=== PATIENT | female | born 1965 | race Two or more races ===

== ENCOUNTER 2020-09-06 09:55 | Outpatient (REF) | payer OTHER, SELFPAY ==
--- NOTE | ~2020-09-06 | MM_ITS ---
EXAMINATION: MM SCREENING DIGITAL BREAST TOMOSYNTHESIS, BILATERAL CLINICAL INFORMATION: Screening. Asymptomatic. The lifetime risk of breast cancer based on the Tyrer-Cuzick Model is 12%. COMPARISON: Mammography: 03/25/2019, 03/13/2018, 10/12/2016, 07/21/2015 TECHNIQUE: Digital breast tomosynthesis is performed in both the craniocaudal and mediolateral oblique views along with computer-aided detection (CAD). Synthesized 2D images are generated from the tomosynthesis. FINDINGS: There are scattered areas of fibroglandular density (ACR BI-RADS breast composition Category b). There are no significant masses, abnormal calcifications, or other abnormalities. Parenchymal pattern is similar to prior exams. No developing density. No significant changes. MM/MM tomosynthesis screening BI IMPRESSION: No mammographic evidence of malignancy. ASSESSMENT: BI-RADS 1: Negative RECOMMENDATION: Routine annual mammography screening. This patient's information was entered into a reminder system with a target due date for their next mammogram.
== END 2020-09-06 09:56 | disposition home or self-care (01) ==
LOC: HO.MAMMO 09:55
PROVIDERS: Visit Provider Internal Medicine
DX: Z12.31 Encounter for screening mammogram for malignant neoplasm of breast (principal)
CPT/HCPCS: 77063; 77067

== ENCOUNTER 2021-01-01 07:59 | Outpatient (REF) | payer OTHER, SELFPAY ==
[2021-01-01 08:49] LABS: Basophils Percent Auto 0.2 % (0-2); Eosinophils Absolute Auto 0.1 X10*3/uL (0.0-0.4); Eosinophils Percent Auto 1.5 % (0-4); Hematocrit 45.7 % (37-47); Hemoglobin 14.5 g/dl (12.0-16.0); Imm Gran Abs Auto 0.03 X10*3/uL (0.00-0.03); Imm Gran Pct Auto 0.4 % (0.0-0.4); Lymphocytes Absolute Auto 2.3 X10*3/uL (1.2-4.9); Lymphocytes Percent Auto 27.4 % (20-40); MANUAL DIFF FLAG SCAN; Mean Corpuscular HGB Conc 31.7 g/dl (31.0-35.0); Mean Corpuscular Hemoglobin 29.1 pg (27.0-33.0); Mean Corpuscular Volume 91.6 fL (80-98); Mean Platelet Volume 11.9 fL (9.4-12.3); Monocytes Absolute Auto 0.8 X10*3/uL (0.1-1.2); Monocytes Percent Auto 8.8 % (2-11); Neutrophils Absolute Auto 5.2 X10*3/uL (2.0-8.3); Neutrophils Percent Auto 61.7 % (45-73); Platelet Count 212 X10*3/uL (160-400); Red Blood Count 4.99 X10*6/uL (4.20-5.50); Red Cell Distribution Width 14.6 % (11.0-16.0); SCAN SMEAR FLAG 1; White Blood Count 8.5 X10*3/uL (4.8-10.8)
[2021-01-01 09:14] LABS: Alanine Aminotransferase 14 U/L (0-31); Albumin Level 4.1 g/dL (3.5-5.0); Alkaline Phosphatase 86 U/L (39-117); Anion Gap 13 (12-20); Aspartate Amino Transferase 19 U/L (5-31); Bilirubin Total 0.4 mg/dL (0.0-1.0); Blood Urea Nitrogen 7 mg/dL (9-16); Calcium 10.1 mg/dL (8.4-10.2); Carbon Dioxide 30 mmol/L (22-29); Chloride 106 mmol/L (96-108); Cholesterol 164 mg/dL; Estimated Glomerular Filt Rate > 60; Glucose Random 93 mg/dL (60-115); HDL Cholesterol 32 mg/dL; LDL Cholesterol Calculated 111 mg/dl; Potassium 5.6 mmol/L (3.3-5.1); Sodium 143 mmol/L (135-145); Total Protein 6.7 g/dL (6.5-8.0); Triglycerides 105 mg/dL
[2021-01-01 09:19] LABS: SLIDE REVIEW VERIFIED
[2021-01-01 09:35] LABS: Free T4 (Free Thyroxine) 0.82 ng/dL (0.71-1.85); Thyroid Stimulating Hormone 1.29 uIU/mL (0.32-4.0)
[2021-01-03 04:22] LABS: Folate 10.6 ng/mL (> or = 4.0); Vitamin B12 239 pg/mL (200-900)
== END 2021-01-01 08:00 | disposition home or self-care (01) ==
LOC: HO.LAB 07:59
PROVIDERS: Visit Provider Internal Medicine
DX: K21.9 Gastro-esophageal reflux disease without esophagitis (principal); E78.00 Pure hypercholesterolemia, unspecified
CPT/HCPCS: 36415; 80053; 80061; 82607; 82746; 84439; 84443; 85025

== ENCOUNTER 2021-01-26 07:34 | Outpatient (REF) | payer OTHER, SELFPAY ==
[2021-01-26 09:41] LABS: Anion Gap 12 (12-20); Blood Urea Nitrogen 6 mg/dL (9-16); Calcium 9.5 mg/dL (8.4-10.2); Carbon Dioxide 29 mmol/L (22-29); Chloride 106 mmol/L (96-108); Estimated Glomerular Filt Rate > 60; Glucose Random 89 mg/dL (60-115); Potassium 4.5 mmol/L (3.3-5.1); Sodium 142 mmol/L (135-145)
== END 2021-01-26 07:35 | disposition home or self-care (01) ==
LOC: HO.LAB 07:34
PROVIDERS: PCP Internal Medicine; Visit Provider Internal Medicine
DX: E87.5 Hyperkalemia (principal)
CPT/HCPCS: 36415; 80048

== ENCOUNTER 2021-07-12 11:23 | Outpatient (REF) | payer OTHER, SELFPAY ==
[2021-07-12 12:08] LABS: COVID-19 Test Positive (Negative)
== END 2021-07-12 11:24 | disposition home or self-care (01) ==
LOC: HO.LAB 11:23
PROVIDERS: Visit Provider Internal Medicine
DX: Z20.822 Contact with and (suspected) exposure to COVID-19 (principal)
CPT/HCPCS: 87635; C9803

== ENCOUNTER 2021-07-18 08:28 | Outpatient (REF) | payer OTHER, SELFPAY ==
[2021-07-18 09:46] LABS: Binax Internal Control QC Valid; Binax Now Covid-19 Ag Negative (Negative)
== END 2021-07-18 08:29 | disposition home or self-care (01) ==
LOC: HO.LAB 08:28
PROVIDERS: Visit Provider Internal Medicine
DX: Z20.822 Contact with and (suspected) exposure to COVID-19 (principal)
CPT/HCPCS: C9803

== ENCOUNTER 2021-07-28 13:08 | Outpatient (REF) | payer OTHER, SELFPAY ==
[2021-07-28 18:28] LABS: CT PCR NOT DETECTED (Not Detect.); NG PCR NOT DETECTED (Not Detect.)
[2021-08-02 23:27] LABS: HPV mRNA E6/E7 rflx Not Detected (Not Detected)
== END 2021-07-28 13:09 | disposition home or self-care (01) ==
LOC: HO.LAB 13:08
PROVIDERS: PCP Internal Medicine; Visit Provider Advanced Practice Midwife
DX: Z01.419 Encounter for gynecological examination (general) (routine) without abnormal findings (principal); Z11.3 Encounter for screening for infections with a predominantly sexual mode of transmission; Z11.8 Encounter for screening for other infectious and parasitic diseases; Z11.51 Encounter for screening for human papillomavirus (HPV); E78.00 Pure hypercholesterolemia, unspecified; E55.9 Vitamin D deficiency, unspecified; F17.210 Nicotine dependence, cigarettes, uncomplicated; Z88.6 Allergy status to analgesic agent; Z88.0 Allergy status to penicillin; Z78.0 Asymptomatic menopausal state
CPT/HCPCS: 87491; 87591; 87624; 88142

== ENCOUNTER 2021-08-05 10:10 | Outpatient (REF) | payer OTHER, SELFPAY ==
[2021-08-05 10:28] LABS: COVID-19 Test Negative (Negative)
== END 2021-08-05 10:11 | disposition home or self-care (01) ==
LOC: HO.LAB 10:10
PROVIDERS: Visit Provider Internal Medicine
DX: Z20.822 Contact with and (suspected) exposure to COVID-19 (principal)
CPT/HCPCS: 87635; C9803

== ENCOUNTER → 2021-08-25 15:11 | Outpatient (REF) | payer OTHER, SELFPAY ==
--- NOTE | 2021-08-25 15:16 | ECG_ITS ---
Test Reason : M54.9 Blood Pressure : / mmHG Vent. Rate : 072 BPM Atrial Rate : 072 BPM P-R Int : 130 ms QRS Dur : 078 ms QT Int : 394 ms P-R-T Axes : 075 065 065 degrees QTc Int : 431 ms Normal sinus rhythm Normal ECG When compared to the previous EKG of No significant changes seen Referred By: Jaymie Kaufman Electronically Signed By:Jose Burgos
== END ==
LOC: HO.CARD 15:11
PROVIDERS: PCP Internal Medicine; Visit Provider Nurse Practitioner Family
DX: M54.9 Dorsalgia, unspecified (principal)
CPT/HCPCS: 93005

== ENCOUNTER 2021-09-08 10:35 | Outpatient (REF) | payer OTHER, SELFPAY ==
--- NOTE | ~2021-09-08 | MM_ITS ---
EXAMINATION: MM SCREENING DIGITAL BREAST TOMOSYNTHESIS, BILATERAL CLINICAL INFORMATION: Screening. Asymptomatic. The lifetime risk of breast cancer based on the Tyrer-Cuzick Model is 7%. COMPARISON: Mammography: 09/06/2020, 03/25/2019, 03/13/2018 TECHNIQUE: Digital breast tomosynthesis is performed in both the craniocaudal and mediolateral oblique views along with computer-aided detection (CAD). Synthesized 2D images are generated from the tomosynthesis. FINDINGS: There are scattered areas of fibroglandular density (ACR BI-RADS breast composition Category b). There are no significant masses, abnormal calcifications, or other abnormalities. Parenchymal pattern is similar to prior studies. The axilla and skin contours are unremarkable. No significant changes. MM/MM tomosynthesis screening BI IMPRESSION: No mammographic evidence of malignancy. ASSESSMENT: BI-RADS 1: Negative RECOMMENDATION: Routine annual mammography screening. This patient's information was entered into a reminder system with a target due date for their next mammogram.
== END 2021-09-08 10:36 | disposition home or self-care (01) ==
LOC: HO.MAMMO 10:35
PROVIDERS: PCP Internal Medicine; Visit Provider Internal Medicine
DX: Z12.31 Encounter for screening mammogram for malignant neoplasm of breast (principal)
CPT/HCPCS: 77063; 77067

== ENCOUNTER 2021-11-04 09:03 | Emergency (ER) | payer OTHER, SELFPAY ==
--- NOTE | ~2021-11-04 | CT_ITS ---
EXAMINATION: CT HEAD WITHOUT CONTRAST CLINICAL INFORMATION: New dizziness. COMPARISON: Head CT scan dated 02/14/2007. TECHNIQUE: Contiguous axial imaging was performed from the skull base to vertex without intravenous administration of contrast. Coronal and sagittal reformatted images were obtained. This CT examination was performed using dose optimization techniques as appropriate, variously including the following: *Automated exposure control *Adjustment of mA and/or kV according to patient size (this includes techniques or standardized protocols for targeted exams where dose is matched to indication/reason for exam; i.e. extremities or head) *Use of iterative reconstruction technique DLP: 604 mGy-cm FINDINGS: There is no evidence of acute intracranial hemorrhage or territorial infarction. No abnormal mass effect or midline shift is seen. Douglas to white matter differentiation is well preserved. No extra-axial fluid collections are identified. The ventricles are normal in size. There is no abnormal attenuation within the brain parenchyma. The osseous structures and soft tissues are normal. The mastoid air cells and visualized portions of the paranasal sinuses are well aerated. CT/CT head/brain wo con IMPRESSION: No acute intracranial pathology.
[2021-11-04 09:07] VITALS: BP 152/63; PULSE 72; RESP 19; TEMP 36.6; O2SAT 100; BMI 20.1
[2021-11-04 10:34] VITALS: PULSE 59; RESP 16; O2SAT 100
[2021-11-04] MEDS: Ondansetron ODT 4 MG TAB.RAPDIS TRANSLINGU (10:41)
[2021-11-04] MEDS: Acetaminophen 325 MG TABLET 650 MG PO (10:41)
[2021-11-04] MEDS: Meclizine HCl 25 MG TABLET 50 MG PO (10:42)
--- NOTE | 2021-11-04 10:43 | PC.NURSE ---
Neuros are intact. Per Lindsey, small effusion noted in left ear. Speech clear. Denies cp or SOB. Sinus ozzy on tele
--- NOTE | 2021-11-04 11:18 | ED.DIZZY ---
HPI - Dizziness General Chief Complaint: Dizziness Stated Complaint: dizziness Time Seen by Provider: 11/04/21 10:04 Related Data Home Medications Medication Instructions Recorded Confirmed docusate sodium 100 mg capsule 100 mg PO DAILY 05/06/20 08/25/21 (Colace) eletriptan 20 mg tablet (Relpax) 20 mg PO Q2-4H PRN 05/06/20 08/25/21 Previous Rx's Medication Instructions Recorded omeprazole 20 mg capsule,delayed 20 mg PO DAILY #30 cap 05/06/20 release bupropion HCl 100 mg tablet,12 hr 100 mg PO TID #60 cap 06/15/20 sustained-release propranolol 10 mg tablet 10 mg PO BID #60 tab 09/20/20 amitriptyline 10 mg tablet 10 mg PO DAILY #90 tab 02/22/21 lidocaine 4 % topical patch 1 patch TOPICAL DAILY PRN #15 ea 08/25/21 (Aspercreme (lidocaine)) naproxen 500 mg tablet (Naprosyn) 500 mg PO BID PRN #20 tab 08/25/21 polyethylene glycol 3350 17 17 g PO DAILY #850 g 08/25/21 gram/dose oral powder (Miralax) tizanidine 2 mg tablet 2 mg PO BEDTIME PRN #7 tab 08/25/21 Allergies Allergy/AdvReac Type Severity Reaction Status Date / Time morphine [MORPHINE] Allergy Intermediate VOMITING Verified 08/25/21 14:50 Penicillins [PENICILLINS] Allergy Intermediate RASH Verified 08/25/21 14:50 PMFSH Past Medical History Medical History GERD (gastroesophageal reflux disease) Hypercholesterolemia Migraine Smoking Tobacco abuse Vitamin D deficiency Surgical History History of removal of ovarian cyst Family History Family History Father CVD (cardiovascular disease) Stroke FH: prostate cancer Mother Diabetes CVD (cardiovascular disease) Hypertension Sister Cancer Breast carcinoma Maternal Aunt Cancer Maternal Grandmother CVD (cardiovascular disease) Brother Substance abuse Social History Social History Housing: Apartment Alcohol intake: current Alcohol intake frequency: does not drink Patient Tobacco Use Status: Never used Tobacco Cigarette Packs Per Day: 0.25 Cigarettes Per Day: 5 e-Cigarette/Vaping Use: Never Used Second Hand Smoke Exposure: Yes Use of substances other than those prescribed or required for medical reasons: No Advance Directives: No Advance Directives Information Provided: Yes service: No Current occupational status: employed Physical Exam Vital Signs: Vital Signs: Last Vital Signs Temp 98 F 11/04/21 09:07 Pulse 59 11/04/21 10:34 Resp 16 11/04/21 10:34 BP 152/63 H 11/04/21 09:07 Pulse Ox 100 11/04/21 10:34 BMI result Body Mass Index 20.1 Discharge Plan Discharge Prescriptions: No Action bupropion HCl 100 mg tablet sustained-release 12 hr 100 mg PO TID Qty: 60 2RF propranolol 10 mg tablet 10 mg PO BID Qty: 60 11RF amitriptyline 10 mg tablet 10 mg PO DAILY Qty: 90 2RF docusate sodium [Colace] 100 mg capsule 100 mg PO DAILY 0RF eletriptan [Relpax] 20 mg tablet 20 mg PO Q2-4H PRN0RF Rx Instructions: do not exceed 4 doses per 24 hrs omeprazole 20 mg capsule,delayed release(DR/EC) 20 mg PO DAILY Qty: 30 5RF polyethylene glycol 3350 [Miralax] 17 gram/dose powder 17 g PO DAILY Qty: 850 0RF lidocaine [Aspercreme (lidocaine HCl)] 4 % adhesive patch,medicated 1 patch topical DAILY PRN (Reason: pain) Qty: 15 0RF naproxen [Naprosyn] 500 mg tablet 500 mg PO BID PRN (Reason: pain) Qty: 20 0RF tizanidine 2 mg tablet 2 mg PO BEDTIME PRN (Reason: muscle spasticity) Qty: 7 0RF
--- NOTE | 2021-11-04 11:21 | ED_ITS ---
HPI - Dizziness General Chief Complaint: Dizziness Stated Complaint: dizziness Time Seen by Provider: 11/04/21 10:04 Source: patient Mode of arrival: ambulatory Limitations: no limitations History of Present Illness HPI Narrative: 56-year-old female presents with sudden onset of vertigo that started yesterday morning at 07:00. Patient woke up, and when she sat up in bed, the room was spinning. The sensation of spinning is worse with movement, worse when she turns her head. She feels nauseous. It is hard to walk because of the spinning. No vomiting, no fevers, no recent upper respiratory infection, no his tory of seasonal allergies, no chest pain, no shortness of breath. Patient describes vertigo, as if getting off a boat and the ground is uneven, or what happens when you drink too much alcohol. She is not endorsing lightheadedness or presyncope. Patient has never had this before this is a new symptom. Related Data Home Medications Medication Instructions Recorded Confirmed docusate sodium 100 mg capsule 100 mg PO DAILY 05/06/20 08/25/21 (Colace) eletriptan 20 mg tablet (Relpax) 20 mg PO Q2-4H PRN 05/06/20 08/25/21 Previous Rx's Medication Instructions Recorded omeprazole 20 mg capsule,delayed 20 mg PO DAILY #30 cap 05/06/20 release bupropion HCl 100 mg tablet,12 hr 100 mg PO TID #60 cap 06/15/20 sustained-release propranolol 10 mg tablet 10 mg PO BID #60 tab 09/20/20 amitriptyline 10 mg tablet 10 mg PO DAILY #90 tab 02/22/21 lidocaine 4 % topical patch 1 patch TOPICAL DAILY PRN #15 ea 08/25/21 (Aspercreme (lidocaine)) naproxen 500 mg tablet (Naprosyn) 500 mg PO BID PRN #20 tab 08/25/21 polyethylene glycol 3350 17 17 g PO DAILY #850 g 08/25/21 gram/dose oral powder (Miralax) tizanidine 2 mg tablet 2 mg PO BEDTIME PRN #7 tab 08/25/21 meclizine 25 mg tablet 25 mg PO BID PRN #14 tab 11/04/21 ondansetron 4 mg disintegrating 4 mg PO Q8H PRN #9 tab 11/04/21 tablet Allergies Allergy/AdvReac Type Severity Reaction Status Date / Time morphine [MORPHINE] Allergy Intermediate VOMITING Verified 08/25/21 14:50 Penicillins [PENICILLINS] Allergy Intermediate RASH Verified 08/25/21 14:50 Review of Systems Constitutional: Constitutional: Denies body ache(s), Denies chills, Denies fatigue, Denies fever(s), Denies headache(s), Denies malaise and Denies weakness Eyes: Eyes: Denies diplopia and Denies loss of vision ENT: Reports Normal hearing present, Reports vertigo, Reports dizziness, Denies otalgia, Denies headache(s), Denies mouth pain, Denies neck pain, Denies post nasal drip, Denies sinus pain, Denies sinus pressure, Denies sore throat and Denies throat swelling Cardiovascular: Cardiovascular: Denies chest pain, Denies syncope, Denies leg edema, Denies lightheadedness, Denies Loss of Consciousness, Denies palpitations and Denies dyspnea Respiratory: Respiratory: Denies chest congestion, Denies cough and Denies dyspnea Gastrointestinal: Gastrointestinal: Denies abdominal pain, Denies hematochezia, Denies constipation, Denies diarrhea, Reports nausea and Denies vomiting Musculoskeletal: Musculoskeletal: Reports no additional musculoskeletal complaints, Denies muscle weakness, Denies neck pain and Denies tingling Neurologic: Reports Normal hearing present, Denies Neuro-related abnormal movements, Denies Abnormal speech present, Denies burning sensations, Denies confusion, Reports vertigo, Reports dizziness, Denies syncope, Denies headache(s), Denies focal weakness, Denies loss of vision, Denies Other visual disturbances, Denies seizure-like activity, Denies Sensory deficit (Neuro), Denies tingling, Denies paresthesias and Denies weakness Psychiatric: Psychiatric: Denies anxiety, Denies confusion and Denies depression Endocrine: Endocrine: Denies fatigue and Denies palpitations Allergic/Immunologic: Allergic/Immunologic: Denies throat swelling PMFSH Past Medical History Medical History GERD (gastroesophageal reflux disease) Hypercholesterolemia Migraine Smoking Tobacco abuse Vitamin D deficiency Surgical History History of removal of ovarian cyst Family History Family History Father CVD (cardiovascular disease) Stroke FH: prostate cancer Mother Diabetes CVD (cardiovascular disease) Hypertension Sister Cancer Breast carcinoma Maternal Aunt Cancer Maternal Grandmother CVD (cardiovascular disease) Brother Substance abuse Social History Social History Housing: Apartment Alcohol intake: current Alcohol intake frequency: does not drink Patient Tobacco Use Status: Never used Tobacco Cigarette Packs Per Day: 0.25 Cigarettes Per Day: 5 e-Cigarette/Vaping Use: Never Used Second Hand Smoke Exposure: Yes Use of substances other than those prescribed or required for medical reasons: No Advance Directives: No Advance Directives Information Provided: Yes service: No Current occupational status: employed Physical Exam Vital Signs: Vital Signs: Last Vital Signs Temp 98 F 11/04/21 09:07 Pulse 59 11/04/21 10:34 Resp 16 11/04/21 10:34 BP 152/63 H 11/04/21 09:07 Pulse Ox 100 11/04/21 10:34 BMI result Body Mass Index 20.1 Const: General: No confusion Nutritional Appearance: well nourished Orientation/consciousness: patient oriented x3 and No confusion Limitations: no limitations HEENT: Head: Yes normal to inspection, Yes normocephalic and Yes atraumatic Ears: hearing grossly normal bilaterally, external ears normal, TM normal on the right, EAC's normal and TM abnormal wth effusion serosanguinous on the left General nose exam: Normal external nose present Face and sinus: Yes normal facial exam and Yes sinuses nontender Mouth: Normal oral and palatal mucosa present Throat: Yes posterior oropharynx normal Eyes: Conjunctivae: conjunctivae normal Pupils: Equal, round and reactive pupils present EOM: EOMs intact bilaterally and No Nystagmus present Neck: Neck: Yes full ROM, Yes no lymphadenopathy and Yes supple Resp: Effort & Inspection: normal respiratory effort and able to speak in complete sentences Auscultation: clear to auscultation bilaterally, no crackles, no rales, no rhonchi and no wheezes Cardio: Rate: regular rate Rhythm: regular rhythm Heart sounds: S1 normal heart sound present and S2 normal heart sound present GI: Inspection: Yes normal to inspection Palpation (GI): Soft to palpation, nontender, no guarding and not rigid Percussion: Yes normal to percussion Auscultation: normal bowel sounds Skin: General skin exam: no rashes or lesions noted Neuro: General: patient oriented x3, No confusion and Unable to assess gait (due to dizziness) Cranial nerves: Yes CN's II-XII intact bilaterally, Yes Facial sensation intact/muscles of mastication intact, Yes Equal, round and reactive pupils present, Yes Normal accommodation reflex present, Yes Bilaterally intact EOM present, Yes Nystagmus not present, Yes Normal facial strength present, Yes Midline tongue present, Yes Normal hearing present, Yes Ability to bilaterally rotate head present, Yes Ability to bilaterally elevate shoulders present and No Nystagmus present Cognition (Neuro): normal cognition Speech: No Abnormal speech present Gait exam (Neuro): Unable to assess gait (due to dizziness) Motor exam (neuro): 5/5 motor strength present throughout and Pronator motor function not present Sensory Exam: No Sensory deficit (Neuro) Deep tendon reflexes (DTR's): Right brachioradialis reflex intensity grade: 1+, Left brachioradialis reflex intensity grade: 1+, Right patellar reflex intensity grade: 1+ and Left patellar reflex intensity grade: 1+ Coordination: [id number] test normal and [id number] test normal Romberg Test: Negative Pupils: Normal pupillary reactivity/response: bilateral Extrem: General: Yes normal to inspection and Yes full ROM Psych: Appearance: grossly normal Affect: normal affect Attitude: cooperative Thought process: Normal thought process present Course Course Course Narrative: 56-year-old female with a past medical history of generalized anxiety disorder, GERD, hyperlipidemia, and migraine, presents with sudden onset of vertigo that started yesterday morning at 07:00. Patient woke up, and when she sat up in bed, the room was spinning. The sensation of spinning is worse with movement, worse when she turns her head. She feels nauseous. It is hard to walk because of the spinning. No vomiting, no fevers, no recent upper respiratory infection, no history of seasonal allergies, no chest pain, no shortness of breath. Patient describes vertigo, as if getting off a boat and the ground is uneven, or what happens when you drink too much alcohol. She is not endorsing lightheadedness or presyncope. Patient has never had this before this is a new symptom. On exam, patient has stable vitals, is alert and oriented x4, GCS 15, completely neurologically intact. Did not walk patient because her vertigo worsens with movement and with sitting up There is a left TM opaque effusion, ENT exam otherwise normal Will get head CT as this is the 1st episode of vertigo, will try meclizine, Tylenol, Zofran Reevaluation(s) Reevaluation #1: On re-exam, patient's dizziness has almost entirely resolved Head CT is normal Patient walked twice with the nurse, no vertigo she was able to ambulate without assistance and without problem Most likely benign paroxysmal positional vertigo. Will have patient follow-up with primary care provider Will order meclizine and Zofran Gave return precautions. Patient verbalized agreement and understanding Discharge Plan Discharge Clinical Impression: Benign paroxysmal positional vertigo of left ear Patient Disposition: Home, Self-Care Instructions: Benign Paroxysmal Positional Vertigo (ED) Additional Instructions: Please call your primary care provider for follow-up appointment from today's emergency room visit. Please fill your prescriptions and take them as needed. Do not take more than 2 tablets of meclizine at once. Do not take more than 2 tablets of meclizine every 8 hours. If you have sudden severe headache, vomiting, fevers, chest pain, shortness of breath, or any other new or concerning symptoms, please return to emergency room Prescriptions: New meclizine 25 mg tablet 25 mg PO BID PRN (Reason: dizziness) Qty: 14 0RF ondansetron 4 mg tablet,disintegrating 4 mg PO Q8H PRN (Reason: nausea and vomiting) Qty: 9 0RF No Action bupropion HCl 100 mg tablet sustained-release 12 hr 100 mg PO TID Qty: 60 2RF propranolol 10 mg tablet 10 mg PO BID Qty: 60 11RF amitriptyline 10 mg tablet 10 mg PO DAILY Qty: 90 2RF docusate sodium [Colace] 100 mg capsule 100 mg PO DAILY 0RF eletriptan [Relpax] 20 mg tablet 20 mg PO Q2-4H PRN0RF Rx Instructions: do not exceed 4 doses per 24 hrs omeprazole 20 mg capsule,delayed release(DR/EC) 20 mg PO DAILY Qty: 30 5RF polyethylene glycol 3350 [Miralax] 17 gram/dose powder 17 g PO DAILY Qty: 850 0RF lidocaine [Aspercreme (lidocaine HCl)] 4 % adhesive patch,medicated 1 patch topical DAILY PRN (Reason: pain) Qty: 15 0RF naproxen [Naprosyn] 500 mg tablet 500 mg PO BID PRN (Reason: pain) Qty: 20 0RF tizanidine 2 mg tablet 2 mg PO BEDTIME PRN (Reason: muscle spasticity) Qty: 7 0RF
--- NOTE | 2021-11-04 11:58 | MHC.CM.ED ---
Received notification from Diana in registration that patient would like to complete a HCP. Met with patient. HCP completed, signed and witnessed. Original given to patient. Copy placed in chart.
== END 2021-11-04 13:16 | disposition home or self-care (01) ==
PROVIDERS: Emergency Provider Emergency Medicine; PCP Internal Medicine
DX: H81.12 Benign paroxysmal vertigo, left ear (principal); F17.210 Nicotine dependence, cigarettes, uncomplicated
CPT/HCPCS: 70450; 99284

== ENCOUNTER 2021-11-12 08:55 | Outpatient (REF) | payer OTHER, SELFPAY ==
[2021-11-12 09:12] LABS: MANUAL DIFF FLAG NO
[2021-11-12 09:22] LABS: Basophils Absolute Auto 0.1 X10*3/uL (0.0-0.2); Basophils Percent Auto 0.6 % (0-2); Eosinophils Absolute Auto 0.1 X10*3/uL (0.0-0.4); Eosinophils Percent Auto 1.4 % (0-4); Hematocrit 44.4 % (37.0-47.0); Hemoglobin 14.2 g/dl (12.0-16.0); Imm Gran Abs Auto 0.02 X10*3/uL (0.00-0.03); Imm Gran Pct Auto 0.2 % (0.0-0.4); Lymphocytes Absolute Auto 2.3 X10*3/uL (1.2-4.9); Lymphocytes Percent Auto 27.3 % (20-40); Mean Corpuscular Hemoglobin 29.2 pg (27.0-33.0); Mean Corpuscular Volume 91.2 fL (80.0-98.0); Mean Platelet Volume 10.9 fL (9.4-12.3); Monocytes Absolute Auto 0.7 X10*3/uL (0.1-1.2); Monocytes Percent Auto 7.8 % (2-11); Neutrophils Absolute Auto 5.2 x10*3/uL (2.0-8.3); Neutrophils Percent Auto 62.7 % (45-73); Platelet Count 200 X10*3/uL (160-400); Red Blood Count 4.87 X10*6/uL (4.20-5.50); Red Cell Distribution Width 14.4 % (11.0-16.0); White Blood Count 8.3 X10*3/uL (4.8-10.8)
[2021-11-12 09:39] LABS: Alanine Aminotransferase 16 U/L (0-31); Alkaline Phosphatase 102 U/L (39-117); Anion Gap 11 (12-20); Aspartate Amino Transferase 19 U/L (5-31); Bilirubin Total 0.4 mg/dL (0.0-1.0); Blood Urea Nitrogen 5 mg/dL (9-16); Calcium 9.6 mg/dL (8.4-10.2); Carbon Dioxide 30 mmol/L (22-29); Chloride 106 mmol/L (96-108); Cholesterol 208 mg/dL; Estimated Glomerular Filt Rate > 60; Glucose Random 113 mg/dL (60-115); HDL Cholesterol 31 mg/dL; LDL Cholesterol Calculated 139 mg/dl; Potassium 4.7 mmol/L (3.3-5.1); Sodium 142 mmol/L (135-145); Total Protein 6.6 g/dL (6.5-8.0); Triglycerides 192 mg/dL
[2021-11-12 10:00] LABS: Thyroid Stimulating Hormone 1.26 uIU/mL (0.32-4.0); Vitamin D 25-OH Total 11.4 ng/mL (>30)
[2021-11-14 06:54] LABS: Folate 14.3 ng/mL (> or = 4.0); Vitamin B12 266 pg/mL (200-900)
== END 2021-11-12 08:56 | disposition home or self-care (01) ==
LOC: HO.LAB 08:55
PROVIDERS: PCP Internal Medicine; Visit Provider Internal Medicine
DX: E78.00 Pure hypercholesterolemia, unspecified (principal)
CPT/HCPCS: 36415; 80053; 80061; 82306; 82607; 82746; 84439; 84443; 85025

== ENCOUNTER 2021-12-20 09:40 | Outpatient (REF) | payer OTHER, SELFPAY ==
[2021-12-23 04:32] LABS: HPV mRNA E6/E7 rflx Not Detected (Not Detected)
== END 2021-12-20 09:41 | disposition home or self-care (01) ==
LOC: HO.LAB 09:40
PROVIDERS: Visit Provider Advanced Practice Midwife
DX: Z12.4 Encounter for screening for malignant neoplasm of cervix (principal); Z11.51 Encounter for screening for human papillomavirus (HPV); R87.615 Unsatisfactory cytologic smear of cervix
CPT/HCPCS: 87624; 88142; 99212

== ENCOUNTER 2022-02-28 15:58 | Outpatient (REF) | payer OTHER, SELFPAY | END 2022-02-28 15:59 | disposition home or self-care (01) | LOC: HO.LNP 15:58 | PROVIDERS: PCP Internal Medicine; Visit Provider Obstetrics & Gynecology | DX: R87.615 Unsatisfactory cytologic smear of cervix (principal) | CPT/HCPCS: 57454; 57455; 88305 ==

== ENCOUNTER 2022-03-03 12:25 | Outpatient (REF) | payer OTHER, SELFPAY ==
[2022-03-03 13:43] LABS: COVID-19 Test Negative (Negative)
== END 2022-03-03 12:26 | disposition home or self-care (01) ==
LOC: HO.LAB 12:25
PROVIDERS: Visit Provider Internal Medicine
DX: Z20.822 Contact with and (suspected) exposure to COVID-19 (principal)
CPT/HCPCS: 87635; C9803

== ENCOUNTER → 2022-03-14 11:17 | Outpatient (BNVA) | payer OTHER, SELFPAY | PROVIDERS: PCP Internal Medicine; Visit Provider Obstetrics & Gynecology | DX: N87.0 Mild cervical dysplasia (principal) | CPT/HCPCS: 99212 ==

== ENCOUNTER 2022-04-05 10:01 | Outpatient (REF) | payer OTHER, SELFPAY ==
[2022-04-05 10:47] LABS: COVID-19 Test Negative (Negative)
== END 2022-04-05 10:02 | disposition home or self-care (01) ==
LOC: HO.LAB 10:01
PROVIDERS: Visit Provider Internal Medicine
DX: Z20.822 Contact with and (suspected) exposure to COVID-19 (principal)
CPT/HCPCS: 87635; C9803

== ENCOUNTER 2022-07-22 08:43 | Outpatient (REF) | payer OTHER, SELFPAY ==
[2022-07-22 08:53] LABS: MANUAL DIFF FLAG NO
[2022-07-22 09:23] LABS: Basophils Absolute Auto 0.1 X10*3/uL (0.0-0.2); Basophils Percent Auto 0.5 % (0-2); Eosinophils Absolute Auto 0.2 X10*3/uL (0.0-0.4); Eosinophils Percent Auto 1.8 % (0-4); Hematocrit 43.9 % (37.0-47.0); Hemoglobin 14.2 g/dl (12.0-16.0); Imm Gran Abs Auto 0.05 X10*3/uL (0.00-0.03); Imm Gran Pct Auto 0.5 % (0.0-0.4); Lymphocytes Absolute Auto 2.4 X10*3/uL (1.2-4.9); Lymphocytes Percent Auto 23.6 % (20-40); Mean Corpuscular HGB Conc 32.3 g/dl (31.0-35.0); Mean Corpuscular Hemoglobin 29.3 pg (27.0-33.0); Mean Corpuscular Volume 90.5 fL (80.0-98.0); Mean Platelet Volume 11.9 fL (9.4-12.3); Monocytes Absolute Auto 0.9 X10*3/uL (0.1-1.2); Monocytes Percent Auto 8.7 % (2-11); Neutrophils Absolute Auto 6.7 x10*3/uL (2.0-8.3); Neutrophils Percent Auto 64.9 % (45-73); Platelet Count 240 X10*3/uL (160-400); Red Blood Count 4.85 X10*6/uL (4.20-5.50); White Blood Count 10.3 X10*3/uL (4.8-10.8)
[2022-07-22 09:31] LABS: Estimated Average Glucose 108 mg/dL; Hemoglobin A1c % 5.4 %
[2022-07-22 09:53] LABS: Alanine Aminotransferase 17 U/L (0-31); Albumin Level 4.1 g/dL (3.5-5.0); Alkaline Phosphatase 109 U/L (39-117); Anion Gap 10 (12-20); Aspartate Amino Transferase 18 U/L (5-31); Bilirubin Total 0.5 mg/dL (0.0-1.0); Blood Urea Nitrogen 11 mg/dL (9-16); Calcium 9.6 mg/dL (8.4-10.2); Carbon Dioxide 31 mmol/L (22-29); Chloride 105 mmol/L (96-108); Cholesterol 185 mg/dL; Estimated Glomerular Filt Rate > 60; Glucose Random 90 mg/dL (60-115); HDL Cholesterol 29 mg/dL; LDL Cholesterol Calculated 110 mg/dl; Potassium 4.3 mmol/L (3.3-5.1); Sodium 142 mmol/L (135-145); Total Protein 6.6 g/dL (6.5-8.0); Triglycerides 231 mg/dL
[2022-07-22 10:09] LABS: Thyroid Stimulating Hormone 2.13 uIU/mL (0.32-4.0); Vitamin D 25-OH Total 28.6 ng/mL (>30)
[2022-07-22 10:23] LABS: Folate 14.3 ng/mL (> or = 4.0); Vitamin B12 1091 pg/mL (200-900)
== END 2022-07-22 08:44 | disposition home or self-care (01) ==
LOC: HO.LAB 08:43
PROVIDERS: PCP Internal Medicine; Visit Provider Internal Medicine
DX: E78.00 Pure hypercholesterolemia, unspecified (principal)
CPT/HCPCS: 36415; 80053; 80061; 82306; 82607; 82746; 83036; 84443; 85025

== ENCOUNTER 2022-08-16 11:02 | Outpatient (REF) | payer OTHER, SELFPAY ==
[2022-08-17 10:02] LABS: CT PCR NOT DETECTED (Not Detect.); NG PCR NOT DETECTED (Not Detect.)
== END 2022-08-16 11:03 | disposition home or self-care (01) ==
LOC: HO.LNP 11:02
PROVIDERS: PCP Internal Medicine; Visit Provider Advanced Practice Midwife
DX: Z11.3 Encounter for screening for infections with a predominantly sexual mode of transmission (principal)
CPT/HCPCS: 0353U

== ENCOUNTER 2022-09-14 10:47 | Outpatient (REF) | payer OTHER, SELFPAY ==
--- NOTE | ~2022-09-14 | MM_ITS ---
EXAMINATION: MM SCREENING DIGITAL BREAST TOMOSYNTHESIS, BILATERAL CLINICAL INFORMATION: Screening. Asymptomatic. The lifetime risk of breast cancer based on the Tyrer-Cuzick Model is 6.7%. COMPARISON: Mammography: September 08, 2021 and studies dating back to July 21, 2015 TECHNIQUE: Digital breast tomosynthesis is performed in both the craniocaudal and mediolateral oblique views along with computer-aided detection (CAD). Synthesized 2D images are generated from the tomosynthesis. FINDINGS: There are scattered areas of fibroglandular density (ACR BI-RADS breast composition Category b). There are no significant masses, abnormal calcifications, or other abnormalities. MM/MM tomosynthesis screening BI IMPRESSION: No significant changes ASSESSMENT: BI-RADS 1: Negative RECOMMENDATION: Routine annual mammography screening. This patient's information was entered into a reminder system with a target due date for their next mammogram.
== END 2022-09-14 10:48 | disposition home or self-care (01) ==
LOC: HO.MAMMO 10:47
PROVIDERS: Visit Provider Internal Medicine
DX: Z12.31 Encounter for screening mammogram for malignant neoplasm of breast (principal)
CPT/HCPCS: 77063; 77067

== ENCOUNTER 2023-03-11 16:04 | Inpatient (IN) | payer OTHER, SELFPAY ==
--- NOTE | ~2023-03-11 | US_ITS ---
EXAMINATION: US ABDOMEN LIMITED CLINICAL INFORMATION: Right-sided abdominal pain. Suspected cholecystitis.. COMPARISON: None available. TECHNIQUE: Real-time imaging of the right upper quadrant abdominal viscera. FINDINGS: PANCREAS: Normal. LIVER: Normal. The liver is normal in size. The liver contour is normal. Parenchymal echogenicity is normal. No focal hepatic lesion. There is no intrahepatic biliary duct dilatation seen. GALLBLADDER: Mildly distended, shows mild gallbladder wall thickening and multiple gallbladder calculi. Sonographic Nation's sign apparently was present as was elicited by the technologist at the time of the examination. COMMON BILE DUCT: Mildly dilated measuring 0.8 cm. RIGHT KIDNEY: Normal. No hydronephrosis. No renal calculi or focal parenchymal lesions. The kidney measures 8.4 cm in maximum dimension. FREE FLUID: None. US/US abdomen limited IMPRESSION: 1. Cholelithiasis with mild gallbladder wall thickening and apparent positive sonographic Nation's sign, suspicious for acute cholecystitis in the appropriate clinical setting. 2. Mildly dilated common bile duct. 3. Morphologically unremarkable pancreas and liver and grossly unremarkable right kidney.
[2023-03-11 16:24] VITALS: BP 152/62; PULSE 80; RESP 18; TEMP 36.6; O2SAT 98; BMI 21.9
--- NOTE | 2023-03-11 16:29 | ED_ITS ---
HPI - General Adult General Chief complaint: Back Pain/Injury Stated complaint: R side pain / feels heavy Time Seen by Provider: 03/11/23 19:04 Source: patient Mode of arrival: ambulatory Limitations: no limitations History of Present Illness HPI narrative: Patient with significant past medical history notice pain right upper abdomen since 03:00. Patient was sleeping woke up to go to bathroom and noticed slight pain on the right upper abdomen took some Tylenol went to sleep woke up again at 08:00 with more pain which the day got worse associated with nausea no vomiting no history of any urinary complaints no kidney stone patient never had similar pain in the past patient had early dinner yesterday and had just Soup no fever no chills Related Data Home Medications Medication Instructions Recorded Confirmed docusate sodium 100 mg capsule 100 mg PO DAILY 05/06/20 03/12/23 (Colace) Previous Rx's Medication Instructions Recorded naproxen 500 mg tablet (Naprosyn) 500 mg PO BID PRN pain #20 tabs 08/25/21 cholecalciferol (vitamin D3) 50 50 mcg PO DAILY 90 days #90 caps 01/27/22 mcg (2,000 unit) capsule cyanocobalamin (vitamin B-12) 1,000 mcg PO DAILY #30 caps 01/27/22 1,000 mcg capsule duloxetine 20 mg capsule,delayed 20 mg PO BEDTIME 90 days #90 caps 09/12/22 release omeprazole 20 mg capsule,delayed 20 mg PO DAILY 90 days #90 caps 09/12/22 release propranolol 10 mg tablet 10 mg PO BID #60 tabs 09/12/22 cyproheptadine 4 mg tablet 4 mg PO .qd 30 days #30 tabs 11/08/22 rizatriptan 10 mg tablet 10 mg PO .QD PRN migraine headache 11/22/22 30 days #14 tabs Allergies Allergy/AdvReac Type Severity Reaction Status Date / Time morphine [MORPHINE] Allergy Intermediate VOMITING Verified 12/19/22 10:50 Penicillins [PENICILLINS] Allergy Intermediate RASH Verified 12/19/22 10:50 Review of Systems 2 Review of Systems: Yes all other systems are reviewed and are negative PMFSH Past Medical History Medical History Annual physical exam Constipation Dyspareunia Dysplasia of cervix, low grade (MAGALY 1) Dysuria GERD (gastroesophageal reflux disease) Hypercholesterolemia Hyperkalemia Migraine Tobacco abuse Upper back pain UTI (urinary tract infection) Vitamin D deficiency Surgical History History of removal of ovarian cyst Family History Family History (Updated 12/19/22 @ 10:51 by Renetta Monroe [facility]) Father CVD (cardiovascular disease) Stroke FH: prostate cancer Mother Diabetes CVD (cardiovascular disease) Hypertension Sister Cancer Breast carcinoma Maternal Aunt Cancer Maternal Grandmother CVD (cardiovascular disease) Brother Substance abuse CVD (cardiovascular disease) Brother Colon cancer Social History Social History Housing: Apartment Alcohol intake: current Alcohol intake frequency: holidays/special occasions only Patient Tobacco Use Status: Current everyday Tobacco user Tobacco use type: Cigarette Cigarette Packs Per Day: 0.25 Cigarettes Per Day: 8 Smoked in Last 30 Days: Yes e-Cigarette/Vaping Use: Never Used Second Hand Smoke Exposure: Yes Use of substances other than those prescribed or required for medical reasons: Yes Substance Use Type: Crack/Cocaine Advance Directives: No Advance Directives Information Provided: No Nutrition Risks: No Nutritional Risk service: No Current occupational status: employed Sexual orientation: Straight/Heterosexual Gender identity: Female Cognitive needs: No Hearing needs: No Vision needs: Yes Physical Exam ED Vital Signs: Vital Signs - 24 hr 03/11/23 16:24 03/11/23 19:17 Temperature 98 F Pulse Rate 80 62 Respiratory Rate 18 16 Blood Pressure 152/62 H 151/65 H Pulse Oximetry 98 99 Oxygen Delivery Method Room Air Room Air BMI result Body Mass Index 21.9 Appearance: Alert. Oriented X3. in Mild distress Eyes: No pallor no icterus ENT: Pharynx normal. Oral Mucosa moist Neck: Normal inspection. Neck supple. CVS: Normal heart rate and rhythm. Pulses normal. Respiratory: No respiratory distress. Equal air entry bilateral, no wheezing/rales/rhonchi Abdomen: Soft, tenderness right upper quadrant with guarding no rebound tenderness. Bowel sounds are present, no mass palpable, no CVA tenderness Skin: Skin warm and dry. Normal skin color. Normal skin turgor. Extremities: No lower extremity edema. No calf tenderness Neuro: Oriented X 3. Course Course Course Narrative: RME: 57 yold female presents to the ED For RIght upper quadrant pain radiating to back and RLQ pain. Labs ordered and US ordered. Fmaily hisotry of cholecystemoty Medications Administered Generic Name Dose Route Start Last Admin Trade Name Freq PRN Reason Stop Dose Admin Hydromorphone HCl 0.5 mg 03/11/23 20:09 03/11/23 22:23 Hydromorphone Hcl 1 Mg/Ml Syringe IVPUSH 0.5 mg Q4H PRN Administration Pain, Severe (Pain Scale 7-10) Protocol Dextrose/Sodium Chloride 1,000 mls @ 100 mls/hr 03/11/23 20:15 03/11/23 21:59 D5ns IVCONT 100 mls/hr .Q10H PHILIPP Administration Piperacillin Sod/Tazobactam 50 mls @ 100 mls/hr 03/12/23 02:00 03/12/23 06:46 Sod 3.375 gm/ Sodium Chloride IV Infused Q6H PHILIPP Infusion Sodium Chloride 3 ml 03/12/23 00:00 03/12/23 00:34 0.9 % Sodium Chloride Flush 3 Ml Syringe IVFLUSH Not Given QSHIFT PHILIPP Discontinued Medications Generic Name Dose Route Start Last Admin Trade Name Freq PRN Reason Stop Dose Admin Sodium Chloride 1,000 mls @ 999 mls/hr 03/11/23 19:24 03/12/23 01:26 Ns IV 03/11/23 20:24 Infused .Q1H1M ONE Infusion Piperacillin Sod/Tazobactam 50 mls @ 100 mls/hr 03/11/23 19:44 03/11/23 21:15 Sod 3.375 gm/ Sodium Chloride IV 03/11/23 20:13 Infused ONCE ONE Infusion Piperacillin Sod/Tazobactam 50 mls @ 100 mls/hr 03/11/23 02:00 03/12/23 03:27 Sod 3.375 gm/ Sodium Chloride IV Not Given Q6H PHILIPP Morphine Sulfate 4 mg 03/11/23 19:24 03/11/23 20:26 Morphine Sulfate 4 Mg/Ml Cartridge IVPUSH 03/11/23 19:25 4 mg ONCE ONE Administration Protocol Ondansetron HCl 4 mg 03/11/23 19:24 03/11/23 20:26 Ondansetron Hcl 4 Mg/2 Ml Vial IVPUSH 03/11/23 19:25 4 mg ONCE ONE Administration Medical Decision Making Medical Decision Making [facility] Narrative: Patient with acute cholecystitis with gallstones case discussed with surgeon will admit patient for lap cholecystectomy in a.m. Differential Diagnosis Differential Diagnoses: The differential diagnosis associated with the presentation includes Acute cholecystitis/pancreatitis/gastritis Admission/Observation Consideration of admission/observation: Escalation of care including admission/observation considered Consult Healthcare Provider Management of the patient was discussed with: [employer] Solution Architect Lab Data [facility] Lab Attestation statement: I reviewed the patient's lab results. 03/11/23 17:07 03/11/23 17:07 Labs: Lab Results 03/11/23 03/11/23 03/11/23 Range/Units 17:07 19:23 19:54 WBC 16.4 H (4.8-10.8) X10*3/uL RBC 4.85 (4.20-5.50) X10*6/uL Hgb 14.3 (12.0-16.0) g/dl Hct 43.2 (37.0-47.0) % MCV 89.1 (80.0-98.0) fL MCH 29.5 (27.0-33.0) pg MCHC 33.1 (31.0-35.0) g/dl RDW 14.1 (11.0-16.0) % Plt Count 194 (160-400) X10*3/uL MPV 11.2 (9.4-12.3) fL Immature Gran % (Auto) 0.5 H (0.0-0.4) % Neut % (Auto) 82.6 H (45-73) % Lymph % (Auto) 9.0 L (20-40) % Cameron % (Auto) 7.3 (2-11) % Eos % (Auto) 0.2 (0-4) % Baso % (Auto) 0.4 (0-2) % Lymph # (Auto) 1.5 (1.2-4.9) X10*3/uL Cameron # (Auto) 1.2 (0.1-1.2) X10*3/uL Eos # (Auto) 0.0 (0.0-0.4) X10*3/uL Baso # (Auto) 0.1 (0.0-0.2) X10*3/uL Abs Immat Gran (auto) 0.08 H (0.00-0.03) X10*3/uL Absolute Neuts (auto) 13.5 H (2.0-8.3) x10*3/uL Absolute Nucleated RBC 0.000 (0.0-0.012) X10*3/uL Nucleated RBC % (auto) 0.0 (0.0-0.2) /100WBC PT 13.2 (11.1-13.3) SEC INR 1.1 (0.9-1.1) Sodium 140 (135-145) mmol/L Potassium 3.9 (3.3-5.1) mmol/L Chloride 104 (96-108) mmol/L Carbon Dioxide 29 (22-29) mmol/L Anion Gap 11 L (12-20) BUN 7 L (9-16) mg/dL Creatinine 0.67 (0.5-1.4) mg/dL Estim Creat Clear Calc 71.5 Estimated GFR > 60 Random Glucose 109 (60-115) mg/dL Lactic Acid 1.7 (0.5-2.0) mmol/L Calcium 10.0 (8.4-10.2) mg/dL Total Bilirubin 0.3 (0.0-1.0) mg/dL AST 21 (5-31) U/L ALT 11 (0-31) U/L Alkaline Phosphatase 96 (39-117) U/L Total Protein 7.3 (6.5-8.0) g/dL Albumin 4.3 (3.5-5.0) g/dL Lipase 16 (8-78) U/L Urine Color Yellow Urine Appearance Clear Urine pH 7.0 (5.0-9.0) Ur Specific [place] 1.015 (1.005-1.025) Urine Protein Negative (Neg-Trace) mg/dL Urine Glucose (UA) Negative (Negative) mg/dL Urine Ketones Negative (Negative) mg/dL Urine Blood Moderate (2+) H (Negative) Urine Nitrite Negative (Negative) Ur Leukocyte Esterase Negative (Negative) Urine RBC 11-20 H (0-2) /HPF Urine WBC 0-5 (0-5) /HPF Ur Squamous Epith Cells 0-2 (0-2) /HPF Urine Bacteria None Seen (None Seen) Hyaline Casts 0-2 (0-2) /LPF COVID-19 ([place]IEGO) Negative (Negative) COVID-19 Clin Com See Note Discharge Plan Discharge Clinical Impression: Acute calculous cholecystitis Patient Disposition: Admitted As Inpatient Interventions: Admission Worksheet (ED) Last Done: 03/12/23 07:59 Discharge Date/Time: 03/12/23 08:00
[2023-03-11 17:13] LABS: MANUAL DIFF FLAG NO
[2023-03-11 17:14] LABS: Basophils Absolute Auto 0.1 X10*3/uL (0.0-0.2); Basophils Percent Auto 0.4 % (0-2); Eosinophils Percent Auto 0.2 % (0-4); Hematocrit 43.2 % (37.0-47.0); Hemoglobin 14.3 g/dl (12.0-16.0); Imm Gran Abs Auto 0.08 X10*3/uL (0.00-0.03); Imm Gran Pct Auto 0.5 % (0.0-0.4); Lymphocytes Absolute Auto 1.5 X10*3/uL (1.2-4.9); Mean Corpuscular HGB Conc 33.1 g/dl (31.0-35.0); Mean Corpuscular Hemoglobin 29.5 pg (27.0-33.0); Mean Corpuscular Volume 89.1 fL (80.0-98.0); Mean Platelet Volume 11.2 fL (9.4-12.3); Monocytes Absolute Auto 1.2 X10*3/uL (0.1-1.2); Monocytes Percent Auto 7.3 % (2-11); Neutrophils Absolute Auto 13.5 x10*3/uL (2.0-8.3); Neutrophils Percent Auto 82.6 % (45-73); Platelet Count 194 X10*3/uL (160-400); Red Blood Count 4.85 X10*6/uL (4.20-5.50); Red Cell Distribution Width 14.1 % (11.0-16.0); White Blood Count 16.4 X10*3/uL (4.8-10.8)
[2023-03-11 17:29] LABS: Alanine Aminotransferase 11 U/L (0-31); Albumin Level 4.3 g/dL (3.5-5.0); Alkaline Phosphatase 96 U/L (39-117); Anion Gap 11 (12-20); Aspartate Amino Transferase 21 U/L (5-31); Bilirubin Total 0.3 mg/dL (0.0-1.0); Blood Urea Nitrogen 7 mg/dL (9-16); Carbon Dioxide 29 mmol/L (22-29); Chloride 104 mmol/L (96-108); Creatinine Clr Calc Pharmacy 71.5; Estimated Glomerular Filt Rate > 60; Glucose Random 109 mg/dL (60-115); Lipase 16 U/L (8-78); Potassium 3.9 mmol/L (3.3-5.1); Sodium 140 mmol/L (135-145); Total Protein 7.3 g/dL (6.5-8.0)
[2023-03-11 17:47] LABS: COVID-19 Test Negative (Negative); IDNOW Serial# 6674DD1D
--- NOTE | 2023-03-11 18:58 | PC.NURSE ---
This RN took over this assignment @ 3006
[2023-03-11 19:17] VITALS: BP 151/65; PULSE 62; RESP 16; O2SAT 99
--- NOTE | 2023-03-11 19:18 | PC.NURSE ---
Pt ca&ox4, no signs of distress. Pts daughter at bedside. UA requested. Pt reports 10/10 abdm pain that radiates to right side of back. Pt denies n/v at this time. Pt reports allergy to penicillin and a reaction to morphine. plan of care ongoing.
[2023-03-11 19:31] LABS: Appearance Urine Clear; Color Urine Yellow; Glucose Urine UA Negative (Negative); Leukocyte Esterase Urine Negative (Negative); Nitrite Urine Negative (Negative); Specific Gravity - Urine 1.015 (1.005-1.025); UMIC TRIGGER UACC YES; Urine Blood Moderate (2+) (Negative); Urine Ketones Negative (Negative); Urine Protein Negative (Neg-Trace)
--- NOTE | 2023-03-11 19:32 | PC.NURSE ---
Provider made aware of pts med allergy. Plan of care ongoing.
[2023-03-11 19:33] LABS: Bacteria Urine None Seen (None Seen); Hyaline Casts Urine 0-2 /LPF (0-2); Squamous Epithelial Cell Urine 0-2 /HPF (0-2); WBC Urine 0-5 /HPF (0-5)
[2023-03-11 20:26] VITALS: RESP 16
[2023-03-11] MEDS: Morphine Sulfate 4 MG/ML CARTRIDGE IVPUSH (20:26)
[2023-03-11] MEDS: ondansetron HCL 4 MG/2 ML VIAL IVPUSH (20:26)
[2023-03-11] MEDS: 0.9 % Sodium Chloride 1,000 ML 999 ML IV (20:27)
--- NOTE | 2023-03-11 20:40 | PC.NURSE ---
Provider Talat made aware of pts penicillin allergy. Pt reports hives to penicillin. Pt placed on monitor. Plan of care ongoing.
[2023-03-11] MEDS: Piperacillin Sodium/Tazobactam 3.375 GM in 0.9 % Sodium Chloride 50 ML IV (20:41)
[2023-03-11 21:11] LABS: Lactic Acid 1.7 mmol/L (0.5-2.0)
--- NOTE | 2023-03-11 21:24 | PC.NURSE ---
Pt ca&ox4, no signs of acute distress. Pt requesting to use the bathroom. Vitals stable. Plan of care ongoing.
[2023-03-11 21:26] VITALS: PULSE 69; RESP 15; O2SAT 99
--- NOTE | 2023-03-11 21:28 | PC.NURSE ---
This RN confirmed with provider Talat and dry house wheeler regarding lap leonard for tomorrow. Pt being placed on the list.
[2023-03-11 21:31] VITALS: BP 150/63; PULSE 61; RESP 19; TEMP 36.5; O2SAT 99
[2023-03-11] MEDS: Dextrose 5 % and 0.9 % NaCl 1,000 ML 100 ML IVCONT (21:59)
[2023-03-11 22:16] LABS: INTERNATIONAL NORM RATIO 1.1 (0.9-1.1); Prothrombin Time 13.2 SEC (11.1-13.3)
[2023-03-11 22:23] VITALS: RESP 22
[2023-03-11] MEDS: HYDROmorphone HCl 1 MG/ML SYRINGE 0.5 MG IVPUSH (22:23)
--- NOTE | 2023-03-11 22:37 | PC.NURSE ---
Pt reporting 10/10 abdm pain again. Pt medicated per aug. Plan of care ongoing.
[2023-03-12] VITALS (12 sets, daily range): BP systolic 99–158; BP diastolic 53–76; PULSE 60–76; RESP 16–26; TEMP 35.9–37.2; O2SAT 88–97
[2023-03-12] MEDS: Piperacillin Sodium/Tazobactam 3.375 GM in 0.9 % Sodium Chloride 50 ML IV ×3 (02:09→14:48)
--- NOTE | 2023-03-12 02:15 | PC.NURSE ---
Pt medicated per aug. Plan of care ongoing.
--- NOTE | 2023-03-12 03:42 | MHC.EDTECH ---
This tech assumed care of patient at 0300AM,Hourly rounds and vitals completed. call millan within reach
--- NOTE | 2023-03-12 06:26 | PC.NURSE ---
This RN attepted to give report. RN unavailable, said they would call back.
--- NOTE | 2023-03-12 07:46 | PC.NURSE ---
REPORT TO CHINA KOHLI
--- NOTE | 2023-03-12 08:10 | PM.HPGS ---
History of Present Illness History of Present Illness Date of Service: 03/12/23 Chief complaint: Acute GB Narrative: Ivana Guidry is a 57 year old female with PMH of hypercholesterolemia, GERD, migraines and generous anxiety disorder who presented with RUQ abd pain since yesterday morning. When she woke up, it was first mild. It has progressively worsened throughout the day. It is now sharp, stabbing and severe. The pain has been constant. It is associated with nausea without vomiting. She denies fever, chills, diarrhea, similar episodes of pain. Due to the severity of the pain, she came to the ED for evaluation. Work up included CBC, BMP, LFTs which was significant for a WBC count of 16.4. ABD US was performed which showed gallstones, mildly distended gallbladder with wall thickening and sonographic Nation's sign. CBD was mildly dilated measuring 0.8 cm. This morning, she reports continued pain. It has not improved at all. Review of Systems Constitutional: Constitutional: Denies chills and Denies fever(s) ENT: Denies dizziness Cardiovascular: Cardiovascular: Denies chest pain, Denies palpitations and Denies dyspnea Respiratory: Respiratory: Denies dyspnea Gastrointestinal: Gastrointestinal: Reports as per HPI and Denies change in bowel habits Genitourinary: Genitourinary: Denies hematuria and Denies dysuria Integumentary/Breasts: Skin/Breast: Denies rash and Denies jaundice Neurologic: Denies dizziness Endocrine: Endocrine: Denies palpitations PMFSH Past Medical History Medical History Annual physical exam Constipation Dyspareunia Dysplasia of cervix, low grade (MAGALY 1) Dysuria GERD (gastroesophageal reflux disease) Hypercholesterolemia Hyperkalemia Migraine Tobacco abuse Upper back pain UTI (urinary tract infection) Vitamin D deficiency Family History Family History (Updated 12/19/22 @ 10:51 by Renetta Monroe CMA) Father CVD (cardiovascular disease) Stroke FH: prostate cancer Mother Diabetes CVD (cardiovascular disease) Hypertension Sister Cancer Breast carcinoma Maternal Aunt Cancer Maternal Grandmother CVD (cardiovascular disease) Brother Substance abuse CVD (cardiovascular disease) Brother Colon cancer Surgical History Surgical History History of removal of ovarian cyst Social History Social History Housing: Apartment Alcohol intake: current Alcohol intake frequency: holidays/special occasions only Patient Tobacco Use Status: Current everyday Tobacco user Tobacco use type: Cigarette Cigarette Packs Per Day: 0.25 Cigarettes Per Day: 8 Smoked in Last 30 Days: Yes e-Cigarette/Vaping Use: Never Used Second Hand Smoke Exposure: Yes Use of substances other than those prescribed or required for medical reasons: Yes Substance Use Type: Crack/Cocaine Advance Directives: No Advance Directives Information Provided: No Nutrition Risks: No Nutritional Risk service: No Current occupational status: employed Sexual orientation: Straight/Heterosexual Gender identity: Female Cognitive needs: No Hearing needs: No Vision needs: Yes Meds Allergies Allergy/AdvReac Type Severity Reaction Status Date / Time morphine [MORPHINE] Allergy Intermediate VOMITING Verified 12/19/22 10:50 Penicillins [PENICILLINS] Allergy Intermediate RASH Verified 12/19/22 10:50 Active Medications: Current Medications Acetaminophen (Acetaminophen 325 Mg Tablet) 650 mg PO Q6H PRN PRN Reason: Pain, Mild (Pain Scale 1-3) Al Hydroxide/Mg Hydroxide (Magnesium Hydrox/Alum Hydrox 30 Ml Oral.Susp) 30 ml PO Q4H PRN PRN Reason: Heartburn/Nausea Hydromorphone HCl (Hydromorphone Hcl 1 Mg/Ml Syringe) 0.5 mg IVPUSH Q4H PRN; Protocol PRN Reason: Pain, Severe (Pain Scale 7-10) Last Admin: 03/11/23 22:23 Dose: 0.5 mg Dextrose/Sodium Chloride (D5ns) 1,000 mls @ 100 mls/hr IVCONT .Q10H [facility] Last Admin: 03/11/23 21:59 Dose: 100 mls/hr Piperacillin Sod/Tazobactam (Sod 3.375 gm/ Sodium Chloride) 50 mls @ 100 mls/hr IV Q6H [facility] Last Infusion: 03/12/23 06:46 Dose: Infused Magnesium Hydroxide (Milk Of Magnesia 30 Ml Oral.Susp) 30 ml PO DAILY PRN PRN Reason: Constipation Ondansetron HCl (Ondansetron Hcl 4 Mg/2 Ml Vial) 4 mg IVPUSH Q8H PRN PRN Reason: Nausea and Vomiting Sodium Chloride (0.9 % Sodium Chloride Flush 3 Ml Syringe) 3 ml IVFLUSH QSHIFT PHILIPP Last Admin: 03/12/23 00:34 Dose: Not Given Zolpidem Tartrate (Zolpidem Tartrate 5 Mg Tablet) 5 mg PO BEDTIME PRN PRN Reason: Insomnia Home Medications Medication Instructions Recorded Confirmed Last Taken Type docusate sodium 100 mg capsule 100 mg PO DAILY 05/06/20 12/19/22 Unknown History (Colace) Physical Exam Vital Signs: Vital Signs: Last Vital Signs Temp 98 F 03/12/23 08:00 Pulse 72 03/12/23 08:00 Resp 16 03/12/23 08:00 BP 153/62 H 03/12/23 08:00 Pulse Ox 93 03/12/23 08:00 O2 Del Method Room Air 03/12/23 08:00 BMI result Body Mass Index 21.9 Const: General: no acute distress, well developed, alert and other (uncomfortable appearing) Orientation/consciousness: patient oriented x3 Resp: Effort & Inspection: normal respiratory effort Cardio: Rate: regular rate GI: Inspection: Yes normal to inspection and No distended Palpation (GI): Soft to palpation, Tenderness to palpation present (GI) in the RUQ (marked ) and Nation's sign positive, no guarding and not rigid Percussion: Yes normal to percussion Skin: General skin exam: no rashes or lesions noted and no jaundice Neuro: General: patient oriented x3 and moves all extremities Extrem: General: Yes no clubbing, cyanosis or edema Results Results Labs: Short CBC 03/11/23 Range/Units 17:07 WBC 16.4 H (4.8-10.8) X10*3/uL Hgb 14.3 (12.0-16.0) g/dl Hct 43.2 (37.0-47.0) % Plt Count 194 (160-400) X10*3/uL BMP 03/11/23 17:07 Sodium 140 Potassium 3.9 Chloride 104 Carbon Dioxide 29 BUN 7 L Creatinine 0.67 Calcium 10.0 Liver Function 03/11/23 Range/Units 17:07 Total Bilirubin 0.3 (0.0-1.0) mg/dL AST 21 (5-31) U/L ALT 11 (0-31) U/L Alkaline Phosphatase 96 (39-117) U/L Albumin 4.3 (3.5-5.0) g/dL Urine 03/11/23 Range/Units 19:23 Urine Color Yellow Urine Appearance Clear Urine pH 7.0 (5.0-9.0) Ur Specific [place] 1.015 (1.005-1.025) Urine Protein Negative (Neg-Trace) mg/dL Urine Glucose (UA) Negative (Negative) mg/dL Abdominal ultrasound report/results: report reviewed and image reviewed Assessment and Plan (1) Acute calculous cholecystitis: Status: Acute Plan 57 year old female who presented with acute onset of RUQ abd pain with RUQ tenderness, positive nation sign and leukocytosis and gallstones, gallbladder wall thickening on ABD US. Clinical picture consistent with acute calculous cholecystitis. Patient was admitted to the surgical service for further treatment. It was recommended to proceed with laparoscopic cholecystectomy, possible open. Risks, benefits, alternatives of laparoscopic possible open cholecystectomy were reviewed with the patient including but not limited to bleeding, infection, numbness, pain, poor healing, injury to the liver, bowel or bile ducts, leak, retained stones and the patient wishes to proceed.? Arrangements will be made for this.?All questions were answered. She was made NPO, started on IVF, IV zosyn and PRN analgesics for pain control. Time Spent With Patient Time: Total time managing care of this patient today ____ minutes. Quality Stroke Does the patient have a stroke diagnosis?: No VTE Prior VTE?: No VTE Risk Level:: Surgical - low VTE Device Contraindication: Treatment Not Indicated VTE Drug Contraindication: Treatment Not Indicated Procedures Date of Service Date of Service: 03/12/23
--- NOTE | 2023-03-12 09:07 | MHC.CM.PN ---
PT REPORTS SHE LIVES ALONE AND IS INDEPENDENT WITH CARE SHE DENIES USE OF DME OR HOME SERVICES PT DOES EXPRESS CONCERN THAT SHE MAY LOSE HER HOME IN THE FUTURE BUT ENSURES IT IS SAFE FOR HER RETURN AT THIS TIME SHE WAS PROVIDED WITH [email or web address] [facility]/[address] [place] [address] RESOURCES SHE HAS A HCP ON FILE PCP: LILLIANA RAMÍREZ DCP: HOME NO SERVICES PT REPORTS SHE HAS A RIDE AT [place]
[2023-03-12] MEDS: HYDROmorphone HCl 1 MG/ML SYRINGE 0.5 MG IVPUSH (10:45)
--- NOTE | 2023-03-12 10:47 | PHA.MEDREC ---
Pharmacy Consult ? Medication Reconciliation Pharmacy has completed the medication reconciliation. Patient's family at bedside, helped with confirmation
--- NOTE | 2023-03-12 12:15 | P.CONAN_ITS ---
[facility] Active Problems Active Problems: All Active Problems (Updated 03/11/23 @ 20:02 by Joe Galloway MD) Acute calculous cholecystitis (Acute) Dysplasia of cervix, low grade (MAGALY 1) (Acute) Unsatisfactory cervical Papanicolaou smear (Acute) Encounter for repeat Pap smear due to previous insufficient cervical cells (Acute) Annual physical exam (Acute) Vitamin D deficiency (Acute) Vitamin B12 deficiency (Acute) Benign positional vertigo (Acute) Generalized anxiety disorder (Acute) Tobacco abuse (Acute) Hypercholesterolemia (Acute) GERD (gastroesophageal reflux disease) (Acute) Migraine (Acute) Past Medical History Medical History Annual physical exam Constipation Dyspareunia Dysplasia of cervix, low grade (MAGALY 1) Dysuria GERD (gastroesophageal reflux disease) Hypercholesterolemia Hyperkalemia Migraine Tobacco abuse Upper back pain UTI (urinary tract infection) Vitamin D deficiency Family History Family History (Updated 12/19/22 @ 10:51 by Renetta Monroe [facility]) Father CVD (cardiovascular disease) Stroke FH: prostate cancer Mother Diabetes CVD (cardiovascular disease) Hypertension Sister Cancer Breast carcinoma Maternal Aunt Cancer Maternal Grandmother CVD (cardiovascular disease) Brother Substance abuse CVD (cardiovascular disease) Brother Colon cancer Family history of problems with anesthesia: No Surgical History Surgical History History of removal of ovarian cyst History of Problems with Anesthesia: No Social History Social History Housing: Apartment Alcohol intake: current Alcohol intake frequency: holidays/special occasions only Patient Tobacco Use Status: Current everyday Tobacco user Tobacco use type: Cigarette Cigarette Packs Per Day: 0.25 Cigarettes Per Day: 8 Smoked in Last 30 Days: Yes e-Cigarette/Vaping Use: Never Used Second Hand Smoke Exposure: Yes Use of substances other than those prescribed or required for medical reasons: Yes Substance Use Type: Crack/Cocaine Advance Directives: No Advance Directives Information Provided: No Nutrition Risks: No Nutritional Risk service: No Current occupational status: employed Sexual orientation: Straight/Heterosexual Gender identity: Female Cognitive needs: No Hearing needs: No Vision needs: Yes Meds Allergies Allergy/AdvReac Type Severity Reaction Status Date / Time morphine [MORPHINE] Allergy Intermediate VOMITING Verified 12/19/22 10:50 Penicillins [PENICILLINS] Allergy Intermediate RASH Verified 12/19/22 10:50 Active Medications: Current Medications Acetaminophen (Acetaminophen 325 Mg Tablet) 650 mg PO Q6H PRN PRN Reason: Pain, Mild (Pain Scale 1-3) Al Hydroxide/Mg Hydroxide (Magnesium Hydrox/Alum Hydrox 30 Ml Oral.Susp) 30 ml PO Q4H PRN PRN Reason: Heartburn/Nausea Hydromorphone HCl (Hydromorphone Hcl 1 Mg/Ml Syringe) 0.5 mg IVPUSH Q4H PRN; Protocol PRN Reason: Pain, Severe (Pain Scale 7-10) Last Admin: 03/11/23 22:23 Dose: 0.5 mg Dextrose/Sodium Chloride (D5ns) 1,000 mls @ 100 mls/hr IVCONT .Q10H [facility] Last Infusion: 03/12/23 12:12 Dose: Infused Piperacillin Sod/Tazobactam (Sod 3.375 gm/ Sodium Chloride) 50 mls @ 100 mls/hr IV Q6H [facility] Last Infusion: 03/12/23 11:24 Dose: Infused Magnesium Hydroxide (Milk Of Magnesia 30 Ml Oral.Susp) 30 ml PO DAILY PRN PRN Reason: Constipation Ondansetron HCl (Ondansetron Hcl 4 Mg/2 Ml Vial) 4 mg IVPUSH Q8H PRN PRN Reason: Nausea and Vomiting Sodium Chloride (0.9 % Sodium Chloride Flush 3 Ml Syringe) 3 ml IVFLUSH QSHIFT [facility] Last Admin: 03/12/23 12:12 Dose: Not Given Zolpidem Tartrate (Zolpidem Tartrate 5 Mg Tablet) 5 mg PO BEDTIME PRN PRN Reason: Insomnia Home Medications Medication Instructions Recorded Confirmed Last Taken Type docusate sodium 100 mg capsule 100 mg PO DAILY 05/06/20 03/12/23 03/11/23 History (Colace) Exam Exam Date and Time: March 12, 2023 121 Height,Weight and Vital Signs: Height 5 ft 2 in Weight 54.431 kg Last Vital Signs Temp 98 F 03/12/23 08:00 Pulse 72 03/12/23 08:00 Resp 16 03/12/23 08:00 BP 153/62 H 03/12/23 08:00 Pulse Ox 93 03/12/23 08:00 O2 Del Method Room Air 03/12/23 08:00 Pertinent Lab Results Pertinent Lab Results: Laboratory Tests 03/11/23 03/11/23 03/11/23 17:07 19:23 19:54 WBC 16.4 H RBC 4.85 Hgb 14.3 Hct 43.2 MCV 89.1 MCH 29.5 MCHC 33.1 RDW 14.1 Plt Count 194 MPV 11.2 Immature Gran % (Auto) 0.5 H Neut % (Auto) 82.6 H Lymph % (Auto) 9.0 L Glenn % (Auto) 7.3 Eos % (Auto) 0.2 Baso % (Auto) 0.4 Lymph # (Auto) 1.5 Glenn # (Auto) 1.2 Eos # (Auto) 0.0 Baso # (Auto) 0.1 Abs Immat Gran (auto) 0.08 H Absolute Neuts (auto) 13.5 H Absolute Nucleated RBC 0.000 Nucleated RBC % (auto) 0.0 PT 13.2 INR 1.1 Sodium 140 Potassium 3.9 Chloride 104 Carbon Dioxide 29 Anion Gap 11 L BUN 7 L Creatinine 0.67 Estim Creat Clear Calc 71.5 Estimated GFR > 60 Random Glucose 109 Lactic Acid 1.7 Calcium 10.0 Total Bilirubin 0.3 AST 21 ALT 11 Alkaline Phosphatase 96 Total Protein 7.3 Albumin 4.3 Lipase 16 Urine Color Yellow Urine Appearance Clear Urine pH 7.0 Ur Specific Austin 1.015 Urine Protein Negative Urine Glucose (UA) Negative Urine Ketones Negative Urine Blood Moderate (2+) H Urine Nitrite Negative Ur Leukocyte Esterase Negative Urine RBC 11-20 H Urine WBC 0-5 Ur Squamous Epith Cells 0-2 Urine Bacteria None Seen Hyaline Casts 0-2 COVID-19 (DIEGO) Negative COVID-19 Clin Com See Note Airway Mallampati Class: II TM Dist: >3cm Neck ROM: Full Denture: Upper and Lower Heart: rrr Lungs: cta Assessment and Plan Assessment Anesthesia Assessment: Anesthesia Plan Discussed and Chart Reviewed Final Anesthetic Review Family History of Problems with Anesthesia: No History of Problems with Anesthesia: No NPO: Yes ASA Class: II Final Preanesthetic Review: No Changes in Pt Med Stat, Meds/Allgs Chart Reviewed and Consent Obtained/Reviewed Patient Risk: Intermediate Procedure Risk: Intermediate Anesthetic Plan Anesthetic Plan: GA Disposition: Standard PACU
--- NOTE | 2023-03-12 14:07 | P.OP_ITS ---
Operative Note Operative Note Date of Service: 03/12/23 Narrative: Preoperative diagnosis: [] Acute cholecystitis Postop diagnosis: [] Acute phlegmonous cholecystitis Procedure [] laparoscopic cholecystectomy Surgeon: [] Driss [employer] Accountant: [] Walter Type of Anesthesia: [] General Indication for surgery: [] Markedly edematous inflamed phlegmonous gallbladder. Significantly intrahepatic gallbladder. Dense omental adhesions to the gallbladder. Findings: [] Patient brought to the operating room, placed on operative table in supine position, after adequate level of general anesthesia was induced, the patient's abdomen was prepped and draped in usual sterile fashion. Using a supraumbilical curvilinear incision, Beatty technique was used to insufflate the abdominal cavity to 15 mm of CO2. Upper midline and right subcostal ports were placed under direct laparoscopic view, and the patient was placed in reverse Trendelenburg position, tilted to the left. Omental adhesions were swept off the gallbladder. The markedly turgid, phlegmonous gallbladder was decompressed with an aspirating device and then grasped with laparoscopic graspers, and retracted superiorly and laterally. Hilum was approached where the cystic artery cystic duct and common bile duct were all identified. Cystic artery and cystic duct were circumferentially dissected out, traced directly into the gallbladder, and critical view obtained. Each was clipped proximally x2, distally x1, and transected. Gallbladder which was very intrahepatic was then cauterized from the gallbladder fossa using Bovie. Specimen was placed in Endo-Catch bag, a retrieved through the umbilical port. Abdominal cavity was copiously irrigated, and secured hemostasis. All ports were removed under direct laparoscopic view. Wounds were closed in the following manner; umbilical wound has fascia reapproximated using interrupted 0 Vicryl sutures. Skin wounds were closed using subcuticular 4-0 Vicryl sutures followed by Steri-Strips and sterile dressings. Wounds were infiltrated 0.5% Marcaine at completion. Sponge, needle, and instrument counts reported correct. Patient tolerated procedure well and emerged anesthesia stable condition. EBL minimal
[2023-03-12] MEDS: Dextrose 5 % and 0.9 % NaCl 1,000 ML 100 ML IVCONT ×2 (14:48→17:46)
[2023-03-12] MEDS: Ketorolac Tromethamine 15 MG/ML VIAL IVPUSH (19:58)
[2023-03-12] MEDS: Propranolol HCL 10 MG TABLET PO (19:59)
[2023-03-12] MEDS: oxyCODONE HCl Immed Release 5 MG TABLET 10 MG PO (19:59)
[2023-03-12] MEDS: Zolpidem Tartrate 5 MG TABLET PO (19:59)
[2023-03-12] MEDS: DULoxetine HCl 20 MG CAPSULE.DR PO (19:59)
[2023-03-12] MEDS: 0.9 % Sodium Chloride Flush 3 ML SYRINGE IVFLUSH (20:00)
[2023-03-13 04:00] VITALS: BP 106/50; PULSE 60; RESP 16; TEMP 36.4; O2SAT 95
[2023-03-13] MEDS: Dextrose 5 % and 0.9 % NaCl 1,000 ML 100 ML IVCONT (04:09)
[2023-03-13] MEDS: Ketorolac Tromethamine 15 MG/ML VIAL IVPUSH (04:13)
[2023-03-13] MEDS: Omeprazole 20 MG CAPSULE.DR PO (05:17)
[2023-03-13 06:55] VITALS: BP 112/54; PULSE 64; RESP 16; TEMP 36.1; O2SAT 97
[2023-03-13] MEDS: Propranolol HCL 10 MG TABLET PO (08:43)
[2023-03-13] MEDS: Cyanocobalamin (Vitamin B-12) 1,000 MCG TABLET 1000 MCG PO (08:43)
[2023-03-13] MEDS: Cholecalciferol (Vitamin D3) 25 MCG TABLET 50 MCG PO (08:43)
[2023-03-13] MEDS: 0.9 % Sodium Chloride Flush 3 ML SYRINGE IVFLUSH (08:43)
[2023-03-13] MEDS: Cyproheptadine HCl 4 MG TABLET PO (08:43)
[2023-03-13] MEDS: Docusate Sodium 100 MG CAPSULE PO (08:43)
[2023-03-13] MEDS: oxyCODONE HCl Immed Release 5 MG TABLET 10 MG PO (08:46)
--- NOTE | 2023-03-13 08:46 | P.PNGS_ITS ---
Subjective Subjective Date of Service: 03/13/23 Interval history: Feels better, mild incisional pain. Tolerating solid diet. Has been OOB to bathroom. Wants to go home. Physical Exam 2 Vital Signs: Vital Signs: Last Vital Signs Temp 97 F 03/13/23 06:55 Pulse 64 03/13/23 06:55 Resp 16 03/13/23 06:55 BP 112/54 L 03/13/23 06:55 Pulse Ox 97 03/13/23 06:55 O2 Del Method Nasal Cannula 03/13/23 06:55 O2 Flow Rate 2 03/13/23 06:55 BMI result Body Mass Index 21.9 Const: General: comfortable, no acute distress and alert O rientation/consciousness: patient oriented x3 Resp: Effort & Inspection: normal respiratory effort GI: Inspection: No distended and Yes incision (dressings c/d/i) Palpation (GI): Soft to palpation, Tenderness to palpation present (GI) (mild incisional), no guarding and not rigid Skin: General skin exam: no rashes or lesions noted Neuro: General: patient oriented x3 and moves all extremities Objective Data Active Medications Acetaminophen (Acetaminophen 325 Mg Tablet) 650 mg PO Q6H PRN PRN Reason: Pain, Mild (Pain Scale 1-3) Al Hydroxide/Mg Hydroxide (Magnesium Hydrox/Alum Hydrox 30 Ml Oral.Susp) 30 ml PO Q4H PRN PRN Reason: Heartburn/Nausea Cyanocobalamin (Cyanocobalamin (Vitamin B-12) 1,000 Mcg Tablet) 1,000 mcg PO DAILY [facility] Cyproheptadine HCl (Cyproheptadine Hcl 4 Mg Tablet) 4 mg PO DAILY [facility] Docusate Sodium (Docusate Sodium 100 Mg Capsule) 100 mg PO DAILY [facility] Duloxetine HCl (Duloxetine Hcl 20 Mg Capsule.Dr) 20 mg PO BEDTIME PHILIPP Last Admin: 03/12/23 19:59 Dose: 20 mg Documented By: TIFFANIE Hydromorphone HCl (Hydromorphone Hcl 1 Mg/Ml Syringe) 0.5 mg IVPUSH Q4H PRN; Protocol PRN Reason: Pain, Severe (Pain Scale 7-10) Last Admin: 03/12/23 10:45 Dose: 0.5 mg Documented By: WANG Dextrose/Sodium Chloride (D5ns) 1,000 mls @ 100 mls/hr IVCONT .Q10H [facility] Last Admin: 03/13/23 04:09 Dose: 100 mls/hr Documented By: TIFFANIE Ketorolac Tromethamine (Ketorolac Tromethamine 15 Mg/Ml Vial) 15 mg IVPUSH Q6H PRN PRN Reason: Pain, Mild (Pain Scale 1-3) Last Admin: 03/13/23 04:13 Dose: 15 mg Documented By: TIFFANIE Magnesium Hydroxide (Milk Of Magnesia 30 Ml Oral.Susp) 30 ml PO DAILY PRN PRN Reason: Constipation Non-Formulary Medication (Rizatriptan) 10 mg PO .QD PRN PRN Reason: migraine headache Omeprazole (Omeprazole 20 Mg Capsule.Dr) 20 mg PO DAILY@0630 [facility] Last Admin: 03/13/23 05:17 Dose: 20 mg Documented By: TIFFANIE Ondansetron HCl (Ondansetron Hcl 4 Mg/2 Ml Vial) 4 mg IVPUSH Q8H PRN PRN Reason: Nausea and Vomiting Oxycodone HCl (Oxycodone Hcl Immed Release 5 Mg Tablet) 5 mg PO Q4H PRN PRN Reason: Pain, Moderate(Pain Scale 4-6) Oxycodone HCl (Oxycodone Hcl Immed Release 5 Mg Tablet) 10 mg PO Q4H PRN PRN Reason: Pain, Severe (Pain Scale 7-10) Last Admin: 03/12/23 19:59 Dose: 10 mg Documented By: TIFFANIE Propranolol HCl (Propranolol Hcl 10 Mg Tablet) 10 mg PO BID [facility]; Protocol Last Admin: 03/12/23 19:59 Dose: 10 mg Documented By: TIFFANIE Sodium Chloride (0.9 % Sodium Chloride Flush 3 Ml Syringe) [facility] Last Admin: 03/12/23 20:00 Dose: 3 ml Documented By: TIFFANIE Vitamin D (Cholecalciferol (Vitamin D3) 25 Mcg Tablet) 50 mcg PO DAILY [facility] Zolpidem Tartrate (Zolpidem Tartrate 5 Mg Tablet) 5 mg PO BEDTIME PRN PRN Reason: Insomnia Last Admin: 03/12/23 19:59 Dose: 5 mg Documented By: TIFFANIE Labs 03/11/23 17:07 03/11/23 17:07 Microbiology Microbiology Results: Microbiology 03/11/23 19:54 Blood Culture - Preliminary Blood - Venous No growth after 24 hours. 03/11/23 19:54 Blood Culture - Preliminary Blood - Venous No growth after 24 hours. Procedures Date of Service Date of Service: 03/13/23 Progress Note: A&P Assessment and plan (1) Acute calculous cholecystitis: Status: Acute (2) S/P laparoscopic cholecystectomy: Status: Acute Plan 57 year old female admitted with acute cholecystitis now POD #1 s/p lap CCY. Doing well post op, tolerating diet. VSS. Abd with appropriate post op tenderness. Feels ready for dc to home. Stable for dc to home today, f/u in 1 week in office. Time Spent With Patient Time: Total time managing care of this patient today ____ minutes. Quality Stroke Does the patient have a stroke diagnosis?: No VTE Prior VTE?: No VTE Risk Level:: Surgical - low VTE Device Contraindication: Treatment Not Indicated VTE Drug Contraindication: Treatment Not Indicated
--- NOTE | 2023-03-13 09:47 | MHC.CM.PN ---
Patient is discharged to home today. She has arranged for private transport home.
--- NOTE | 2023-03-13 11:06 | PM.DS ---
DS: Providers Provider Date of Service: 03/13/23 Date of admission: 03/11/23 20:10 Primary care physician: Barbara Bledsoe MD Attending physician on admission: Jeremy Naqvi Attending physician on discharge: Jeremy Naqvi DS: Diagnosis Discharge Diagnosis (1) Acute calculous cholecystitis: Status: Acute (2) S/P laparoscopic cholecystectomy: Status: Acute DS: Summary Hospital Course Hospital Course: HPI AT ADMISSION: Ivana Guidry is a 57 year old female with PMH of hypercholesterolemia, GERD, migraines and generous anxiety disorder who presented with RUQ abd pain since yesterday morning. When she woke up, it was first mild. It has progressively worsened throughout the day. It is now sharp, stabbing and severe. The pain has been constant. It is associated with nausea without vomiting. She denies fever, chills, diarrhea, similar episodes of pain. Due to the severity of the pain, she came to the ED for evaluation. Work up included CBC, BMP, LFTs which was significant for a WBC count of 16.4. ABD US was performed which showed gallstones, mildly distended gallbladder with wall thickening and sonographic Nation's sign. CBD was mildly dilated measuring 0.8 cm. This morning, she reports continued pain. It has not improved at all. HOSPITAL COURSE: She was admitted to the hospital for further treatment of the acute cholecystitis. On 03/12/23, a laparoscopic cholecystectomy was performed by Dr. Naqvi without complication. She had an uncomplicated recovery course. She felt well on POD #1 and was tolerating a solid diet without nausea or vomiting. Her pain was well controlled. She was ambulating without difficulty. Her abdomen was benign with appropriate post op tenderness and intact dressings. She felt ready for discharge. She was discharged to home on 03/13/23 in stable condition. She is to follow up in the office in 1 week. Status at Discharge Functional status at discharge: independent ambulation Overall status at discharge: patient is progressing back to baseline Time Spent with Patient Time attestation: Total time managing care of this patient today ____ minutes. Discharge coordination time: Less than 30 minutes Quality: Safe Use of Opioids Does Pt have an Active Cancer Diagnosis on the Problem List?: No Quality: Stroke Does the patient have a stroke diagnosis?: No Physical Exam Vital Signs: Vital Signs: Last Vital Signs Temp 97 F 03/13/23 06:55 Pulse 64 03/13/23 06:55 Resp 16 03/13/23 06:55 BP 112/54 L 03/13/23 06:55 Pulse Ox 97 03/13/23 06:55 O2 Del Method Nasal Cannula 03/13/23 06:55 O2 Flow Rate 2 03/13/23 06:55 BMI result Body Mass Index 21.9 Const: General: comfortable, no acute distress and alert Orientation/consciousness: patient oriented x3 Resp: Effort & Inspection: normal respiratory effort GI: Inspection: No distended and Yes incision (dressings intact) Palpation (GI): Soft to palpation, Tenderness to palpation present (GI) (mild incisional), no guarding and not rigid Skin: General skin exam: no rashes or lesions noted Neuro: General: patient oriented x3 and moves all extremities DS: Data Data Completed and Pending Pending studies at discharge: Pending at discharge 03/12/23 13:37 Surgical [PTH] Routine Labs on day of discharge: Preliminary micro results at discharge 03/11/23 19:54 Blood Culture - Preliminary Blood - Venous No growth after 24 hours. 03/11/23 19:54 Blood Culture - Preliminary Blood - Venous No growth after 24 hours. Discharge Plan Discharge Anticipated Discharge Date/Time: 03/13/23 14:00 Patient Disposition: Home, Self-Care Discharge Diagnosis: acute cholecystitis, s/p laparoscopic cholecystectomy Referrals: Rakan,Barbara Romeo MD [Primary Care Provider] - 1 Week Jeremy Naqvi MD [Physician] - 1 Week Discharge Medications: New oxycodone 5 mg tablet 5 mg PO Q4H PRN (Reason: pain (scale score 7-10)) Qty: 24 0RF Rx Instructions: Partial Fill upon patient request. Continued cyproheptadine 4 mg tablet 4 mg PO .qd 30 Days Qty: 30 2RF rizatriptan 10 mg tablet 10 mg PO .QD PRN (Reason: migraine headache) 30 Days Qty: 14 11RF Rx Instructions: do not exceed 3 doses per 24 hrs docusate sodium [Colace] 100 mg capsule 100 mg PO DAILY naproxen [Naprosyn] 500 mg tablet 500 mg PO BID PRN (Reason: pain) Qty: 20 0RF cyanocobalamin (vitamin B-12) 1,000 mcg capsule 1,000 mcg PO DAILY Qty: 30 3RF cholecalciferol (vitamin D3) 50 mcg (2,000 unit) capsule 50 mcg PO DAILY 90 Days Qty: 90 3RF duloxetine 20 mg capsule,delayed release(DR/EC) 20 mg PO BEDTIME 90 Days Qty: 90 2RF omeprazole 20 mg capsule,delayed release(DR/EC) 20 mg PO DAILY 90 Days Qty: 90 1RF propranolol 10 mg tablet 10 mg PO BID Qty: 60 11RF Discharge Orders: Discharge Order (Routine); Ordered 03/13/23 Ordered By: Vicky Watson Diet: Low fat, low cholesterol Activity on Discharge: No heavy lifting Stand Alone Forms: Patient Portal Discharge page, Work/School Release Activity Restrictions/Additional Instructions: Apply an ice pack for short intervals (20 minutes on, followed by at least 20 minutes off) for the first 2 days. Do not apply heat. Do not use creams, lotions, or topical antibiotics. These can cause infection or allergic reaction. Ok to shower 48 hours after your surgery. Remove dressings in 2 days and replace as needed. You have steri strips (small white cloth strips) covering your incision- these will fall off ~1 week. Follow up in office with Dr. Naqvi in 1 week. ([phone]) No heavy lifting (>10lbs) or strenuous activity! Call Your Doctor If: -Your temperature exceeds 101.5? F -You experience excessive pain or swelling -You have an unexpected reaction to medication -You have excessive bleeding -You experience continued vomiting/nausea -Your incision begins to separate -Your incision shows signs of infection such as increased redness, swelling, excessive pain, drainage (light blood or clear fluid is normal) or heat Care Plan Goals: Return to baseline health and resume normal activities following recovery period. Health Concerns: acute cholecystitis s/p laparoscopic cholecystectomy Plan of Treatment: F/u in office in 1 week Assessment: Doing well post op
--- NOTE | 2023-03-13 11:53 | HO.POSTANES ---
Post Anesthesia Evaluation Post Anesthesia Evaluation Date of Service: 03/13/23 Vital Signs: Vital Signs Temp Pulse Resp BP Pulse Ox O2 Del Method O2 Flow Rate 03/13/23 06:55 97 F 64 16 112/54 L 97 Nasal Cannula 2 03/13/23 04:00 97.5 F 60 16 106/50 L 95 Nasal Cannula 2.5 Anesthesia: General Endotracheal-GETA Mental Status: Awake Pain Control: Satisfactory Nausea/Vomiting: None Hydration: Adequate Anesthesia-Related Issues: No Anes. Related Issues
== END 2023-03-13 11:41 | disposition home or self-care (01) | DRG 263 ==
LOC: HO.ED 20:02 → HO.EDOVER 20:17 → HO.S3 03-12 05:34
PROVIDERS: Physician Assistant; Admitting Provider Surgery; Emergency Provider Internal Medicine; PCP Internal Medicine; Visit Provider Surgery
PROC: 0FT44ZZ Resection of Gallbladder, Percutaneous Endoscopic Approach (ICD-10-PCS; CPT 47562; principal; 2023-03-12 12:30)
DX: K80.00 Calculus of gallbladder with acute cholecystitis without obstruction (principal); E78.00 Pure hypercholesterolemia, unspecified; F17.210 Nicotine dependence, cigarettes, uncomplicated; K21.9 Gastro-esophageal reflux disease without esophagitis; K82.8 Other specified diseases of gallbladder; F41.1 Generalized anxiety disorder; Z71.6 Tobacco abuse counseling; Z20.822 Contact with and (suspected) exposure to COVID-19; Z79.899 Other long term (current) drug therapy
CPT/HCPCS: 47562; 36415; 76705; 80053; 81001; 83605; 83690; 85025; 85610; 87040; 87635; 88304; 99285; J1100; J1170; J1885; J2250; J2270; J2371; J2405; J2543; J2795; J3010

== ENCOUNTER → 2023-03-11 20:10 | Outpatient (BNV) | payer OTHER, SELFPAY | PROVIDERS: Admitting Provider Surgery; Emergency Provider Internal Medicine; PCP Internal Medicine; Visit Provider Physician Assistant Surgical | DX: K80.00 Calculus of gallbladder with acute cholecystitis without obstruction (principal) | CPT/HCPCS: 47562; 99024; 99222 ==

== ENCOUNTER 2023-03-20 09:35 | Outpatient (AMB) | payer OTHER, SELFPAY ==
[2023-03-20 09:52] VITALS: BP 125/61; PULSE 82
--- NOTE | 2023-03-20 09:52 | MHC.OFFVIS ---
Intake Vital Signs 03/20/23 09:52 Weight 110 lb BP 125/61 Blood Pressure Location Rt brachial Position Sitting Pulse 82 Intake Visit Reasons: s/p lap leonard Intake Note: Patient here s/p lap leonard. C/o pain. Unable to sleep due to pain and discomfort. At times feels nauseous. Reports incisions healing well. Denies bleeding or oozing. Concern rxn to adhesive bandage on abd. 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 Aside from incisional discomfort she is doing well. She has time diet. Having normal bowel habits. She has minimal incisional discomfort. She is increasing her activity [facility] Medical History Dysplasia of cervix, low grade (MAGALY 1) Upper back pain Annual physical exam Hyperkalemia Dyspareunia UTI (urinary tract infection) Dysuria Vitamin D deficiency Constipation Tobacco abuse Hypercholesterolemia GERD (gastroesophageal reflux disease) Migraine Surgical History History of removal of ovarian cyst Family History Father CVD (cardiovascular disease) Stroke FH: prostate cancer Mother Diabetes CVD (cardiovascular disease) Hypertension Sister Cancer Breast carcinoma Maternal Aunt Cancer Maternal Grandmother CVD (cardiovascular disease) Brother Substance abuse CVD (cardiovascular disease) Brother Colon cancer Social History Household Members: Family Housing: House Do you presently have visiting nurse or other home services: No Alcohol intake: current Alcohol intake frequency: a few times a week Patient Tobacco Use Status: Never used Tobacco Tobacco use type: Cigarette Cigarette Packs Per Day: 0.25 Cigarettes Per Day: 8 e-Cigarette/Vaping Use: Never Used Second Hand Smoke Exposure: No Substance Use Type: Crack/Cocaine service: No Current occupational status: employed Sexual orientation: Straight/Heterosexual Gender identity: Female Cognitive needs: No Hearing needs: No Vision needs: Yes Physical Exam Vital Signs: Last Vital Signs Pulse 82 03/20/23 09:52 BP 125/61 03/20/23 09:52 Eyes Other: Anicteric GI Other: Abdomen soft, benign. All wounds clean dry and intact. Assessment & Plan Assessment & Plan (1) S/P laparoscopic cholecystectomy: Code(s): Z90.49 - Acquired absence of other specified parts of digestive tract (2) Acute calculous cholecystitis: Code(s): K80.00 - Calculus of gallbladder with acute cholecystitis without obstruction Plan Patient has been given local instructions. She will be given 2 weeks off work and then will recommence with 2 weeks light duty. Renewal of pain meds also provided. All questions answered. Patient will follow-up p.r.n.. Medications: New hydrocodone-acetaminophen 5-325 mg Partial Fill upon patient request. 1 tab PO Q4-6H PRN 30 tabs 0RF pain Coding Level of Care Code Global (45864) Diagnoses S/P laparoscopic cholecystectomy Z90.49 Acute calculous cholecystitis K80.00
== END 2023-03-20 10:13 | disposition home or self-care (01) ==
PROVIDERS: PCP Internal Medicine; Visit Provider Surgery
DX: Z90.49 Acquired absence of other specified parts of digestive tract (principal); K80.00 Calculus of gallbladder with acute cholecystitis without obstruction
CPT/HCPCS: 99024

== ENCOUNTER → 2023-03-20 09:35 | Outpatient (BNVA) | payer OTHER, SELFPAY | PROVIDERS: PCP Internal Medicine; Visit Provider Surgery ==

== ENCOUNTER 2023-04-09 09:24 | Outpatient (AMB) | payer OTHER, SELFPAY ==
[2023-04-09 09:28] VITALS: BP 126/64; BMI 20.1
--- NOTE | 2023-04-09 09:28 | A.OFFPC_ITS ---
Vital Signs 04/09/23 09:28 Height 5 ft 2 in Weight 110 lb 0.2 oz BMI 20.1 BP 126/64 Blood Pressure Location Lt brachial Position Sitting Pulse Source Pulse Oximeter Temp Source Skin Oxygen Delivery Method Room Air Intake Visit Reasons: LAINA smoker Research/Program Director Required: No Allergies morphine [MORPHINE] Allergy (Intermediate, Verified 04/09/23 09:31) VOMITING Penicillins [PENICILLINS] Allergy (Intermediate, Verified 04/09/23 09:31) RASH Medication List - Last Reconciled 04/09/23 by Barbara Bledsoe MD cholecalciferol (vitamin D3) 50 mcg PO DAILY 90 days cholestyramine-aspartame 4 gram (Prevalite) 4 grams PO BID cyanocobalamin (vitamin B-12) 1,000 mcg PO DAILY cyproheptadine 4 mg PO .qd 30 days docusate sodium (Colace) 100 mg PO DAILY duloxetine 20 mg PO BEDTIME 90 days hydrocodone-acetaminophen 5-325 mg 1 tab PO Q4-6H PRN naproxen (Naprosyn) 500 mg PO BID PRN omeprazole 20 mg PO DAILY 90 days propranolol 10 mg PO BID rizatriptan 10 mg PO .QD PRN 30 days Tobacco use date assessed: 04/09/23 Dental Screening Dental Screen Date: 04/09/23 Did you have a dental visit in the last 12 months?: No Did you have a dental problem in the last 6 months where you did not have access to dental care?: No [facility] Medical History Dysplasia of cervix, low grade (MAGALY 1) Upper back pain Annual physical exam Hyperkalemia Dyspareunia UTI (urinary tract infection) Dysuria Vitamin D deficiency Constipation Tobacco abuse Hypercholesterolemia GERD (gastroesophageal reflux disease) Migraine Surgical History History of removal of ovarian cyst Family History Father CVD (cardiovascular disease) Stroke FH: prostate cancer Mother Diabetes CVD (cardiovascular disease) Hypertension Sister Cancer Breast carcinoma Maternal Aunt Cancer Maternal Grandmother CVD (cardiovascular disease) Brother Substance abuse CVD (cardiovascular disease) Brother Colon cancer Social History Household Members: Family Housing: House Do you presently have visiting nurse or other home services: No Alcohol intake: current Alcohol intake frequency: a few times a week Patient Tobacco Use Status: Never used Tobacco Tobacco use type: Cigarette Cigarette Packs Per Day: 0.25 Cigarettes Per Day: 8 e-Cigarette/Vaping Use: Never Used Second Hand Smoke Exposure: No Substance Use Type: Crack/Cocaine service: No Current occupational status: employed Sexual orientation: Straight/Heterosexual Gender identity: Female Cognitive needs: No Hearing needs: No Vision needs: Yes Questionnaire Thrive Questionnaire Date Thrive assessed: 03/12/23 AUDIT C Alcohol Use Questionnaire (AUDIT-C) 1. How often do you have a drink containing alcohol?: Never 3. How often do you have six or more drinks on one occasion?: Never Total Score: 0 Score Reviewed/Action Taken: No LAINA-7 AMB Questionnaire LAINA-7 Date LAINA - 7 assessed: 07/31/22 Source: Developed by Drs. Marv Cantrell, Divine Melgoza, Thai Moore and colleagues, with an educational mariann from [employer]. Physical exam (Primary Care) Vital Signs: Last Vital Signs BP 126/64 04/09/23 09:28 Oxygen Delivery Method Room Air 04/09/23 09:28 BMI result Body Mass Index 20.1 Tobacco/Smoking Status: Tobacco use Status Tobacco use date assessed 04/09/23 04/09/23 09:33 Patient Tobacco Use Status Never used Tobacco 04/09/23 09:33 Tobacco use type Cigarette 04/09/23 09:33 e-Cigarette/Vaping Use Never Used 04/09/23 09:33 Thrive Assessment: Date of Thrive Assessment Date Thrive assessed 03/12/23 04/09/23 09:33 Office Procedures Flu Questionnaire Does the patient have a severe egg allergy?: No Does the patient have severe life threatening allergies?: No Does the patient have a fever or illness today?: No Has the patient ever had Guillain-Kirby Syndrome?: No Has the patient ever had any past reaction to a flu shot?: No Immunizations flu vacc [id number] 6mos up(PF) 60 mcg(15 mcgx4)/0.5 mL IM syringe Performing Provider: Barbara Bledsoe MD Performing Location: [facility] Administered by: ANGELINA Barrera on 04/09/23 09:42 Dose Route Admin Location Dispensed Lot Number Expiration Date NDC Hot Plate Ply[employer] Press Offbearer 0.5 mL IM Left Deltoid 0.5 mL [id number] 12/23/23 [id number] [employer] VIS Given Date VIS Provided VIS Publication Date 04/09/23 Single Vaccine 21 Eligibility Eligibility Date Funding Source Not [facility] Eligible 04/09/23 Private Assessment and Plan Assessment & Plan (1) S/P laparoscopic cholecystectomy: Comment: 02/2023 Dr. Naqvi Code(s): Z90.49 - Acquired absence of other specified parts of digestive tract Plan: Patient follows up with the surgeon. Discussed about low-fat diet (2) Tobacco abuse: Code(s): Z72.0 - Tobacco use Plan: Strongly advised to stop smoking! (3) Hypercholesterolemia: Code(s): E78.00 - Pure hypercholesterolemia, unspecified Plan: Avoid fried foods, chicken skin, eggs, butter margarine, pastries and meat. Be it pork or beef they have a lot of cholesterol LDL goal of less than 130 and triglyceride of less than 150 (4) GERD (gastroesophageal reflux disease): Code(s): K21.9 - Gastro-esophageal reflux disease without esophagitis Qualifiers: Esophagitis presence: without esophagitis Qualified Code(s): K21.9 - Gastro-esophageal reflux disease without esophagitis Plan: Avoid the foods that causes that usually spicy foods, tomato products, juices, coffee, soda and foods that your sensitive to. After eating do not lie down, allow 3-4 hours before in lie down. And keep the head of bed above 30 degrees to avoid the acid from going up. Orders: Orders Influenza [id number] Immunization Today Z23 - Encounter for immunization Medications: New cholestyramine-aspartame 4 gram (Prevalite) administer w/meal; avoid other meds within 1hr before or 4-6hr after dose 4 grams PO BID 231 grams 3RF Z90.49 - Acquired absence of other specified parts of digestive tract Coding Level of Care Code Est Pt Level 4 (73076) Diagnoses S/P laparoscopic cholecystectomy Z90.49 Tobacco abuse Z72.0 Hypercholesterolemia E78.00 Gastroesophageal reflux disease without esophagitis K21.9 Esophagitis presence: without esophagitis
== END 2023-04-09 10:11 | disposition home or self-care (01) ==
PROVIDERS: PCP Internal Medicine; Visit Provider Internal Medicine
DX: K21.9 Gastro-esophageal reflux disease without esophagitis (principal); Z90.49 Acquired absence of other specified parts of digestive tract; Z72.0 Tobacco use; E78.00 Pure hypercholesterolemia, unspecified; Z23 Encounter for immunization; Z11.1 Encounter for screening for respiratory tuberculosis
CPT/HCPCS: 86580; 90471; 90686; 99214

== ENCOUNTER 2023-07-25 09:27 | Outpatient (AMB) | payer OTHER, SELFPAY ==
[2023-07-25 09:27] VITALS: BP 122/64; PULSE 78; O2SAT 98; BMI 20.5
--- NOTE | 2023-07-25 09:27 | MHC.PC.OV ---
Vital Signs 07/25/23 09:27 Height 5 ft 2 in Weight 112 lb BMI 20.5 BP 122/64 Blood Pressure Location Lt brachial Position Sitting Pulse 78 Pulse Source Pulse Oximeter Pulse Oximetry (%) 98 Oxygen Delivery Method Room Air Intake Visit Reasons: bile salt induced diarrhea Intake Note: Patient is here to follow up Data Steward Required: No Allergies morphine [MORPHINE] Allergy (Intermediate, Verified 07/25/23 09:28) VOMITING Penicillins [PENICILLINS] Allergy (Intermediate, Verified 07/25/23 09:28) RASH Tobacco use date assessed: 07/25/23 Dental Screening Dental Screen Date: 07/25/23 Did you have a dental visit in the last 12 months?: Yes Did you have a dental problem in the last 6 months where you did not have access to dental care?: No Was dental information given to patient?: Patient has dentist HPI bile salt induced diarrhea HPI Details 57-year-old female smoker with a history hypercholesterolemia and GERD last seen in March 2023 coming in for follow-up. Patient had recent laparoscopic cholecystectomy and because of diarrhea was placed on Prevalite patient's mammogram is up-to-date colonoscopy is up-to-date [facility] Medical History (Updated 07/25/23 @ 10:01 by Barbara Bledsoe MD) Encounter for repeat Pap smear due to previous insufficient cervical cells Dysplasia of cervix, low grade (MAGALY 1) Upper back pain Annual physical exam Hyperkalemia Dyspareunia UTI (urinary tract infection) Dysuria Vitamin D deficiency Constipation Tobacco abuse Hypercholesterolemia GERD (gastroesophageal reflux disease) Migraine Surgical History (Updated 04/09/23 @ 09:47 by Barbara Bledsoe MD) History of removal of ovarian cyst Family History Father CVD (cardiovascular disease) Stroke FH: prostate cancer Mother Diabetes CVD (cardiovascular disease) Hypertension Sister Cancer Breast carcinoma Maternal Aunt Cancer Maternal Grandmother CVD (cardiovascular disease) Brother Substance abuse CVD (cardiovascular disease) Brother Colon cancer Social History Household Members: Family Housing: House Do you presently have visiting nurse or other home services: No Alcohol intake: current Alcohol intake frequency: a few times a week Patient Tobacco Use Status: Current everyday Tobacco user Tobacco use type: Cigarette Cigarette Packs Per Day: 0.25 Cigarettes Per Day: 8 e-Cigarette/Vaping Use: Never Used Second Hand Smoke Exposure: No Substance Use Type: Crack/Cocaine service: No Current occupational status: employed Sexual orientation: Straight/Heterosexual Gender identity: Female Cognitive needs: No Hearing needs: No Vision needs: Yes Questionnaire PHQ-9 Over the last 2 weeks, how often have you been bothered by any of the following problems? 1. Little interest or pleasure in doing things: not at all 2. Feeling down, depressed, or hopeless: several days 3. Trouble falling or staying asleep, or sleeping too much: not at all 4. Feeling tired or having little energy: not at all 5. Poor appetite or overeating: not at all 6. Feeling bad about yourself - or that you are a failure or have let yourself or your family down: not at all 7. Trouble concentrating on things, such as reading the newspaper or watching television: not at all 8. Moving or speaking so slowly that other people could have noticed. Or the opposite - being so fidgety or restless that you have been moving around a lot more than usual: not at all 9. Thoughts that you would be better off or of hurting yourself in some way: not at all Total score: 1 Depression Screening Interpretation: Negative Depression Screening Done: Yes Source: Developed by Drs. Marv Cantrell, Divine Melgoza, Thai Moore and colleagues, with an educational mariann from [employer]. Thrive Questionnaire Date Thrive assessed: 07/25/23 I am a: Patient What is your living situation today?: I have a steady place to live Within the past 12 months, did the food you bought not last and you didn't have the money to get more?: Never true Within the past 12 months, did you worry whether your food would run out before you got money to buy more?: Never true Do you have trouble paying for medicines?: No Do you have trouble getting transportation to medical appointments?: No Do you have trouble paying your heating and electricity bill?: No Do you have trouble taking care of your child, family member or friend?: No Do you have trouble with day-to-day activities such as bathing, preparing meals, shopping, managing finances, etc.?: No Are you currently unemployed and looking for a job?: No Are you interested in more education?: No Please select the resources that you would like help with: None THRIVE Score: 0 AUDIT C Alcohol Use Questionnaire (AUDIT-C) 1. How often do you have a drink containing alcohol?: Never 3. How often do you have six or more drinks on one occasion?: Never Total Score: 0 Score Reviewed/Action Taken: No LAINA-7 AMB Questionnaire LAINA-7 Date LAINA - 7 assessed: 07/25/23 Feeling nervous, anxious, or on edge: 0 = Not at all Not being able to stop or control worryin = Several days Worrying too much about different things: 0 = Not at all Trouble relaxin = Not at all Being so restless that it is hard to sit still: 0 = Not at all Becoming easily annoyed or irritable: 0 = Not at all Feeling afraid as if something awful might happen: 0 = Not at all Total LAINA-7 score (0-4 normal; 5-9 mild; 10-14 moderate; 15-21 severe): 1 Source: Developed by Drs. Marv Cantrell, Divine Melgoza, Thai Moore and colleagues, with an educational mariann from [employer]. Physical exam (Primary Care) Vital Signs: Last Vital Signs Pulse 78 07/25/23 09:27 BP 122/64 07/25/23 09:27 Pulse Ox 98 07/25/23 09:27 Oxygen Delivery Method Room Air 07/25/23 09:27 BMI result Body Mass Index 20.5 Tobacco/Smoking Status: Tobacco use Status Tobacco use date assessed 07/25/23 07/25/23 09:29 Patient Tobacco Use Status Current everyday Tobacco 07/25/23 09:34 Tobacco use type Cigarette 07/25/23 09:29 e-Cigarette/Vaping Use Never Used 07/25/23 09:29 PHQ-9: PHQ-9 Score PHQ-9: Total score 1 07/25/23 09:58 Depression Screening Interpretation: Negative Thrive Assessment: Date of Thrive Assessment Date Thrive assessed 07/25/23 07/25/23 09:29 Const General: alert; No acute distress Eyes Conjunctivae: conjunctivae normal Resp Auscultation: clear to auscultation bilaterally Cardio Rate: regular rate Rhythm: regular rhythm GI Inspection: Yes normal to inspection Extrem General: Yes normal to inspection and No edema Assessment and Plan Assessment & Plan (1) S/P laparoscopic cholecystectomy: Comment: 02/2023 Dr. Naqvi Code(s): Z90.49 - Acquired absence of other specified parts of digestive tract Plan: Low-fat diet (2) Migraine: Code(s): G43.909 - Migraine, unspecified, not intractable, without status migrainosus Qualifiers: Intractability: not intractable Migraine type: without aura Status migrainosus presence: without status migrainosus Qualified Code(s): G43.009 - Migraine without aura, not intractable, without status migrainosus Plan: Make sure patient has an adequate sleep, eat healthy and keep well hydrated on rizatriptan and propranolol (3) GERD (gastroesophageal reflux disease): Code(s): K21.9 - Gastro-esophageal reflux disease without esophagitis Qualifiers: Esophagitis presence: without esophagitis Qualified Code(s): K21.9 - Gastro-esophageal reflux disease without esophagitis Plan: Avoid the foods that causes that usually spicy foods, tomato products, juices, coffee, soda and foods that your sensitive to. After eating do not lie down, allow 3-4 hours before in lie down. And keep the head of bed above 30 degrees to avoid the acid from going up. (4) Hypercholesterolemia: Code(s): E78.00 - Pure hypercholesterolemia, unspecified Plan: Avoid fried foods, chicken skin, eggs, butter margarine, pastries and meat. Be it pork or beef they have a lot of cholesterol LDL goal of less than 130 and triglyceride of less than 150 (5) Tobacco abuse: Code(s): Z72.0 - Tobacco use Plan: Patient is strongly advised to stop smoking! (6) Generalized anxiety disorder: Comment: [facility] counselling Q week Mireya Code(s): F41.1 - Generalized anxiety disorder Plan: Continue with counseling and therapy presently on duloxetine. awaiting due to insurance coverage (7) Lateral epicondylitis of right elbow: Code(s): M77.11 - Lateral epicondylitis, right elbow Plan: dicusssed about musculoskeletal and decline orthopedic (8) Neck pain: Code(s): M54.2 - Cervicalgia Plan: heat and exercises advised Coding Level of Care Code Est Pt Level 4 (69428) Diagnoses S/P laparoscopic cholecystectomy Z90.49 Migraine without aura and without status migrainosus, not intractable G43.009 Intractability: not intractable Migraine type: without aura Status migrainosus presence: without status migrainosus Gastroesophageal reflux disease without esophagitis K21.9 Esophagitis presence: without esophagitis Hypercholesterolemia E78.00 Tobacco abuse Z72.0 Generalized anxiety disorder F41.1 Lateral epicondylitis of right elbow M77.11 Neck pain M54.2
== END 2023-07-25 10:13 | disposition home or self-care (01) ==
PROVIDERS: PCP Internal Medicine; Visit Provider Internal Medicine
DX: Z90.49 Acquired absence of other specified parts of digestive tract (principal); G43.009 Migraine without aura, not intractable, without status migrainosus; K21.9 Gastro-esophageal reflux disease without esophagitis; E78.00 Pure hypercholesterolemia, unspecified; Z72.0 Tobacco use; F41.1 Generalized anxiety disorder; M77.11 Lateral epicondylitis, right elbow; M54.2 Cervicalgia
CPT/HCPCS: 99214

== ENCOUNTER 2023-08-21 10:38 | Outpatient (REF) | payer OTHER, SELFPAY ==
[2023-08-26 11:04] LABS: HPV mRNA E6/E7 rflx Not Detected (Not Detected)
== END 2023-08-21 10:39 | disposition home or self-care (01) ==
LOC: HO.LNP 10:38
PROVIDERS: Visit Provider Advanced Practice Midwife
DX: Z01.419 Encounter for gynecological examination (general) (routine) without abnormal findings (principal); Z11.51 Encounter for screening for human papillomavirus (HPV); Z20.2 Contact with and (suspected) exposure to infections with a predominantly sexual mode of transmission
CPT/HCPCS: 87624; 88142; 99396

== ENCOUNTER 2023-08-21 10:38 | Outpatient (AMB) | payer OTHER, SELFPAY ==
--- NOTE | 2023-08-21 11:00 | MHC.OFFVIS ---
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 She is doing well with no concerns. Attempting to eat a healthy diet with calcium and vitamin D and stays active with exercise. Currently occasionally sexually active w/same partner. Denies any vaginal dryness or irritation. STI testing offered; she accepts. Last pap smear; Colpo 2021-CINI after 2 unsatisfactory paps. Last mammogram; 2022. Colonoscopy is UTD. Denies any family history of breast and colon cancer. [facility] Medical History Encounter for repeat Pap smear due to previous insufficient cervical cells Dysplasia of cervix, low grade (MAGALY 1) Upper back pain Annual physical exam Hyperkalemia Dyspareunia UTI (urinary tract infection) Dysuria Vitamin D deficiency Constipation Tobacco abuse Hypercholesterolemia GERD (gastroesophageal reflux disease) Migraine Surgical History (Updated 08/21/23 @ 11:19 by ANGELINA Sanchez) Hx of cholecystectomy History of removal of ovarian cyst Family History Father CVD (cardiovascular disease) Stroke FH: prostate cancer Mother Diabetes CVD (cardiovascular disease) Hypertension Sister Cancer Breast carcinoma Maternal Aunt Cancer Maternal Grandmother CVD (cardiovascular disease) Brother Substance abuse CVD (cardiovascular disease) Brother Colon cancer Social History Household Members: Family Housing: House Do you presently have visiting nurse or other home services: No Alcohol intake: current Alcohol intake frequency: a few times a week Patient Tobacco Use Status: Current everyday Tobacco user Tobacco use type: Cigarette Cigarette Packs Per Day: 0.25 Cigarettes Per Day: 8 e-Cigarette/Vaping Use: Never Used Second Hand Smoke Exposure: No Substance Use Type: Crack/Cocaine service: No Current occupational status: employed Sexual orientation: Straight/Heterosexual Gender identity: Female Cognitive needs: No Hearing needs: No Vision needs: Yes Female Reproductive History Menstrual Age of Menarche: 12 Duration of menses: 6-7 days control method: none Menopause type: natural Age of menopause: 37 Total pregnancies: 2 Full term: 1 Number of Living Children: 1 Ab spontaneous: 1 Date of last pap smear: 12/20/21 History of abnormal pap smear: No Date of Mammogram: 09/14/22 History of abnormal mammogram: No Review of Systems Const All systems reviewed & are unremarkable except as noted in HPI and below Reports as per HPI Eyes Reports no additional complaints ENT Reports no additional complaints Card Reports no additional complaints Resp Reports no additional complaints GI Reports as per HPI and Reports no additional complaints Reports as per HPI Musc Reports no additional complaints Skin/Breast Reports as per HPI Neuro Reports no additional complaints Psych Reports no additional complaints Endo Reports no additional complaints Beny/Lymph Reports no additional complaints Aller/Immun Reports no additional complaints Physical Exam Vital Signs: Last Vital Signs BP 114/68 08/21/23 11:03 BMI result Body Mass Index 20.6 Const General: cooperative, healthy appearing, no acute distress, well developed and alert Orientation/consciousness: patient oriented x3 HEENT Head: Yes normal to inspection Eyes General: appearance normal, both eyes and all related structures Neck Neck: Yes normal visual inspection Thyroid: Thyroid normal Chest Chest palpation & inspection: normal inspection of the chest and other (no puckering, dimpling, peau de orange, retraction, discharge, masses) Breast/axilla inspection: normal inspection of the breasts Breast/axilla palpation: normal palpation of the breasts Resp Effort & Inspection: normal respiratory effort GI Inspection: Yes normal to inspection Palpation (GI): Soft to palpation Rectal Exam - Female: deferred General: Yes bladder normal to palpation External Female Exam: normal external appearance and normal appearance of the urethra Speculum Exam - Vagina: normal appearance of the vagina, normal palpation, normal vaginal discharge and vagina atrophic Speculum Exam - Cervix: normal appearance of the cervix, normal palpation and Other cervical findings present (Stenotic os) Bimanual exam- vagina & uterus: normal bimanual exam, normal palpation, uterine size normal, bladder normal to palpation, normal palpation and non-tender Bimanual Exam- Adnexa, other: no masses Skin General skin exam: no rashes or lesions noted Rashes: no rashes Neuro General: patient oriented x3 Cognition (Neuro): normal cognition Extrem General: Yes normal to inspection Psych Attitude: cooperative Thought process: Normal thought process present Assessment & Plan Assessment & Plan (1) Possible exposure to STD: Code(s): Z20.2 - Contact with and (suspected) exposure to infections with a predominantly sexual mode of transmission Plan Discussed: Current recommendations for pap smears per ASCCP guidelines. Breast awareness, periodic self breast exams and yearly mammogram. Maintain a healthy lifestyle, well balanced diet including Calcium 1,200 mg and Vitamin D 600 IU daily, and routine exercise. Contact the office with any postmenopausal bleeding. Patient verbalizes understanding and agrees to the plan of care. She was given opportunity to ask questions and all questions were answered to the best of my ability. 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 This note is constructed using voice recognition software. While every effort has been made to ensure accuracy, ceiling insulation blower errors may have been included. Orders: Orders Syphilis Screen Today Z20.2 - Contact with and (suspected) exposure to infections with a predominantly sexual mode of transmission HIV Ab/Ag Today Z20.2 - Contact with and (suspected) exposure to infections with a predominantly sexual mode of transmission Hepatitis C Antibody Reflex Today Z20.2 - Contact with and (suspected) exposure to infections with a predominantly sexual mode of transmission Hepatitis B Core Antibody Today Z20.2 - Contact with and (suspected) exposure to infections with a predominantly sexual mode of transmission CT NG by PCR Today Z20.2 - Contact with and (suspected) exposure to infections with a predominantly sexual mode of transmission Pap Smear Today Z01.419 - Encounter for gynecological examination (general) (routine) without abnormal findings Coding Level of Care Code Est Pt Prev Care 40-64y(28931) Diagnoses Possible exposure to STD Z20.2
[2023-08-21 11:03] VITALS: BP 114/68; BMI 20.6
== END 2023-08-21 11:40 | disposition home or self-care (01) ==
PROVIDERS: Visit Provider Advanced Practice Midwife
DX: Z01.419 Encounter for gynecological examination (general) (routine) without abnormal findings (principal); Z20.2 Contact with and (suspected) exposure to infections with a predominantly sexual mode of transmission
CPT/HCPCS: 99396

== ENCOUNTER 2023-08-21 11:51 | Outpatient (REF) | payer OTHER, SELFPAY ==
[2023-08-21 17:53] LABS: CT PCR NOT DETECTED (Not Detect.); NG PCR NOT DETECTED (Not Detect.)
[2023-08-22 08:39] LABS: HBc Num1 0.15 S/CO (0.00-0.79); HIV AB/AG Nonreactive (Nonreactive); HIV Num 1 0.05 S/CO (0.00-0.99); Hepatitis B Core Antibody Nonreactive (Nonreactive); ~HepC Num1 0.07 S/CO (0.00-0.79); ~Hepatitis C Antibody Nonreactive (Nonreactive)
[2023-08-22 08:45] LABS: Syphilis Screen Nonreactive (Nonreactive)
== END 2023-08-21 11:52 | disposition home or self-care (01) ==
LOC: HO.LAB 11:51
PROVIDERS: Advanced Practice Midwife; PCP Internal Medicine; Visit Provider Internal Medicine
DX: Z11.4 Encounter for screening for human immunodeficiency virus [HIV] (principal); Z20.2 Contact with and (suspected) exposure to infections with a predominantly sexual mode of transmission
CPT/HCPCS: 0353U; 86704; 86780; 86803; 87389

== ENCOUNTER 2023-09-27 10:43 | Outpatient (REF) | payer OTHER, SELFPAY | END 2023-09-27 10:44 | disposition home or self-care (01) | LOC: HO.MAMMO 10:43 | PROVIDERS: PCP Internal Medicine; Visit Provider Internal Medicine | DX: Z12.31 Encounter for screening mammogram for malignant neoplasm of breast (principal) | CPT/HCPCS: 77063; 77067 ==

== ENCOUNTER → 2023-09-27 11:00 | Outpatient (BNV) | payer OTHER, SELFPAY | PROVIDERS: PCP Internal Medicine; Visit Provider Radiology Diagnostic Radiology | DX: Z12.31 Encounter for screening mammogram for malignant neoplasm of breast (principal) | CPT/HCPCS: 77063; 77067 ==

== ENCOUNTER 2023-10-03 10:12 | Outpatient (AMB) | payer OTHER, SELFPAY ==
[2023-10-03 10:13] VITALS: BP 128/70; PULSE 82; O2SAT 94; BMI 20.3
--- NOTE | 2023-10-03 10:13 | MHC.PC.OV ---
Vital Signs 10/03/23 10:13 Height 5 ft 2 in Weight 111 lb BMI 20.3 BP 128/70 Blood Pressure Location Lt brachial Position Sitting Pulse 82 Pulse Source Pulse Oximeter Pulse Oximetry (%) 94 Oxygen Delivery Method Room Air Intake Visit Reasons: 3m f/ u Allergies morphine [MORPHINE] Allergy (Intermediate, Verified 10/03/23 10:13) VOMITING Penicillins [PENICILLINS] Allergy (Intermediate, Verified 10/03/23 10:13) RASH Tobacco use date assessed: 10/03/23 Dental Screening Dental Screen Date: 10/03/23 Did you have a dental visit in the last 12 months?: Yes Did you have a dental problem in the last 6 months where you did not have access to dental care?: No Was dental information given to patient?: Patient has dentist HPI 3m f/ u HPI Details 57-year-old female smoker with a history of hypercholesterolemia GERD generalized anxiety disorder and migraine last seen in June 2023 status post laparoscopic cholecystectomy coming in for follow-up. Patient's mammogram is due, colonoscopy up-to-date 2015. Patient just had a mammogram done 09/27/2023 . going on a flight and cruise for medication to/for anxiety [facility] Medical History (Updated 10/03/23 @ 10:27 by Barbara Bledsoe MD) Benign positional vertigo Neck pain Unsatisfactory cervical Papanicolaou smear Encounter for repeat Pap smear due to previous insufficient cervical cells Dysplasia of cervix, low grade (MAGALY 1) Upper back pain Annual physical exam Hyperkalemia Dyspareunia UTI (urinary tract infection) Dysuria Vitamin D deficiency Constipation Tobacco abuse Hypercholesterolemia GERD (gastroesophageal reflux disease) Migraine Surgical History (Updated 10/03/23 @ 10:19 by Barbara Bledsoe MD) S/P laparoscopic cholecystectomy Hx of cholecystectomy History of removal of ovarian cyst Family History Father CVD (cardiovascular disease) Stroke FH: prostate cancer Mother Diabetes CVD (cardiovascular disease) Hypertension Sister Cancer Breast carcinoma Maternal Aunt Cancer Maternal Grandmother CVD (cardiovascular disease) Brother Substance abuse CVD (cardiovascular disease) Brother Colon cancer Social History Household Members: Family Housing: House Do you presently have visiting nurse or other home services: No Alcohol intake: current Alcohol intake frequency: a few times a week Patient Tobacco Use Status: Current everyday Tobacco user Tobacco use type: Cigarette Cigarette Packs Per Day: 0.25 Cigarettes Per Day: 8 e-Cigarette/Vaping Use: Never Used Second Hand Smoke Exposure: No Substance Use Type: Crack/Cocaine service: No Current occupational status: employed Sexual orientation: Straight/Heterosexual Gender identity: Female Cognitive needs: No Hearing needs: No Vision needs: Yes Female Reproductive History Menstrual Age of Menarche: 12 Questionnaire PHQ-9 Over the last 2 weeks, how often have you been bothered by any of the following problems? 1. Little interest or pleasure in doing things: not at all 2. Feeling down, depressed, or hopeless: several days 3. Trouble falling or staying asleep, or sleeping too much: not at all 4. Feeling tired or having little energy: not at all 5. Poor appetite or overeating: not at all 6. Feeling bad about yourself - or that you are a failure or have let yourself or your family down: not at all 7. Trouble concentrating on things, such as reading the newspaper or watching television: not at all 8. Moving or speaking so slowly that other people could have noticed. Or the opposite - being so fidgety or restless that you have been moving around a lot more than usual: not at all 9. Thoughts that you would be better off or of hurting yourself in some way: not at all Total score: 1 Depression Screening Interpretation: Negative Depression Screening Done: Yes Source: Developed by Drs. Marv Cantrell, Divine Melgoza, Thai Moore and colleagues, with an educational mariann from [employer]. Thrive Questionnaire Date Thrive assessed: 10/03/23 I am a: Patient What is your living situation today?: I have a steady place to live Within the past 12 months, did the food you bought not last and you didn't have the money to get more?: Never true Within the past 12 months, did you worry whether your food would run out before you got money to buy more?: Never true Do you have trouble paying for medicines?: No Do you have trouble getting transportation to medical appointments?: No Do you have trouble paying your heating and electricity bill?: No Do you have trouble taking care of your child, family member or friend?: No Do you have trouble with day-to-day activities such as bathing, preparing meals, shopping, managing finances, etc.?: No Are you currently unemployed and looking for a job?: No Are you interested in more education?: No Please select the resources that you would like help with: None Currently or been in a relationship where the following occur: no concerns reported THRIVE Score: 0 AUDIT C Alcohol Use Questionnaire (AUDIT-C) 1. How often do you have a drink containing alcohol?: Never 3. How often do you have six or more drinks on one occasion?: Never Total Score: 0 Score Reviewed/Action Taken: No LAINA-7 AMB Questionnaire LAINA-7 Date LAINA - 7 assessed: 10/03/23 Feeling nervous, anxious, or on edge: 0 = Not at all Not being able to stop or control worryin = Several days Worrying too much about different things: 0 = Not at all Trouble relaxin = Not at all Being so restless that it is hard to sit still: 0 = Not at all Becoming easily annoyed or irritable: 0 = Not at all Feeling afraid as if something awful might happen: 0 = Not at all Total LAINA-7 score (0-4 normal; 5-9 mild; 10-14 moderate; 15-21 severe): 1 Source: Developed by Drs. Marv Cantrell, Divine Melgoza, Thai Moore and colleagues, with an educational mariann from [employer]. Physical exam (Primary Care) Vital Signs: Last Vital Signs Pulse 82 10/03/23 10:13 BP 128/70 10/03/23 10:13 Pulse Ox 94 10/03/23 10:13 Oxygen Delivery Method Room Air 10/03/23 10:13 BMI result Body Mass Index 20.3 Tobacco/Smoking Status: Tobacco use Status Tobacco use date assessed 10/03/23 10/03/23 10:18 Patient Tobacco Use Status Current everyday Tobacco 10/03/23 10:18 Tobacco use type Cigarette 10/03/23 10:18 e-Cigarette/Vaping Use Never Used 10/03/23 10:18 PHQ-9: PHQ-9 Score PHQ-9: Total score 1 10/03/23 10:20 Depression Screening Interpretation: Negative Thrive Assessment: Date of Thrive Assessment Date Thrive assessed 10/03/23 10/03/23 10:18 Currently or been in a relationship where the following occur: no concerns reported Const General: alert; No acute distress Eyes Conjunctivae: conjunctivae normal Resp Auscultation: clear to auscultation bilaterally Cardio Rate: regular rate Rhythm: regular rhythm GI Inspection: Yes normal to inspection Extrem General: Yes normal to inspection and No edema Assessment and Plan Assessment & Plan (1) Tobacco abuse: Code(s): Z72.0 - Tobacco use Plan: Patient is strongly advised to stop smoking! (2) GERD (gastroesophageal reflux disease): Code(s): K21.9 - Gastro-esophageal reflux disease without esophagitis Qualifiers: Esophagitis presence: without esophagitis Qualified Code(s): K21.9 - Gastro-esophageal reflux disease without esophagitis Plan: Avoid the foods that causes that usually spicy foods, tomato products, juices, coffee, soda and foods that your sensitive to. After eating do not lie down, allow 3-4 hours before in lie down. And keep the head of bed above 30 degrees to avoid the acid from going up. On omeprazole (3) Hypercholesterolemia: Code(s): E78.00 - Pure hypercholesterolemia, unspecified Plan: Avoid fried foods, chicken skin, eggs, butter margarine, pastries and meat. Be it pork or beef they have a lot of cholesterol LDL goal of less than 130 and triglyceride of less than 150. (4) Generalized anxiety disorder: Comment: [facility] counselling Q week Mireya(declined 09/2023 Code(s): F41.1 - Generalized anxiety disorder Plan: Continue with present medication (5) Migraine: Code(s): G43.909 - Migraine, unspecified, not intractable, without status migrainosus Qualifiers: Intractability: not intractable Migraine type: without aura Status migrainosus presence: without status migrainosus Qualified Code(s): G43.009 - Migraine without aura, not intractable, without status migrainosus Orders: Orders Comprehensive Met. Panel Today E78.00 - Pure hypercholesterolemia, unspecified Thyroid Stimulating Hormone Today E78.00 - Pure hypercholesterolemia, unspecified Lipid Panel Today E78.00 - Pure hypercholesterolemia, unspecified Vitamin B12 and Folate Today E78.00 - Pure hypercholesterolemia, unspecified Vitamin D 25-OH Total Today E78.00 - Pure hypercholesterolemia, unspecified Complete Blood Count Auto Diff Today E78.00 - Pure hypercholesterolemia, unspecified Free T4 (Free Thyroxine) Today E78.00 - Pure hypercholesterolemia, unspecified Medications: New alprazolam 0.25 mg PO DAILY 14 tabs 0RF F41.1 - Generalized anxiety disorder Refilled cholecalciferol (vitamin D3) 50 mcg PO DAILY 90 caps 3RF 90 days E53.8 - Deficiency of other specified B group vitamins, E55.9 - Vitamin D deficiency, unspecified cyanocobalamin (vitamin B-12) 1,000 mcg PO DAILY 30 caps 3RF E53.8 - Deficiency of other specified B group vitamins duloxetine 20 mg PO BEDTIME 90 caps 2RF 90 days E78.00 - Pure hypercholesterolemia, unspecified cyproheptadine 4 mg PO .qd 30 tabs 2RF 30 days E53.8 - Deficiency of other specified B group vitamins propranolol 10 mg PO BID 60 tabs 11RF G43.009 - Migraine without aura, not intractable, without status migrainosus rizatriptan do not exceed 3 doses per 24 hrs 10 mg PO .QD PRN 14 tabs 11RF migraine headache 30 days G43.009 - Migraine without aura, not intractable, without status migrainosus omeprazole 20 mg PO DAILY 90 caps 1RF 90 days K21.9 - Gastro-esophageal reflux disease without esophagitis Discontinued hydrocodone-acetaminophen 5-325 mg Partial Fill upon patient request. Discontinued Reason: Ancillary Entered New Order 1 tab PO Q4-6H PRN 30 tabs 0RF pain Coding Level of Care Code Est Pt Level 4 (13753) Diagnoses Tobacco abuse Z72.0 Gastroesophageal reflux disease without esophagitis K21.9 Esophagitis presence: without esophagitis Hypercholesterolemia E78.00 Generalized anxiety disorder F41.1 Migraine without aura and without status migrainosus, not intractable G43.009 Intractability: not intractable Migraine type: without aura Status migrainosus presence: without status migrainosus
== END 2023-10-03 10:34 | disposition home or self-care (01) ==
PROVIDERS: PCP Internal Medicine; Visit Provider Internal Medicine
DX: Z72.0 Tobacco use (principal); K21.9 Gastro-esophageal reflux disease without esophagitis; E78.00 Pure hypercholesterolemia, unspecified; F41.1 Generalized anxiety disorder; G43.009 Migraine without aura, not intractable, without status migrainosus
CPT/HCPCS: 99214

== ENCOUNTER 2023-11-02 10:39 | Outpatient (AMB) | payer OTHER, SELFPAY ==
[2023-11-02 10:45] VITALS: BP 152/86; PULSE 84; O2SAT 95; BMI 20.3
--- NOTE | 2023-11-02 10:45 | A.OFFPC_ITS ---
Vital Signs 11/02/23 10:45 11/02/23 11:21 Height 5 ft 2 in Weight 111 lb 2 oz BMI 20.3 BP 152/86 H 128/80 Blood Pressure Location Lt brachial Lt brachial Position Sitting Sitting Pulse 84 Pulse Source Pulse Oximeter Pulse Oximetry (%) 95 Oxygen Delivery Method Room Air Intake Visit Reasons: Physical exam Intake Note: Patient is here today for a physical. 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 Accompanied by: Self / Same As Patient Allergies morphine [MORPHINE] Allergy (Intermediate, Verified 11/02/23 10:50) VOMITING Penicillins [PENICILLINS] Allergy (Intermediate, Verified 11/02/23 10:50) RASH Medication List - Last Reconciled 11/02/23 by Barbara Bledsoe MD alprazolam 0.25 mg PO DAILY cholecalciferol (vitamin D3) 50 mcg PO DAILY 90 days cholestyramine-aspartame 4 gram (Prevalite) 4 grams PO BID cyanocobalamin (vitamin B-12) 1,000 mcg PO DAILY cyproheptadine 4 mg PO .qd 30 days docusate sodium (Colace) 100 mg PO DAILY duloxetine 20 mg PO BEDTIME 90 days naproxen (Naprosyn) 500 mg PO BID PRN omeprazole 20 mg PO DAILY 90 days propranolol 10 mg PO BID rizatriptan 10 mg PO .QD PRN 30 days Tobacco use date assessed: 10/03/23 Dental Screening Dental Screen Date: 10/03/23 HPI Physical exam HPI Details 58-year-old female smoker with GERD hype rcholesterolemia generalized anxiety disorder and migraines coming in for physical exam last seen in September 2023. Mammogram is up-to-date September 2023 colonoscopy last done in 2015. Pap smear is up-to-date. cough 10/15/2023 no fevers, occ sore throat, , congested, mild sob, productive PFSH Medical History (Updated 11/02/23 @ 11:31 by Barbara Bledsoe MD) Benign positional vertigo Neck pain Unsatisfactory cervical Papanicolaou smear Encounter for repeat Pap smear due to previous insufficient cervical cells Dysplasia of cervix, low grade (MAGALY 1) Upper back pain Annual physical exam Hyperkalemia Dyspareunia UTI (urinary tract infection) Dysuria Vitamin D deficiency Constipation Tobacco abuse Hypercholesterolemia GERD (gastroesophageal reflux disease) Migraine Surgical History S/P laparoscopic cholecystectomy Hx of cholecystectomy History of removal of ovarian cyst Family History Father CVD (cardiovascular disease) Stroke FH: prostate cancer Mother Diabetes CVD (cardiovascular disease) Hypertension Sister Cancer Breast carcinoma Maternal Aunt Cancer Maternal Grandmother CVD (cardiovascular disease) Brother Substance abuse CVD (cardiovascular disease) Brother Colon cancer Social History (Updated 11/02/23 @ 11:25 by Barbara Bledsoe MD) Household Members: Family Housing: House Do you presently have visiting nurse or other home services: No Alcohol intake: current Alcohol intake frequency: a few times a week Comment: 2 days a week 2-3 glasses Patient Tobacco Use Status: Current everyday Tobacco user Tobacco use type: Cigarette Cigarette Packs Per Day: 0.25 Cigarettes Per Day: 8 Years Smoked: started 13 years/old e-Cigarette/Vaping Use: Never Used Second Hand Smoke Exposure: No Substance Use Type: Crack/Cocaine service: No Current occupational status: employed Sexual orientation: Straight/Heterosexual Gender identity: Female Cognitive needs: No Hearing needs: No Vision needs: Yes Female Reproductive History Menstrual Age of Menarche: 12 Questionnaire Thrive Questionnaire Date Thrive assessed: 10/03/23 LAINA-7 AMB Questionnaire LAINA-7 Date LAINA - 7 assessed: 10/03/23 Source: Developed by Drs. Marv Cantrell, Divine Melgoza, Thai Moore and colleagues, with an educational mariann from [employer]. Review of Systems Const Denies poor appetite and Denies weakness Eyes Denies no additional complaints ENT Reports Normal hearing present, Denies dizziness, Denies nasal congestion, Denies tinnitus and Denies sore throat Card Denies chest pain, Denies syncope, Denies rapid heart rate and Denies dyspnea Resp Denies cough and Denies dyspnea GI Denies change in stool character, Reports constipation, Denies diarrhea, Denies nausea and Denies vomiting Denies urinary frequency, Denies difficulty voiding and Denies dysuria Neuro Reports Normal hearing present, Denies confusion, Denies dizziness, Denies syncope and Denies weakness Psych Denies confusion Physical exam (Primary Care) Vital Signs: Last Vital Signs Pulse 84 11/02/23 10:45 BP 152/86 H 11/02/23 10:45 Pulse Ox 95 11/02/23 10:45 Oxygen Delivery Method Room Air 11/02/23 10:45 BMI result Body Mass Index 20.3 Tobacco/Smoking Status: Tobacco use Status Tobacco use date assessed 10/03/23 11/02/23 10:45 Patient Tobacco Use Status Current everyday Tobacco 11/02/23 10:45 Tobacco use type Cigarette 11/02/23 10:45 e-Cigarette/Vaping Use Never Used 11/02/23 10:45 Thrive Assessment: Date of Thrive Assessment Date Thrive assessed 10/03/23 11/02/23 10:45 Const General: No confusion Orientation/consciousness: No confusion HENMT Head: Yes normocephalic Ears: external ears normal and TM's normal bilaterally Face and sinus: Yes normal facial exam Mouth: moist mucous membranes Throat: Yes tonsils normal Eyes Conjunctivae: conjunctivae normal Pupils: Equal, round and reactive pupils present and Pupil accommodation reflex normal Direct Ophthalmoscopy: normal light reflex Neck Neck: No lymphadenopathy Thyroid: Thyroid normal Chest Chest palpation & inspection: normal inspection of the chest Resp Effort & Inspection: normal respiratory effort and no audible wheezes Auscultation: clear to auscultation bilaterally, no crackles, no wheezes and lung sounds not diminished Cardio Rate: regular rate Rhythm: regular rhythm Peripheral pulses: radial pulses present and dorsalis pedis present GI Palpation (GI): no masses Auscultation: normal bowel sounds and normoactive bowel sounds Rectal Exam - Female: deferred Skin General skin exam: no rashes or lesions noted Rashes: no rashes Neuro General: No confusion Cranial nerves: Yes Equal, round and reactive pupils present and Yes Normal hearing present Cognition (Neuro): normal cognition Gait exam (Neuro): Normal gait present Motor exam (neuro): 5/5 motor strength present throughout Deep tendon reflexes (DTR's): Right brachioradialis reflex intensity grade: 2+, Left brachioradialis reflex intensity grade: 2+, Right patellar reflex intensity grade: 2+ and Left patellar reflex intensity grade: 2+ Extrem General: No edema Assessment and Plan Assessment & Plan (1) Annual physical exam: Code(s): Z00.00 - Encounter for general adult medical examination without abnormal findings (2) Tobacco abuse: Code(s): Z72.0 - Tobacco use Plan: Patient is strongly advised to stop smoking! (3) Hypercholesterolemia: Code(s): E78.00 - Pure hypercholesterolemia, unspecified Plan: Avoid fried foods, chicken skin, eggs, butter margarine, pastries and meat. Be it pork or beef they have a lot of cholesterol LDL goal of less than 130 and tr iglyceride of less than 150. (4) GERD (gastroesophageal reflux disease): Code(s): K21.9 - Gastro-esophageal reflux disease without esophagitis Qualifiers: Esophagitis presence: without esophagitis Qualified Code(s): K21.9 - Gastro-esophageal reflux disease without esophagitis Plan: Avoid the foods that causes that usually spicy foods, tomato products, juices, coffee, soda and foods that your sensitive to. After eating do not lie down, allow 3-4 hours before in lie down. And keep the head of bed above 30 degrees to avoid the acid from going up. On omeprazole 20 mg once a day patient is advised to stop smoking! (5) Migraine: Code(s): G43.909 - Migraine, unspecified, not intractable, without status migrainosus Qualifiers: Migraine type: without aura Status migrainosus presence: without status migrainosus Intractability: not intractable Qualified Code(s): G43.009 - Migraine without aura, not intractable, without status migrainosus Plan: Continue with present medication as needed (6) Generalized anxiety disorder: Comment: [facility] counselling Q week Mireya(declined 09/2023 Code(s): F41.1 - Generalized anxiety disorder Plan: Continue with counseling and therapy. (7) Family history of colon cancer: Code(s): Z80.0 - Family history of malignant neoplasm of digestive organs (8) Acute bronchitis: Code(s): J20.9 - Acute bronchitis, unspecified Plan: most viral increase poral fluids Orders: Referrals Gastroenterology Referral Z80.0 - Family history of malignant neoplasm of digestive organs Coding Level of Care Code Est Pt Prev Care 40-64y(19695) Diagnoses Annual physical exam Z00.00 Tobacco abuse Z72.0 Hypercholesterolemia E78.00 Gastroesophageal reflux disease without esophagitis K21.9 Esophagitis presence: without esophagitis Migraine without aura and without status migrainosus, not intractable G43.009 Migraine type: without aura Status migrainosus presence: without status migrainosus Intractability: not intractable Generalized anxiety disorder F41.1 Family history of colon cancer Z80.0 Acute bronchitis J20.9
[2023-11-02 11:21] VITALS: BP 128/80
== END 2023-11-02 11:34 | disposition home or self-care (01) ==
LOC: HO.HMGH 10:39
PROVIDERS: PCP Internal Medicine; Visit Provider Internal Medicine
DX: Z00.00 Encounter for general adult medical examination without abnormal findings (principal); Z72.0 Tobacco use; E78.00 Pure hypercholesterolemia, unspecified; K21.9 Gastro-esophageal reflux disease without esophagitis; G43.009 Migraine without aura, not intractable, without status migrainosus; F41.1 Generalized anxiety disorder; Z80.0 Family history of malignant neoplasm of digestive organs; J20.9 Acute bronchitis, unspecified
CPT/HCPCS: 99396

== ENCOUNTER 2024-02-09 22:21 | Emergency (ER) | payer OTHER, SELFPAY ==
--- NOTE | 2024-02-09 | ECG_ITS ---
Test Reason : chest pain Blood Pressure : / mmHG Vent. Rate : 074 BPM Atrial Rate : 074 BPM P-R Int : 114 ms QRS Dur : 072 ms QT Int : 382 ms P-R-T Axes : 059 067 076 degrees QTc Int : 424 ms Normal sinus rhythm Normal ECG When compared with ECG of 25-AUG-2021 15:18, No significant change was found Referred By: Generic ED Physician Electronically Signed By:DANIELLE REED
--- NOTE | ~2024-02-09 | XR_ITS ---
EXAMINATION: XR CHEST CLINICAL INFORMATION: Chest pain. COMPARISON: 05/28/2014. TECHNIQUE: 2 views of the chest were obtained. FINDINGS: No significant abnormality is noted involving the heart, lungs, mediastinum, bony thorax or soft tissues. XR/XR chest 2V IMPRESSION: Unremarkable examination.
--- NOTE | ~2024-02-09 | CT_ITS ---
EXAMINATION: CT ANGIOGRAM CHEST CLINICAL INFORMATION: Chest pain radiating to the back. COMPARISON: Chest radiograph from the same date. TECHNIQUE: Multiple axial images were obtained through the chest after the administration of 70 mL of Omnipaque 350 intravenous contrast. Extensive vascular post-processing including two-dimensional and three-dimensional reformatted images were created and reviewed on an independent workstation. This CT examination was performed using dose optimization techniques as appropriate, variously including the following: *Automated exposure control *Adjustment of mA and/or kV according to patient size (this includes techniques or standardized protocols for targeted exams where dose is matched to indication/reason for exam; i.e. extremities or head) *Use of iterative reconstruction technique DLP: 213 mGy-cm FINDINGS: VASCULATURE: There is a type III thoracic aorta dissection beginning just distal to the left subclavian artery origin. The connection between the false lumen and the true lumen occurs at the level of the left main pulmonary artery with perfusion of the false lumen proximally. The dissection flap does not extend distally within the thoracic aorta and is primarily situated above the level of the lawanda, measuring only 7 cm in length. The involved segment of the aortic arch and proximal descending thoracic aorta are nonaneurysmal, measuring up to 2.8 cm in diameter. No additional dissections are identified. Mild fibrofatty plaque is noted in the distal thoracic aorta. No appreciable pulmonary emboli are identified. Supraaortic vessels are patent without dissection. Normal three-vessel branching pattern. LUNG: Mild to moderate centrilobular pulmonary emphysema. No consolidation. Central airways are clear. MEDIASTINUM: Heart is normal in size. No pericardial effusion. No mediastinal fluid collections. No adenopathy. Thyroid gland is unremarkable. PLEURA: No effusion or. Mass. CHEST WALL/axilla: No adenopathy. UPPER ABDOMEN: No acute findings. Status post cholecystectomy. OSSEOUS STRUCTURES: No acute osseous findings. No fracture or malalignment. Minimal degenerative disc disease midthoracic spine. CT/CT angio chest aorta IMPRESSION: 1. 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 2. Mild to moderate centrilobular pulmonary emphysema. 3. No acute pulmonary findings. This critical result was discussed by telephone with Dr. Galloway on 02/10/2024 at 1:35 AM.
[2024-02-09 22:31] VITALS: BP 165/77; PULSE 77; RESP 20; TEMP 36.3; O2SAT 100; BMI 20.5
[2024-02-09 22:52] LABS: MANUAL DIFF FLAG NO
[2024-02-09 22:53] LABS: Basophils Absolute Auto 0.1 X10*3/uL (0.0-0.2); Basophils Percent Auto 0.3 % (0-2); Eosinophils Percent Auto 0.2 % (0-4); Hematocrit 42.3 % (37.0-47.0); Imm Gran Abs Auto 0.08 X10*3/uL (0.00-0.03); Imm Gran Pct Auto 0.5 % (0.0-0.4); Lymphocytes Absolute Auto 1.5 X10*3/uL (1.2-4.9); Lymphocytes Percent Auto 9.3 % (20-40); Mean Corpuscular HGB Conc 33.1 g/dl (31.0-35.0); Mean Corpuscular Volume 90.8 fL (80.0-98.0); Mean Platelet Volume 10.7 fL (9.4-12.3); Monocytes Absolute Auto 0.7 X10*3/uL (0.1-1.2); Monocytes Percent Auto 4.6 % (2-11); Neutrophils Absolute Auto 13.4 x10*3/uL (2.0-8.3); Neutrophils Percent Auto 85.1 % (45-73); Platelet Count 214 X10*3/uL (160-400); Red Blood Count 4.66 X10*6/uL (4.20-5.50); Red Cell Distribution Width 14.6 % (11.0-16.0); White Blood Count 15.7 X10*3/uL (4.8-10.8)
[2024-02-09 23:09] LABS: Alanine Aminotransferase 16 U/L (0-31); Albumin Level 4.3 g/dL (3.5-5.0); Alkaline Phosphatase 94 U/L (39-117); Anion Gap 12 (12-20); Aspartate Amino Transferase 19 U/L (5-31); Bilirubin Direct < 0.2 mg/dL (0.0-0.5); Bilirubin Total 0.2 mg/dL (0.0-1.0); Blood Urea Nitrogen 8 mg/dL (9-16); Calcium 10.7 mg/dL (8.4-10.2); Carbon Dioxide 30 mmol/L (22-29); Chloride 107 mmol/L (96-108); Creatinine Clr Calc Pharmacy 63.9; Estimated Glomerular Filt Rate > 60; Glucose Random 136 mg/dL (60-115); Lipase 32 U/L (8-78); Potassium 5.9 mmol/L (3.3-5.1); Sodium 143 mmol/L (135-145); Total Protein 7.3 g/dL (6.5-8.0)
[2024-02-09 23:15] VITALS: BP 130/51; PULSE 65; RESP 15; TEMP 37.1; O2SAT 97
[2024-02-09 23:15] LABS: Troponin-I High Sensitivity < 2.7 ng/L (<3.5-17.0)
[2024-02-10] VITALS (12 sets, daily range): BP systolic 103–155; BP diastolic 51–91; PULSE 62–77; RESP 15–26; TEMP 36.6; O2SAT 98
--- NOTE | 2024-02-10 00:24 | ED_ITS ---
HPI - Chest Pain General Chief Complaint: Chest Pain Stated Complaint: chest pain Time Seen by Provider: 02/10/24 00:15 Source: patient Mode of arrival: ambulatory Limitations: no limitations History of Present Illness ED Provider: amada BURDEN narrative: Patient is smoker with history of hypertension, hyperlipidemia, anxiety and depression noncompliant to her medications, no known coronary artery disease noticed sharp pain started around 1900 in mid chest radiating to the back patient is very uncomfortable constant increases on palpation and taking deep breaths no history of similar pain in the past blood pressure on arrival 165/77 patient has been very uncomfortable since arrival Related Data Home Medications ?Medication ?Instructions ?Recorded ?Confirmed docusate sodium 100 mg capsule 100 mg PO DAILY 05/06/20 11/02/23 (Colace) Previous Rx's ?Medication ?Instructions ?Recorded naproxen 500 mg tablet (Naprosyn) 500 mg PO BID PRN pain #20 tabs 08/25/21 cholestyramine-aspartame 4 gram 4 g PO BID #231 grams 04/09/23 oral powder (Prevalite) alprazolam 0.25 mg tablet 0.25 mg PO DAILY #14 tabs 10/03/23 cholecalciferol (vitamin D3) 50 50 mcg PO DAILY 90 days #90 caps 10/03/23 mcg (2,000 unit) capsule cyanocobalamin (vitamin B-12) 1,000 mcg PO DAILY #30 caps 10/03/23 1,000 mcg capsule cyproheptadine 4 mg tablet 4 mg PO .qd 30 days #30 tabs 10/03/23 duloxetine 20 mg capsule,delayed 20 mg PO BEDTIME 90 days #90 caps 10/03/23 release omeprazole 20 mg capsule,delayed 20 mg PO DAILY 90 days #90 caps 10/03/23 release propranolol 10 mg tablet 10 mg PO BID #60 tabs 10/03/23 rizatriptan 10 mg tablet 10 mg PO .QD PRN migraine headache 10/03/23 30 days #14 tabs Allergies Allergy/AdvReac Type Severity Reaction Status Date / Time morphine [MORPHINE] Allergy Intermediate VOMITING Verified 02/09/24 22:37 Penicillins [PENICILLINS] Allergy Intermediate RASH Verified 02/09/24 22:37 Review of Systems 2 Review of Systems: Yes all other systems are reviewed and are negative PMFSH Past Medical History Medical History (Updated 02/11/24 @ 00:00 by Background Dacandace) Hypertension Benign positional vertigo Neck pain Unsatisfactory cervical Papanicolaou smear Encounter for repeat Pap smear due to previous insufficient cervical cells Dysplasia of cervix, low grade (MAGALY 1) Upper back pain Annual physical exam Hyperkalemia Dyspareunia UTI (urinary tract infection) Dysuria Vitamin D deficiency Constipation Tobacco abuse Hypercholesterolemia GERD (gastroesophageal reflux disease) Migraine Surgical History S/P laparoscopic cholecystectomy Hx of cholecystectomy History of removal of ovarian cyst Family History Family History Father CVD (cardiovascular disease) Stroke FH: prostate cancer Mother Diabetes CVD (cardiovascular disease) Hypertension Sister Cancer Breast carcinoma Maternal Aunt Cancer Maternal Grandmother CVD (cardiovascular disease) Brother Substance abuse CVD (cardiovascular disease) Brother Colon cancer Social History Social History Household Members: Family Housing: House Do you presently have visiting nurse or other home services: No Alcohol intake: current Alcohol intake frequency: a few times a week Alcohol type: beer, wine and hard liquor Comment: 2 days a week 2-3 glasses Patient Tobacco Use Status: Current everyday Tobacco user Tobacco use type: Cigarette Cigarette Packs Per Day: 0.25 Cigarettes Per Day: 8 Years Smoked: started 13 years/old Smoked in Last 30 Days: Yes e-Cigarette/Vaping Use: Never Used Second Hand Smoke Exposure: No Use of substances other than those prescribed or required for medical reasons: Yes Substance Use Type: Crack/Cocaine Substance Use Frequency: Chronic Longstanding Last Used Substance: Days (ago) Advance Directives: Yes Advance Directives on File: Yes Advance Directives Date on File: 11/04/21 Do you have a plan to hurt others: No Plan Patient : No service: No Current occupational status: employed Sexual orientation: Straight/Heterosexual Gender identity: Female Cognitive needs: No Hearing needs: No Vision needs: Yes Physical Exam 2 Vital Signs: Vital Signs: Last Vital Signs Temp 97.9 F 02/10/24 03:29 Pulse 70 02/10/24 03:29 Resp 15 02/10/24 03:29 BP 133/66 02/10/24 03:29 Pulse Ox 98 02/10/24 03:29 O2 Del Method Room Air 02/10/24 03:29 BMI result Body Mass Index 20.5 Appearance: Alert. Oriented X3. In moderate distress Eyes: No pallor or icterus ENT: Pharynx normal. Oral Mucosa moist Neck: Normal inspection. Neck supple. CVS: Normal heart rate and rhythm. Pulses normal. No murmur rub or gallop Respiratory: No respiratory distress. Equal air entry bilateral, no wheezing/rales/rhonchi tender to palpation anterior chest wall no bruits Abdomen: Soft and nontender. Bowel sounds are present, no mass palpable, no CVA tenderness Skin: Skin warm and dry. Normal skin color. Normal skin turgor. Extremities: No lower extremity edema. No calf tenderness equal pulses bilaterally Neuro: Oriented X 3. No motor deficit. No sensory deficit.No cerebellar signs , cranial nerves II-XII intact Medications Administered Discontinued Medications Generic Name Dose Route Start Last Admin Trade Name Freq PRN Reason Stop Dose Admin Hydromorphone HCl 1 mg 02/10/24 01:50 02/10/24 02:12 Hydromorphone Hcl 1 Mg/Ml Syringe IVPUSH 02/10/24 01:51 1 mg ONCE ONE Administration Protocol Sodium Chloride 1,000 mls @ 999 mls/hr 02/10/24 00:35 02/10/24 02:50 Ns IV 02/10/24 01:35 Infused .Q1H1M ONE Infusion Iohexol 70 ml 02/10/24 01:09 02/10/24 01:10 Iohexol 350 Mg/Ml 100 Ml Infus..Btl IV 02/10/24 01:10 70 ml ONCE ONE Administration Labetalol HCl 20 mg 02/10/24 01:04 02/10/24 01:14 Labetalol Hcl 100 Mg/20 Ml Vial IVPUSH 02/10/24 01:05 20 mg ONCE ONE Administration Morphine Sulfate 4 mg 02/10/24 00:35 02/10/24 00:46 Morphine Sulfate 4 Mg/Ml Cartridge IVPUSH 02/10/24 00:36 4 mg ONCE ONE Administration Protocol Ondansetron HCl 4 mg 02/10/24 00:35 02/10/24 00:46 Ondansetron Hcl 4 Mg/2 Ml Vial IVPUSH 02/10/24 00:36 4 mg ONCE ONE Administration Medical Decision Making Medical Decision Making MDM Narrative: Patient with acute onset of chest pain at rest smoker with history of hypertension anxiety and depression EKG without any ischemic changes normal cardiac enzymes possible she had a dissection of aorta and CTA chest was done which showed type B (111A) dissection involving the arch only. 0145 case discussed with vascular surgeon Dr. Goldsmith at [facility] will take the patient to CCU awaiting for the cardio surgeon to call back blood pressure 132/[address] Funez cardiovascular accepted the patient for medical management 320: Blood pressure 109/54 pulse rate 65 EMS here to take the patient patient is chest pain-free patient's COVID-19 positive also with mild congestion Differential Diagnosis Differential Diagnoses: The differential diagnosis associated with the presentation includes Aortic dissection/ACS/pneumothorax/PE Admission/Observation Consideration of admission/observation: Escalation of care including admission/observation considered Lab Data [facility] Lab Attestation statement: I reviewed the patient's lab results. 02/09/24 22:47 02/09/24 22:47 Labs: Lab Results 02/09/24 02/10/24 02/10/24 Range/Units 22:47 00:32 01:20 WBC 15.7 H (4.8-10.8) X10*3/uL RBC 4.66 (4.20-5.50) X10*6/uL Hgb 14.0 (12.0-16.0) g/dl Hct 42.3 (37.0-47.0) % MCV 90.8 (80.0-98.0) fL MCH 30.0 (27.0-33.0) pg MCHC 33.1 (31.0-35.0) g/dl RDW 14.6 (11.0-16.0) % Plt Count 214 (160-400) X10*3/uL MPV 10.7 (9.4-12.3) fL Immature Gran % (Auto) 0.5 H (0.0-0.4) % Neut % (Auto) 85.1 H (45-73) % Lymph % (Auto) 9.3 L (20-40) % [place] % (Auto) 4.6 (2-11) % Eos % (Auto) 0.2 (0-4) % Baso % (Auto) 0.3 (0-2) % Lymph # (Auto) 1.5 (1.2-4.9) X10*3/uL [place] # (Auto) 0.7 (0.1-1.2) X10*3/uL Eos # (Auto) 0.0 (0.0-0.4) X10*3/uL Baso # (Auto) 0.1 (0.0-0.2) X10*3/uL Abs Immat Gran (auto) 0.08 H (0.00-0.03) X10*3/uL Absolute Neuts (auto) 13.4 H (2.0-8.3) x10*3/uL Absolute Nucleated RBC 0.000 (0.0-0.012) X10*3/uL Nucleated RBC % (auto) 0.0 (0.0-0.2) /100WBC PT 12.4 (11.1-13.3) SEC INR 1.0 (0.9-1.1) APTT 28.3 (26.0-36.8) SEC Sodium 143 (135-145) mmol/L Potassium 5.9 H (3.3-5.1) mmol/L Chloride 107 (96-108) mmol/L Carbon Dioxide 30 H (22-29) mmol/L Anion Gap 12 (12-20) BUN 8 L (9-16) mg/dL Creatinine 0.74 (0.5-1.4) mg/dL Estim Creat Clear Calc 63.9 Estimated GFR > 60 Random Glucose 136 H (60-115) mg/dL Calcium 10.7 H D (8.4-10.2) mg/dL Total Bilirubin 0.2 (0.0-1.0) mg/dL Direct Bilirubin < 0.2 (0.0-0.5) mg/dL AST 19 (5-31) U/L ALT 16 (0-31) U/L Alkaline Phosphatase 94 (39-117) U/L Troponin I High Sens < 2.7 (<3.5-17.0) ng/L Total Protein 7.3 (6.5-8.0) g/dL Albumin 4.3 (3.5-5.0) g/dL Lipase 32 (8-78) U/L Urine Color Yellow Urine Appearance Clear Urine pH 8.5 (5.0-9.0) Ur Specific [place] 1.015 (1.005-1.025) Urine Protein Negative (Neg-Trace) mg/dL Urine Glucose (UA) Negative (Negative) mg/dL Urine Ketones Negative (Negative) mg/dL Urine Blood Negative (Negative) Urine Nitrite Negative (Negative) Ur Leukocyte Esterase Negative (Negative) COVID-19 (DIEGO) Positive A (Negative) COVID-19 Clin Com See Note Independent Interpretation I performed an independent interpretation of an: EKG and CT Scan Interpretation: Normal sinus rhythm heart rate 74 beats per minute normal intervals normal axis no acute ST T wave changes no acute ischemia Radiology Impression Discussion of test interpretation with radiology: I have reviewed the radiologist's reading. Radiologist Impression: [place] [id number] CT Scan Report Signed Patient: Ivana Reid MR#: [id number] : 1965 Acct:[id number] Age/Sex: 58 / F ADM Date: 02/09/24 Loc: .ED Attending Dr: Ordering Physician: Joe Galloway MD Date of Service: 02/10/24 Procedure(s): CT angio chest aorta Accession Number(s): [id number] cc: Barbara Bledsoe MD; Joe Galloway MD~ EXAMINATION: CT ANGIOGRAM CHEST CLINICAL INFORMATION: Chest pain radiating to the back. COMPARISON: Chest radiograph from the same date. TECHNIQUE: Multiple axial images were obtained through the chest after the administration of 70 mL of Omnipaque 350 intravenous contrast. Extensive vascular post-processing including two-dimensional and three-dimensional reformatted images were created and reviewed on an independent workstation. This CT examination was performed using dose optimization techniques as appropriate, variously including the following: *Automated exposure control *Adjustment of mA and/or kV according to patient size (this includes techniques or standardized protocols for targeted exams where dose is matched to indication/reason for exam; i.e. extremities or head) *Use of iterative reconstruction technique DLP: 213 mGy-cm FINDINGS: VASCULATURE: There is a type III thoracic aorta dissection beginning just distal to the left subclavian artery origin. The connection between the false lumen and the true lumen occurs at the level of the left main pulmonary artery with perfusion of the false lumen proximally. The dissection flap does not extend distally within the thoracic aorta and is primarily situated above the level of the lawanda, measuring only 7 cm in length. The involved segment of the aortic arch and proximal descending thoracic aorta are nonaneurysmal, measuring up to 2.8 cm in diameter. No additional dissections are identified. Mild fibrofatty plaque is noted in the distal thoracic aorta. No appreciable pulmonary emboli are identified. Supraaortic vessels are patent without dissection. Normal three-vessel branching pattern. LUNG: Mild to moderate centrilobular pulmonary emphysema. No consolidation. Central airways are clear. MEDIASTINUM: Heart is normal in size. No pericardial effusion. No mediastinal fluid collections. No adenopathy. Thyroid gland is unremarkable. PLEURA: No effusion or. Mass. CHEST WALL/axilla: No adenopathy. UPPER ABDOMEN: No acute findings. Status post cholecystectomy. OSSEOUS STRUCTURES: No acute osseous findings. No fracture or malalignment. Minimal degenerative disc disease midthoracic spine. CT/CT angio chest aorta IMPRESSION: 1. 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 2. Mild to moderate centrilobular pulmonary emphysema. 3. No acute pulmonary findings. This critical result was discussed by telephone with Dr. Galloway on 02/10/2024 at 1:35 AM. Dictated By: Preston Dunn MD Signed By: <Electronically signed by Preston Dunn MD in OV> 02/10/24 0136 DD/ 0105 Critical Care Time Critical Care Time Critical Care Time: Yes Total Critical Care Time: 90 Attestation: The patient was critically ill with a high probability of imminent or life threatening deterioration. I spent greater than ?100??minutes of discontinuous time evaluating the patient,delivering critical care at the bedside, discussing and evaluating pertinent data with consultants. Critical care time does not include time spent performing separately billable procedures or teaching. Total time spent performing critical care was ?90??minutes. Discharge Plan Discharge Clinical Impression: Dissecting aneurysm of thoracic aorta, Morton type B, COVID-19 Patient Disposition: [facility] Transfer Details: [facility] cardio ICU Dr Mary Prescriptions: No Action docusate sodium [Colace] 100 mg capsule 100 mg PO DAILY naproxen [Naprosyn] 500 mg tablet 500 mg PO BID PRN (Reason: pain) Qty: 20 0RF Prevalite 4 gram powder 4 g PO BID Qty: 231 3RF Rx Instructions: administer w/meal; avoid other meds within 1hr before or 4-6hr after dose cholecalciferol (vitamin D3) 50 mcg (2,000 unit) capsule 50 mcg PO DAILY 90 Days Qty: 90 3RF cyanocobalamin (vitamin B-12) 1,000 mcg capsule 1,000 mcg PO DAILY Qty: 30 3RF duloxetine 20 mg capsule,delayed release(DR/EC) 20 mg PO BEDTIME 90 Days Qty: 90 2RF omeprazole 20 mg capsule,delayed release(DR/EC) 20 mg PO DAILY 90 Days Qty: 90 1RF cyproheptadine 4 mg tablet 4 mg PO .qd 30 Days Qty: 30 2RF propranolol 10 mg tablet 10 mg PO BID Qty: 60 11RF rizatriptan 10 mg tablet 10 mg PO .QD PRN (Reason: migraine headache) 30 Days Qty: 14 11RF Rx Instructions: do not exceed 3 doses per 24 hrs alprazolam 0.25 mg tablet 0.25 mg PO DAILY Qty: 14 0RF Interventions: Acute Care Transfer Worksheet (ED) Last Done: 02/10/24 03:29 Discharge Date/Time: 02/10/24 03:34 Print Language: Lithuanian
[2024-02-10 00:38] LABS: Appearance Urine Clear; Color Urine Yellow; Glucose Urine UA Negative (Negative); Leukocyte Esterase Urine Negative (Negative); Nitrite Urine Negative (Negative); PH 8.5 (5.0-9.0); Specific Gravity - Urine 1.015 (1.005-1.025); Urine Blood Negative (Negative); Urine Ketones Negative (Negative); Urine Protein Negative (Neg-Trace)
[2024-02-10] MEDS: 0.9 % Sodium Chloride 1,000 ML 999 ML IV (00:43)
[2024-02-10] MEDS: Morphine Sulfate 4 MG/ML CARTRIDGE IVPUSH (00:46)
[2024-02-10] MEDS: ondansetron HCL 4 MG/2 ML VIAL IVPUSH (00:46)
[2024-02-10] MEDS: iohexoL 350 MG/ML 100 ML INFUS..BTL 70 ML IV (01:10)
[2024-02-10] MEDS: Labetalol HCL 100 MG/20 ML VIAL 20 MG IVPUSH (01:14)
[2024-02-10 01:35] LABS: Prothrombin Time 12.4 SEC (11.1-13.3)
[2024-02-10 01:37] LABS: Partial Thromboplastin Time 28.3 SEC (26.0-36.8)
[2024-02-10 01:53] LABS: COVID-19 Test Positive (Negative); IDNOW Serial# 08D9AD1C
[2024-02-10] MEDS: HYDROmorphone HCl 1 MG/ML SYRINGE IVPUSH (02:12)
--- NOTE | 2024-02-10 03:11 | PC.NURSE ---
Nurse to nurse report given to CHINA Fajardo at [facility] ([phone]) as pt is being transferred to their [facility] building RM 12. Pending ambulance transport. Pt is aware of plan of care.
== END 2024-02-10 03:34 | disposition short-term general hospital (02) ==
PROVIDERS: Emergency Provider Internal Medicine; PCP Internal Medicine
DX: U07.1 COVID-19 (principal); I71.012 Dissection of descending thoracic aorta; I10 Essential (primary) hypertension; E78.5 Hyperlipidemia, unspecified; F41.9 Anxiety disorder, unspecified; F32.A Depression, unspecified; Z91.148 Patient's other noncompliance with medication regimen for other reason
CPT/HCPCS: 36415; 71046; 71275; 80048; 80076; 81003; 83690; 84484; 85025; 85610; 85730; 87635; 93005; 96361; 96374; 96375; 99285; J1170; J1920; J2270; J2405; Q9967

== ENCOUNTER 2024-02-18 11:24 | Outpatient (AMB) | payer OTHER, SELFPAY ==
[2024-02-18 11:42] VITALS: BP 114/68; PULSE 72; O2SAT 96; BMI 20.1
--- NOTE | 2024-02-18 11:42 | A.OFFPC_ITS ---
Vital Signs 02/18/24 11:42 Height 5 ft 2 in Weight 110 lb BMI 20.1 BP 114/68 Blood Pressure Location Lt brachial Position Sitting Pulse 72 Pulse Source Pulse Oximeter Pulse Oximetry (%) 96 Oxygen Delivery Method Room Air Intake Visit Reasons: Migraine, anxiety Allergies morphine [MORPHINE] Allergy (Intermediate, Verified 02/18/24 11:42) VOMITING Penicillins [PENICILLINS] Allergy (Intermediate, Verified 02/18/24 11:42) RASH Tobacco use date assessed: 10/03/23 Dental Screening Dental Screen Date: 10/03/23 HPI Migraine, anxiety HPI Details 58-year-old female smoker with hyperchol esterolemia GERD migraine generalized anxiety disorder coming in for follow-up. Last seen in October 2023 had physical exam at that time. Up-to-date with mammogram colonoscopy last done in January 2016. Noted ER visit February 09 had chest pain had a CT angiogram showing thoracic aortic dissection without aneurysmal dilatation type 3B 7 cm segment of proximal descending thoracic aorta distal to the left subclavian origin mild to moderate emphysema. COVID-19 infection. Patient was transferred to [facility]. Patient was seen in the emergency room and was noted to have an dissection from the distal area of the thoracic aneurysm and was told that this not surgical and that we will need just to control the blood pressure. Blood pressure medications were changed to labetalol and nifedipine. Meanwhile blood work that was requested was not done yet. [facility] Medical History (Updated 02/18/24 @ 12:33 by Barbara Bledsoe MD) Hypertension Benign positional vertigo Neck pain Unsatisfactory cervical Papanicolaou smear Encounter for repeat Pap smear due to previous insufficient cervical cells Dysplasia of cervix, low grade (MAGALY 1) Upper back pain Annual physical exam Hyperkalemia Dyspareunia UTI (urinary tract infection) Dysuria Vitamin D deficiency Constipation Tobacco abuse Hypercholesterolemia GERD (gastroesophageal reflux disease) Migraine Surgical History S/P laparoscopic cholecystectomy Hx of cholecystectomy History of removal of ovarian cyst Family History Father CVD (cardiovascular disease) Stroke FH: prostate cancer Mother Diabetes CVD (cardiovascular disease) Hypertension Sister Cancer Breast carcinoma Maternal Aunt Cancer Maternal Grandmother CVD (cardiovascular disease) Brother Substance abuse CVD (cardiovascular disease) Brother Colon cancer Social History Household Members: Family Housing: House Do you presently have visiting nurse or other home services: No Alcohol intake: current Alcohol intake frequency: a few times a week Alcohol type: beer, wine and hard liquor Comment: 2 days a week 2-3 glasses Patient Tobacco Use Status: Current everyday Tobacco user Tobacco use type: Cigarette Cigarette Packs Per Day: 0.25 Cigarettes Per Day: 8 Years Smoked: started 13 years/old e-Cigarette/Vaping Use: Never Used Second Hand Smoke Exposure: No Substance Use Type: Crack/Cocaine Advance Directives Date on File: 11/04/21 service: No Current occupational status: employed Sexual orientation: Straight/Heterosexual Gender identity: Female Cognitive needs: No Hearing needs: No Vision needs: Yes Female Reproductive History Menstrual Age of Menarche: 12 Questionnaire PHQ-9 Over the last 2 weeks, how often have you been bothered by any of the following problems? 1. Little interest or pleasure in doing things: not at all 2. Feeling down, depressed, or hopeless: several days 3. Trouble falling or staying asleep, or sleeping too much: not at all 4. Feeling tired or having little energy: not at all 5. Poor appetite or overeating: not at all 6. Feeling bad about yourself - or that you are a failure or have let yourself or your family down: not at all 7. Trouble concentrating on things, such as reading the newspaper or watching television: not at all 8. Moving or speaking so slowly that other people could have noticed. Or the opposite - being so fidgety or restless that you have been moving around a lot more than usual: not at all 9. Thoughts that you would be better off or of hurting yourself in some way: not at all Total score: 1 Depression Screening Interpretation: Negative Depression Screening Done: Yes Source: Developed by Drs. Marv Cantrell, Divine Melgoza, Thai Moore and colleagues, with an educational mariann from [employer] Thrive Questionnaire Date Thrive assessed: 10/03/23 AUDIT C Alcohol Use Questionnaire (AUDIT-C) 1. How often do you have a drink containing alcohol?: Never 3. How often do you have six or more drinks on one occasion?: Never Total Score: 0 Score Reviewed/Action Taken: No LAINA-7 AMB Questionnaire LAINA-7 Date LAINA - 7 assessed: 10/03/23 Source: Developed by Drs. Marv Cantrell, Divine Melgoza, Thai Moore and colleagues, with an educational mariann from [employer] Physical exam (Primary Care) Vital Signs: Last Vital Signs Pulse 72 02/18/24 11:42 BP 114/68 02/18/24 11:42 Pulse Ox 96 02/18/24 11:42 Oxygen Delivery Method Room Air 02/18/24 11:42 BMI result Body Mass Index 20.1 Tobacco/Smoking Status: Tobacco use Status Tobacco use date assessed 10/03/23 02/18/24 11:44 Patient Tobacco Use Status Current everyday Tobacco 02/18/24 11:44 Tobacco use type Cigarette 02/18/24 11:44 e-Cigarette/Vaping Use Never Used 02/18/24 11:44 PHQ-9: PHQ-9 Score PHQ-9: Total score 1 02/18/24 12:11 Depression Screening Interpretation: Negative Thrive Assessment: Date of Thrive Assessment Date Thrive assessed 10/03/23 02/18/24 11:44 Const Other: Both antecubital area has a sq formed lesion multiple erythematous papular lesion General: alert; No acute distress Eyes Conjunctivae: conjunctivae normal Resp Auscultation: clear to auscultation bilaterally Cardio Rate: regular rate Rhythm: regular rhythm GI Inspection: Yes normal to inspection Extrem General: Yes normal to inspection and No edema Assessment and Plan Assessment & Plan (1) Tobacco abuse: Code(s): Z72.0 - Tobacco use Plan: Patient is strongly advised to stop smoking! (2) Hypercholesterolemia: Code(s): E78.00 - Pure hypercholesterolemia, unspecified Plan: Avoid fried foods, chicken skin, eggs, butter margarine, pastries and meat. Be it pork or beef they have a lot of cholesterol LDL goal of less than 70 (3) GERD (gastroesophageal reflux disease): Code(s): K21.9 - Gastro-esophageal reflux disease without esophagitis Qualifiers: Esophagitis presence: without esophagitis Qualified Code(s): K21.9 - Gastro-esophageal reflux disease without esophagitis Plan: Avoid the foods that causes that usually spicy foods, tomato products, juices, coffee, soda and foods that your sensitive to. After eating do not lie down, allow 3-4 hours before in lie down. And keep the head of bed above 30 degrees to avoid the acid from going up. (4) Thoracic aortic dissection: Comment: January 2024 Type III (type B) thoracic aorta dissection without associated aneurysmal dilatation, confined to a 7 cm segment of the proximal descending thoracic aorta beginning just distal to the left subclavian origin. 2. Mild to moderate centrilobular pulmonary emphysema. 3. No acute pulmonary findings. Code(s): I71.019 - Dissection of thoracic aorta, unspecified Plan: has been advised to ff up with vascular Dr. Goldsmith. Has been told that because the dissection is from the distal no surgery needed but will be seeing the vascular surgeon (5) Costochondritis: Code(s): M94.0 - Chondrocostal junction syndrome [Tietze] Plan: Anti-inflammatory sent in to take only as needed (6) Allergic contact dermatitis: Code(s): L23.9 - Allergic contact dermatitis, unspecified cause Plan: Steroid cream prescription sent in patient has squaredlesion on both antecubital areas (7) Right knee pain: Code(s): M25.561 - Pain in right knee Plan: X-ray requested. Patient was requesting for handicap placard but will do the x- ray 1st. Orders: Orders XR knee standing BI Today M25.561 - Pain in right knee Medications: New labetalol 100 mg PO BID 90 days 180 tabs 1RF ondansetron 4 mg PO Q8H PRN 20 tabs 0RF nausea and vomiting meloxicam 7.5 mg PO DAILY 30 tabs 0RF M94.0 - Chondrocostal junction syndrome [Tietze] nicotine 1 patch transdermal Q24H 28 ea 1RF Z72.0 - Tobacco use nifedipine ER 30 mg PO DAILY 90 tabs 1RF triamcinolone acetonide 0.5% 1 appl topical BID 30 grams 0RF L23.9 - Allergic contact dermatitis, unspecified cause nicotine 1 patch transdermal DAILY 14 ea 1RF Z72.0 - Tobacco use Discontinued cyanocobalamin (vitamin B-12) Discontinued Reason: Patient Completed Course 1,000 mcg PO DAILY 30 caps 3RF E53.8 - Deficiency of other specified B group vitamins duloxetine Discontinued Reason: Doctor's Order 20 mg PO BEDTIME 90 days 90 caps 2RF E78.00 - Pure hypercholesterolemia, unspecified naproxen (Naprosyn) Discontinued Reason: Doctor's Order 500 mg PO BID PRN 20 tabs 0RF pain M54.9 - Dorsalgia, unspecified cholestyramine-aspartame 4 gram (Prevalite) administer w/meal; avoid other meds within 1hr before or 4-6hr after dose Discontinued Reason: Doctor's Order 4 grams PO BID 231 grams 3RF Z90.49 - Acquired absence of other specified parts of digestive tract Coding Level of Care Code Est Pt Level 4 (69675) Diagnoses Tobacco abuse Z72.0 Hypercholesterolemia E78.00 Gastroesophageal reflux disease without esophagitis K21.9 Esophagitis presence: without esophagitis Thoracic aortic dissection I71.019 Costochondritis M94.0 Allergic contact dermatitis L23.9 Right knee pain M25.561
== END 2024-02-18 12:39 | disposition home or self-care (01) ==
PROVIDERS: PCP Internal Medicine; Visit Provider Internal Medicine
DX: Z72.0 Tobacco use (principal); E78.00 Pure hypercholesterolemia, unspecified; K21.9 Gastro-esophageal reflux disease without esophagitis; I71.019 Dissection of thoracic aorta, unspecified; M94.0 Chondrocostal junction syndrome [Tietze]; L23.9 Allergic contact dermatitis, unspecified cause; M25.561 Pain in right knee
CPT/HCPCS: 99214

== ENCOUNTER 2024-03-15 09:48 | Outpatient (REF) | payer OTHER, SELFPAY ==
--- NOTE | ~2024-03-15 | XR_ITS ---
EXAMINATION: XR KNEE AP STANDING CLINICAL INFORMATION: M25.561 - Pain in right knee COMPARISON: None available. TECHNIQUE: AP bilateral standing view of the knees was obtained. FINDINGS: Submitted for interpretation on May 26, 2024. No acute cortical disruption or malalignment. No lytic or blastic lesions. No metallic or radiopaque foreign body. XR/XR knee standing BI IMPRESSION: No acute fracture or dislocation. Electronically signed by: Cuate Livingston MD 05/26/2024 09:52 AM EST
[2024-03-15 10:15] LABS: MANUAL DIFF FLAG NO
[2024-03-15 10:51] LABS: Basophils Absolute Auto 0.1 X10*3/uL (0.0-0.2); Basophils Percent Auto 0.6 % (0-2); Eosinophils Absolute Auto 0.2 X10*3/uL (0.0-0.4); Hematocrit 39.5 % (37.0-47.0); Hemoglobin 12.8 g/dl (12.0-16.0); Imm Gran Abs Auto 0.05 X10*3/uL (0.00-0.03); Imm Gran Pct Auto 0.5 % (0.0-0.4); Lymphocytes Absolute Auto 2.3 X10*3/uL (1.2-4.9); Lymphocytes Percent Auto 22.1 % (20-40); Mean Corpuscular HGB Conc 32.4 g/dl (31.0-35.0); Mean Corpuscular Hemoglobin 29.9 pg (27.0-33.0); Mean Corpuscular Volume 92.3 fL (80.0-98.0); Mean Platelet Volume 11.1 fL (9.4-12.3); Monocytes Absolute Auto 1.1 X10*3/uL (0.1-1.2); Monocytes Percent Auto 10.1 % (2-11); Neutrophils Absolute Auto 6.8 x10*3/uL (2.0-8.3); Neutrophils Percent Auto 64.7 % (45-73); Platelet Count 222 X10*3/uL (160-400); Red Blood Count 4.28 X10*6/uL (4.20-5.50); Red Cell Distribution Width 14.3 % (11.0-16.0); White Blood Count 10.6 X10*3/uL (4.8-10.8)
[2024-03-15 12:14] LABS: Alanine Aminotransferase 14 U/L (0-31); Alkaline Phosphatase 98 U/L (39-117); Anion Gap 12 (12-20); Aspartate Amino Transferase 18 U/L (5-31); Bilirubin Total 0.5 mg/dL (0.0-1.0); Blood Urea Nitrogen 7 mg/dL (9-16); Calcium 9.4 mg/dL (8.4-10.2); Carbon Dioxide 30 mmol/L (22-29); Chloride 106 mmol/L (96-108); Cholesterol 162 mg/dL (<200); Estimated Glomerular Filt Rate > 60; Glucose Random 85 mg/dL (60-115); HDL Cholesterol 25 mg/dL (>40); Sodium 144 mmol/L (135-145); Total Protein 7.3 g/dL (6.5-8.0); Triglycerides 416 mg/dL (<150)
[2024-03-15 12:30] LABS: Free T4 (Free Thyroxine) 0.78 ng/dL (0.71-1.85); Thyroid Stimulating Hormone 1.85 uIU/mL (0.32-4.0); Vitamin D 25-OH Total 33.6 ng/mL (>30)
[2024-03-15 12:39] LABS: Folate 11.3 ng/mL (> or = 4.0); Vitamin B12 599 pg/mL (200-900)
== END 2024-03-15 09:49 | disposition home or self-care (01) ==
LOC: HO.XRAY 09:48
PROVIDERS: PCP Internal Medicine; Visit Provider Internal Medicine
DX: E78.00 Pure hypercholesterolemia, unspecified (principal); M25.561 Pain in right knee
CPT/HCPCS: 36415; 73565; 80053; 80061; 82306; 82607; 82746; 84439; 84443; 85025

== ENCOUNTER → 2024-03-15 10:02 | Outpatient (BNV) | payer OTHER, SELFPAY | PROVIDERS: PCP Internal Medicine; Visit Provider Radiology Diagnostic Radiology | DX: M25.561 Pain in right knee (principal) | CPT/HCPCS: 73565 ==

== ENCOUNTER 2024-03-21 10:45 | Outpatient (AMB) | payer OTHER, SELFPAY ==
--- NOTE | 2024-03-21 10:45 | A.OFFPC_ITS ---
Vital Signs 03/21/24 10:46 Height 5 ft 2 in Weight 115 lb BMI 21.0 BP 130/70 Blood Pressure Location Lt brachial Position Sitting Pulse 66 Pulse Source Pulse Oximeter Pulse Oximetry (%) 93 Oxygen Delivery Method Room Air Intake Visit Reasons: Cholesterol Intake Note: Patient is here to follow up on Cholesterol. Requesting for [employer] lab order for work Mash Grinder Required: No Triple Valve Mechanic: Not Required per policy Accompanied by: Self / Same As Patient Allergies morphine [MORPHINE] Allergy (Intermediate, Verified 03/21/24 10:46) VOMITING Penicillins [PENICILLINS] Allergy (Intermediate, Verified 03/21/24 10:46) RASH Tobacco use date assessed: 03/21/24 Dental Screening Dental Screen Date: 10/03/23 HPI Cholesterol HPI Details 58-year-old female smoker with hyperchol esterolemia GERD coming in for follow-up. Last seen in 02/12/2024 patient had thoracic aorta dissection but is being followed up by the vascular and no need for surgery. Patient's mammogram is up-to-date as well as colonoscopy. The patient was last seen in February 17. [facility] Medical History (Updated 02/18/24 @ 12:33 by Barbara Bledsoe MD) Hypertension Benign positional vertigo Neck pain Unsatisfactory cervical Papanicolaou smear Encounter for repeat Pap smear due to previous insufficient cervical cells Dysplasia of cervix, low grade (MAGALY 1) Upper back pain Annual physical exam Hyperkalemia Dyspareunia UTI (urinary tract infection) Dysuria Vitamin D deficiency Constipation Tobacco abuse Hypercholesterolemia GERD (gastroesophageal reflux disease) Migraine Surgical History S/P laparoscopic cholecystectomy Hx of cholecystectomy History of removal of ovarian cyst Family History Father CVD (cardiovascular disease) Stroke FH: prostate cancer Mother Diabetes CVD (cardiovascular disease) Hypertension Sister Cancer Breast carcinoma Maternal Aunt Cancer Maternal Grandmother CVD (cardiovascular disease) Brother Substance abuse CVD (cardiovascular disease) Brother Colon cancer Social History Household Members: Family Housing: House Do you presently have visiting nurse or other home services: No Alcohol intake: current Alcohol intake frequency: a few times a week Alcohol type: beer, wine and hard liquor Comment: 2 days a week 2-3 glasses Patient Tobacco Use Status: Current everyday Tobacco user Tobacco use type: Cigarette Cigarette Packs Per Day: 0.25 Cigarettes Per Day: 3 Years Smoked: started 13 years/old Packs Per Year: 0 Packs per year/per ci.00 e-Cigarette/Vaping Use: Never Used Second Hand Smoke Exposure: No Substance Use Type: Crack/Cocaine Advance Directives Date on File: 11/04/21 service: No Current occupational status: employed Sexual orientation: Straight/Heterosexual Gender identity: Female Cognitive needs: No Hearing needs: No Vision needs: Yes Female Reproductive History Menstrual Age of Menarche: 12 Questionnaire Thrive Questionnaire Date Thrive assessed: 10/03/23 Are you currently unemployed and looking for a job?: No LAINA-7 AMB Questionnaire LAINA-7 Date LAINA - 7 assessed: 10/03/23 Source: Developed by Drs. Marv Cantrell, Divine Melgoza, Thai Moore and colleagues, with an educational mariann from [employer]. Physical exam (Primary Care) Vital Signs: Last Vital Signs Pulse 66 03/21/24 10:46 BP 130/70 03/21/24 10:46 Pulse Ox 93 03/21/24 10:46 Oxygen Delivery Method Room Air 03/21/24 10:46 BMI result Body Mass Index 21.0 Tobacco/Smoking Status: Tobacco use Status Tobacco use date assessed 03/21/24 03/21/24 10:51 Patient Tobacco Use Status Current everyday Tobacco 03/21/24 10:51 Tobacco use type Cigarette 03/21/24 10:51 e-Cigarette/Vaping Use Never Used 03/21/24 10:51 Thrive Assessment: Date of Thrive Assessment Date Thrive assessed 10/03/23 03/21/24 10:51 Const General: alert; No acute distress Eyes Conjunctivae: conjunctivae normal Resp Auscultation: clear to auscultation bilaterally Cardio Rate: regular rate Rhythm: regular rhythm GI Inspection: Yes normal to inspection Extrem General: Yes normal to inspection and No edema Assessment and Plan Assessment & Plan (1) Tobacco abuse: Code(s): Z72.0 - Tobacco use Plan: Patient is strongly advised to stop smoking! (2) Hypercholesterolemia: Code(s): E78.00 - Pure hypercholesterolemia, unspecified Plan: Avoid fried foods, chicken skin, eggs, butter margarine, pastries and meat. Be it pork or beef they have a lot of cholesterol LDL goal of less than 130 and triglyceride of less than 150. Concern about the very high triglyceride. (3) GERD (gastroesophageal reflux disease): Code(s): K21.9 - Gastro-esophageal reflux disease without esophagitis Qualifiers: Esophagitis presence: without esophagitis Qualified Code(s): K21.9 - Gastro-esophageal reflux disease without esophagitis Plan: Avoid the foods that causes that usually spicy foods, tomato products, juices, coffee, soda and foods that your sensitive to. After eating do not lie down, allow 3-4 hours before in lie down. And keep the head of bed above 30 degrees to avoid the acid from going up. (4) Generalized anxiety disorder: Comment: [facility] counselling Q week Mireya(declined 09/2023 Code(s): F41.1 - Generalized anxiety disorder Plan: Continue with present medication and counseling. Orders: Orders Lipid Panel Today E78.00 - Pure hypercholesterolemia, unspecified Coding Level of Care Code Est Pt Level 4 (15286) Diagnoses Tobacco abuse Z72.0 Hypercholesterolemia E78.00 Gastroesophageal reflux disease without esophagitis K21.9 Esophagitis presence: without esophagitis Generalized anxiety disorder F41.1
[2024-03-21 10:46] VITALS: BP 130/70; PULSE 66; O2SAT 93; BMI 21.0
== END 2024-03-21 11:41 | disposition home or self-care (01) ==
PROVIDERS: PCP Internal Medicine; Visit Provider Internal Medicine
DX: Z72.0 Tobacco use (principal); E78.00 Pure hypercholesterolemia, unspecified; K21.9 Gastro-esophageal reflux disease without esophagitis; F41.1 Generalized anxiety disorder; Z00.00 Encounter for general adult medical examination without abnormal findings

== ENCOUNTER → 2024-03-21 10:45 | Outpatient (BNVA) | payer OTHER, SELFPAY | PROVIDERS: PCP Internal Medicine; Visit Provider Internal Medicine | DX: E78.00 Pure hypercholesterolemia, unspecified (principal); K21.9 Gastro-esophageal reflux disease without esophagitis; F41.1 Generalized anxiety disorder; F17.200 Nicotine dependence, unspecified, uncomplicated; Z71.6 Tobacco abuse counseling | CPT/HCPCS: 99212 ==

== ENCOUNTER 2024-07-11 10:49 | Outpatient (AMB) | payer OTHER, SELFPAY ==
--- NOTE | 2024-07-11 11:09 | A.OFFPC_ITS ---
Vital Signs 07/11/24 11:11 Height 5 ft 2 in Weight 116 lb 8 oz BMI 21.3 BP 110/70 Blood Pressure Location Lt brachial Position Sitting Temp 97.1 F Temp Source Skin Intake Visit Reasons: cholesterol Intake Note: Patient is here to follow up on Cholesterol. Pt decline flu shot today Culinary Director Required: No Marketing Technology Specialist: Not Required per policy Accompanied by: Self / Same As Patient Allergies morphine [MORPHINE] Allergy (Intermediate, Verified 07/11/24 11:11) VOMITING Penicillins [PENICILLINS] Allergy (Intermediate, Verified 07/11/24 11:11) RASH Tobacco use date assessed: 07/11/24 Dental Screening Dental Screen Date: 07/11/24 Did you have a dental visit in the last 12 months?: Yes Did you have a dental problem in the last 6 months where you did not have access to dental care?: No Was dental information given to patient?: Patient has dentist HPI cholesterol HPI Details The patient is a 58-year-old female presenting for a follow-up regarding her hyperlipidemia management. During the previous visit, it was noted that her cholesterol levels were significantly elevated, with a total cholesterol level exceeding 400 mg/dL. The patient acknowledges awareness of the dietary contributions to her condition and is advised to adhere to a modified diet to manage her lipid levels. The patient mentions a lack of dietary changes but remains concerned about her cholesterol status. There is no mention of associated cardiovascular symptoms such as chest pain or shortness of breath at this time. Previous attempts to modify her diet appear to have been inconsistent. Her current state reflects the need for continued monitoring of her lipid profile and potential therapeutic interventions to mitigate long-term cardiovascular risks associated with hyperlipidemia. [facility] Medical History (Updated 02/18/24 @ 12:33 by Barbara Bledsoe MD) Hypertension Benign positional vertigo Neck pain Unsatisfactory cervical Papanicolaou smear Encounter for repeat Pap smear due to previous insufficient cervical cells Dysplasia of cervix, low grade (MAGALY 1) Upper back pain Annual physical exam Hyperkalemia Dyspareunia UTI (urinary tract infection) Dysuria Vitamin D deficiency Constipation Tobacco abuse Hypercholesterolemia GERD (gastroesophageal reflux disease) Migraine Surgical History S/P laparoscopic cholecystectomy Hx of cholecystectomy History of removal of ovarian cyst Family History Father CVD (cardiovascular disease) Stroke FH: prostate cancer Mother Diabetes CVD (cardiovascular disease) Hypertension Sister Cancer Breast carcinoma Maternal Aunt Cancer Maternal Grandmother CVD (cardiovascular disease) Brother Substance abuse CVD (cardiovascular disease) Brother Colon cancer Social History (Updated 07/11/24 @ 11:15 by ANGELINA Parry) Household Members: Family Housing: House Do you presently have visiting nurse or other home services: No Alcohol intake: current Alcohol intake frequency: a few times a week Alcohol type: beer, wine and hard liquor Comment: 2 days a week 2-3 glasses Patient Tobacco Use Status: Current everyday Tobacco user Tobacco use type: Cigarette Cigarette Packs Per Day: 0.5 Cigarettes Per Day: 6 Years Smoked: started 13 years/old Packs Per Year: 0 Packs per year/per ci.00 e-Cigarette/Vaping Use: Never Used Second Hand Smoke Exposure: Yes Substance Use Type: Crack/Cocaine Advance Directives Date on File: 11/04/21 service: No Current occupational status: employed Sexual orientation: Straight/Heterosexual Gender identity: Female Cognitive needs: No Hearing needs: No Vision needs: Yes Female Reproductive History Menstrual Age of Menarche: 12 Questionnaire PHQ-9 Over the last 2 weeks, how often have you been bothered by any of the following problems? 1. Little interest or pleasure in doing things: not at all 2. Feeling down, depressed, or hopeless: more than half the days 3. Trouble falling or staying asleep, or sleeping too much: nearly every day 4. Feeling tired or having little energy: nearly every day 5. Poor appetite or overeating: nearly every day 6. Feeling bad about yourself - or that you are a failure or have let yourself or your family down: nearly every day 7. Trouble concentrating on things, such as reading the newspaper or watching television: nearly every day 8. Moving or speaking so slowly that other people could have noticed. Or the opposite - being so fidgety or restless that you have been moving around a lot more than usual: several days 9. Thoughts that you would be better off or of hurting yourself in some way: not at all Total score: 18 Depression Screening Interpretation: Positive Depression Screening Done: Yes Source: Developed by Drs. Marv L. Óscar, Thai Rey and colleagues, with an educational mariann from [employer]. Thrive Questionnaire Date Thrive assessed: 07/11/24 I am a: Patient What is your living situation today?: I have a steady place to live Within the past 12 months, did the food you bought not last and you didn't have the money to get more?: Never true Within the past 12 months, did you worry whether your food would run out before you got money to buy more?: Never true Do you have trouble paying for medicines?: No Do you have trouble getting transportation to medical appointments?: No Do you have trouble paying your heating and electricity bill?: No Do you have trouble taking care of your child, family member or friend?: No Do you have trouble with day-to-day activities such as bathing, preparing meals, shopping, managing finances, etc.?: No Are you currently unemployed and looking for a job?: No Are you interested in more education?: No Please select the resources that you would like help with: None Currently or been in a relationship where the following occur: No concerns reported THRIVE Score: 0 AUDIT C Alcohol Use Questionnaire (AUDIT-C) 1. How often do you have a drink containing alcohol?: Monthly or less 2. How many drinks containing alcohol do you have on a typical day when you are drinking?: 1 or 2 3. How often do you have six or more drinks on one occasion?: Weekly Total Score: 4 LAINA-7 AMB Questionnaire LAINA-7 Date LAINA - 7 assessed: 07/11/24 Feeling nervous, anxious, or on edge: 1 = Several days Not being able to stop or control worryin = Not at all Worrying too much about different things: 0 = Not at all Trouble relaxin = Not at all Being so restless that it is hard to sit still: 0 = Not at all Becoming easily annoyed or irritable: 0 = Not at all Feeling afraid as if something awful might happen: 0 = Not at all Total LIANA-7 score (0-4 normal; 5-9 mild; 10-14 moderate; 15-21 severe): 1 Source: Developed by Drs. Marv Cantrell, Thai Rey and colleagues, with an educational mariann from [employer]. Physical exam (Primary Care) Vital Signs: Last Vital Signs Temp 97.1 F 07/11/24 11:11 BP 110/70 07/11/24 11:11 BMI result Body Mass Index 21.3 Tobacco/Smoking Status: Tobacco use Status Tobacco use date assessed 07/11/24 07/11/24 11:18 Patient Tobacco Use Status Current everyday Tobacco 07/11/24 11:18 Tobacco use type Cigarette 07/11/24 11:18 e-Cigarette/Vaping Use Never Used 07/11/24 11:18 PHQ-9: PHQ-9 Score PHQ-9: Total score 18 07/11/24 11:18 Depression Screening Interpretation: Positive Thrive Assessment: Date of Thrive Assessment Date Thrive assessed 07/11/24 07/11/24 11:18 Currently or been in a relationship where the following occur: No concerns reported Const General: alert; No acute distress Eyes Conjunctivae: conjunctivae normal Resp Auscultation: clear to auscultation bilaterally Cardio Rate: regular rate Rhythm: regular rhythm GI Inspection: Yes normal to inspection Extrem General: Yes normal to inspection and No edema Coding Level of Care Code Est Pt Level 4 (21817) Complex EM visit Add On G2211 Diagnoses Tobacco abuse Z72.0 Hypercholesterolemia E78.00 Gastroesophageal reflux disease without esophagitis K21.9 Esophagitis presence: without esophagitis Generalized anxiety disorder F41.1 Assessment & Plan Assessment & Plan (1) Tobacco abuse: Code(s): Z72.0 - Tobacco use Category: Medical (2) Hypercholesterolemia: Code(s): E78.00 - Pure hypercholesterolemia, unspecified Category: Medical Plan: patient is given the request for cholesterol blood work (3) GERD (gastroesophageal reflux disease): Code(s): K21.9 - Gastro-esophageal reflux disease without esophagitis Category: Medical Qualifiers: Esophagitis presence: without esophagitis Qualified Code(s): K21.9 - G xiomara-esophageal reflux disease without esophagitis (4) Generalized anxiety disorder: Comment: [facility] counselling Q week Mireya(declined 09/2023 Code(s): F41.1 - Generalized anxiety disorder Category: Medical Plan - Discussed the critical importance of controlling hyperlipidemia through dietary and possibly pharmacological means. The patient is advised to adhere to a low-fat, heart-healthy diet and increase physical activity levels. - Arranged for a fasting lipid panel to reassess cholesterol levels and monitor the effectiveness of current management strategies. - Emphasized the necessity to receive the influenza vaccination given the season and her age as a preventive health measure. - Instructed the patient to be vigilant about avoiding exposure to infectious diseases during the flu season and to maintain good hygiene practices. - Provided a prescription to undergo a blood cholesterol test to facilitate further evaluation of her hyperlipidemia. Orders: Orders Comprehensive Met. Panel Today E78.00 - Pure hypercholesterolemia, unspecified
[2024-07-11 11:11] VITALS: BP 110/70; TEMP 36.2; BMI 21.3
== END 2024-07-11 11:45 | disposition home or self-care (01) ==
PROVIDERS: PCP Internal Medicine; Visit Provider Internal Medicine
DX: Z72.0 Tobacco use (principal); E78.00 Pure hypercholesterolemia, unspecified; K21.9 Gastro-esophageal reflux disease without esophagitis; F41.1 Generalized anxiety disorder; Z23 Encounter for immunization

== ENCOUNTER → 2024-07-11 10:49 | Outpatient (BNVA) | payer OTHER, SELFPAY | PROVIDERS: PCP Internal Medicine; Visit Provider Internal Medicine | DX: Z23 Encounter for immunization (principal); E78.00 Pure hypercholesterolemia, unspecified; K21.9 Gastro-esophageal reflux disease without esophagitis; F41.1 Generalized anxiety disorder; Z72.0 Tobacco use | CPT/HCPCS: 90471; 90656; 99212 ==

== ENCOUNTER 2024-08-18 10:47 | Outpatient (AMB) | payer OTHER, SELFPAY ==
--- NOTE | 2024-08-18 10:54 | A.OFFVIS_ITS ---
Vital Signs 08/18/24 10:56 Height 5 ft 2 in Weight 114 lb 10.246 oz BMI 21.0 BP 128/68 Blood Pressure Location Rt brachial Position Sitting Pulse 70 Pulse Source Pulse Oximeter Pulse Oximetry (%) 97 Oxygen Delivery Method Room Air Intake Visit Reasons: Pre Colonoscopy Intake Note: NEW PATIENT for 2nd lifetime recall (2015) Chief Complaint; No GI concerns per pt. Sx well controlled with current medications. Box Stamper Required: No Accompanied by: Self / Same As Patient Allergies morphine [MORPHINE] Allergy (Intermediate, Verified 08/18/24 10:55) VOMITING Penicillins [PENICILLINS] Allergy (Intermediate, Verified 08/18/24 10:55) RASH HPI HPI Pre Colonoscopy: Details: 58 year old? female with past medical history of costochondritis, anxiety, tobacco abuse, hypercholesteremia, GERD, migraines is here today for pre colonoscopy screening.? Patient was sent to us by her PCP.? Last colonoscopy normal in 2015, however patient has a family history of CRC. Patient reports patient's brother was diagnosed with CRC..? Patient denies any gastrointestinal symptoms in the past or at present.? However patient does admit that occasionally she might have acid reflux. Currently patient is on omeprazole and her symptoms are suppressed for the most part. ? Denies history of difficulty with sedation or anesthesia in the past.? Negative for history of sleep apnea.? Denies any history of cardiac, renal, pulmonary, or hepatic disease.?? No history of infectious? diseases like hepatitis A, B, C, HIV or tuberculosis.? Patient is not on any anticoagulation [facility] Medical History Hypertension Benign positional vertigo Neck pain Unsatisfactory cervical Papanicolaou smear Encounter for repeat Pap smear due to previous insufficient cervical cells Dysplasia of cervix, low grade (MAGALY 1) Upper back pain Annual physical exam Hyperkalemia Dyspareunia UTI (urinary tract infection) Dysuria Vitamin D deficiency Constipation Tobacco abuse Hypercholesterolemia GERD (gastroesophageal reflux disease) Migraine Surgical History S/P laparoscopic cholecystectomy Hx of cholecystectomy History of removal of ovarian cyst Family History Father CVD (cardiovascular disease) Stroke FH: prostate cancer Mother Diabetes CVD (cardiovascular disease) Hypertension Sister Cancer Breast carcinoma Maternal Aunt Cancer Maternal Grandmother CVD (cardiovascular disease) Brother Substance abuse CVD (cardiovascular disease) Brother Colon cancer Social History Household Members: Family Housing: House Do you presently have visiting nurse or other home services: No Alcohol intake: current Alcohol intake frequency: a few times a week Alcohol type: beer, wine and hard liquor Comment: 2 days a week 2-3 glasses Patient Tobacco Use Status: Current everyday Tobacco user Tobacco use type: Cigarette Cigarette Packs Per Day: 0.5 Cigarettes Per Day: 6 Years Smoked: started 13 years/old e-Cigarette/Vaping Use: Never Used Second Hand Smoke Exposure: Yes Substance Use Type: Crack/Cocaine Advance Directives Date on File: 11/04/21 service: No Current occupational status: employed Sexual orientation: Straight/Heterosexual Gender identity: Female Cognitive needs: No Hearing needs: No Vision needs: Yes Female Reproductive History Menstrual Age of Menarche: 12 Review of Systems Const Denies weight gain and Denies weight loss ENT Reports no additional complaints, Denies dysphagia and Denies odynophagia Card Reports no additional complaints Resp Reports no additional complaints GI Denies abdominal pain, Denies belching, Denies melena, Denies bloating, Denies change in bowel habits, Denies dysphagia, Denies excessive flatus, Denies dyspepsia, Denies heartburn, Denies diarrhea, Denies loose stools, Denies nausea, Denies odynophagia and Denies vomiting Musc Reports no additional complaints Neuro Reports no additional complaints Psych Reports no additional complaints Endo Reports no additional complaints Physical Exam Vital Signs: Last Vital Signs Pulse 70 08/18/24 10:56 BP 128/68 08/18/24 10:56 Pulse Ox 97 08/18/24 10:56 Oxygen Delivery Method Room Air 08/18/24 10:56 BMI result Body Mass Index 21.0 Const General: healthy appearing, no acute distress and well developed Nutritional Appearance: well nourished Orientation/consciousness: patient oriented x3 Resp Effort & Inspection: normal respiratory effort, able to speak in complete sentences, no tracheal deviation and symmetric chest movement Auscultation: clear to auscultation bilaterally Cardio Rate: regular rate GI Inspection: Yes normal to inspection and No distended Palpation (GI): Soft to palpation, not firm, nontender and No hepatosplenomegaly present Auscultation: normal bowel sounds General: Yes no CVA tenderness Back/Spine/Pelvis Back: no CVA tenderness Skin General skin exam: elasticity normal, turgor normal and dry skin Neuro General: patient oriented x3 Psych Appearance: grossly normal Mental Status: mental status grossly normal Assessment & Plan Assessment & Plan (1) Family history of colon cancer: Code(s): Z80.0 - Family history of malignant neoplasm of digestive organs Category: Medical (2) GERD (gastroesophageal reflux disease): Code(s): K21.9 - Gastro-esophageal reflux disease without esophagitis Category: Medical Qualifiers: Esophagitis presence: without esophagitis Qualified Code(s): K21.9 - Gastro-esophageal reflux disease without esophagitis (3) Screen for colon cancer: Code(s): Z12.11 - Encounter for screening for malignant neoplasm of colon Plan Patient denies any GI, cardiac or respiratory symptoms.? However patient does report occasional acid reflux despite taking omeprazole. Patient will be sent for upper endoscopy. Long history of PPI use as well as smoking. Denies any issues with anesthesia in the past.? Denies any history of sleep apnea.? No history infectious diseases in the past or present.? Not on any anticoagulation therapy.? Normal colonoscopy in 2016, however family history of CRC. Patient denies melena, hematochezia, unintentional weight loss or ribbon like stools.? Discussed at length the pre-procedure,? prep, diet & medications as well as what to expect prior, during and after the procedure.?? Stressed the importance of good bowel prep.? Recommended the use of Vaseline or Calmoseptine OTC & baby wipes with bowel movements to promote comfort.? ?Patient verbalizes understanding and agrees to plan of care.? She was given the opportunity to ask questions and all questions answered.? We will see her after the procedure.? Medications: New polyethylene glycol 3350 (Miralax) As directed by gastroenterology department at [facility] 238 grams PO ONCE 238 grams 0RF Z12.11 - Encounter for screening for malignant neoplasm of colon bisacodyl (Dulcolax (bisacodyl)) take 4 tabs at noon the day before your colonoscopy 20 mg (4 x 5 mg) PO ONCE 1 day 4 tabs 0RF Z12.11 - Encounter for screening for malignant neoplasm of colon Coding Level of Care Code New Pt Level 3 (60763) Diagnoses Family history of colon cancer Z80.0 Gastroesophageal reflux disease without esophagitis K21.9 Esophagitis presence: without esophagitis Screen for colon cancer Z12.11 Time Spent (min) 40 Comment 30 minutes spent with patient and additional 10 minutes spent reviewing her records
[2024-08-18 10:56] VITALS: BP 128/68; PULSE 70; O2SAT 97; BMI 21.0
== END 2024-08-18 11:23 | disposition home or self-care (01) ==
PROVIDERS: PCP Internal Medicine; Visit Provider Nurse Practitioner Family
DX: Z01.818 Encounter for other preprocedural examination (principal); Z12.11 Encounter for screening for malignant neoplasm of colon; Z80.0 Family history of malignant neoplasm of digestive organs; K21.9 Gastro-esophageal reflux disease without esophagitis
CPT/HCPCS: 99202

== ENCOUNTER → 2024-08-18 10:47 | Outpatient (BNVA) | payer OTHER, SELFPAY | PROVIDERS: PCP Internal Medicine; Visit Provider Nurse Practitioner Family | DX: Z12.11 Encounter for screening for malignant neoplasm of colon (principal); K21.9 Gastro-esophageal reflux disease without esophagitis; Z80.0 Family history of malignant neoplasm of digestive organs | CPT/HCPCS: 99202 ==

== ENCOUNTER 2024-09-20 15:49 | Emergency (ER) | payer OTHER, SELFPAY ==
--- NOTE | ~2024-09-20 | XR_ITS ---
CLINICAL HISTORY: chest pain Two views of the chest. COMPARISON: None FINDINGS: Normal heart and mediastinal contours. No consolidation. No pleural effusion or pneumothorax. No fracture identified. IMPRESSION: 1. No acute cardiopulmonary abnormality. This document has been electronically signed by: Huang Petersen MD on 09/20/2024 17:11:32
--- NOTE | 2024-09-20 15:52 | ECG_ITS ---
Test Reason : CHEST PAIN Blood Pressure : */* mmHG Vent. Rate : 78 BPM Atrial Rate : 78 BPM P-R Int : 116 ms QRS Dur : 76 ms QT Int : 382 ms P-R-T Axes : 92 57 64 degrees QTcB Int : 435 ms Normal sinus rhythm Normal ECG When compared with ECG of 09-Feb-2024 22:23, No significant change was found Referred By: Generic ED Physician Electronically Signed By: MARIO MCGINNIS MD
[2024-09-20 16:21] VITALS: BP 127/70; PULSE 75; RESP 18; TEMP 36.7; O2SAT 98; BMI 20.5
--- NOTE | 2024-09-20 16:23 | ED_ITS ---
HPI - General Adult General Chief complaint: Chest Pain Stated complaint: chest/back pain Time Seen by Provider: 09/20/24 17:04 Source: patient Limitations: no limitations History of Present Illness ED Provider: Hemalatha Porter PA-C HPI narrative: 58-year-old female with a history of hypertension, hyperlipidemia, tobacco abuse, costochondritis, anxiety who presents with upper back discomfort x1 month. Pain over left trapezius muscle, worse with certain movements and palpation. Patient states she does exercise and does lift heavy objects at time, she could have strained her back. This morning, she woke with left upper anterior chest discomfort that was worse with movement and palpation. Pain still present but is improved. No recent cough or cold symptoms, no trauma, no shortness of breath diaphoresis or nausea with her symptoms today. Related Data Home Medications ?Medication ?Instructions ?Recorded ?Confirmed docusate sodium 100 mg capsule 100 mg PO DAILY 05/06/20 11/02/23 (Colace) acetaminophen 325 mg tablet 325 mg PO QID PRN 02/18/24 Previous Rx's ?Medication ?Instructions ?Recorded alprazolam 0.25 mg tablet 0.25 mg PO DAILY #14 tabs 10/03/23 cholecalciferol (vitamin D3) 50 50 mcg PO DAILY 90 days #90 caps 10/03/23 mcg (2,000 unit) capsule omeprazole 20 mg capsule,delayed 20 mg PO DAILY 90 days #90 caps 10/03/23 release rizatriptan 10 mg tablet 10 mg PO .QD PRN migraine headache 10/03/23 30 days #14 tabs ondansetron 4 mg disintegrating 4 mg PO Q8H PRN nausea and 02/18/24 tablet vomiting #20 tabs triamcinolone acetonide 0.5 % 1 appl topical BID #30 grams 02/18/24 topical cream bupropion HCl 75 mg tablet 75 mg PO DAILY #90 tabs 06/27/24 labetalol 100 mg tablet 100 mg PO BID 90 days #180 tabs 06/27/24 cyproheptadine 4 mg tablet 4 mg PO .qd 30 days #30 tabs 07/16/24 nifedipine 30 mg tablet,extended 30 mg PO DAILY #90 tabs 07/23/24 release bisacodyl 5 mg tablet,delayed 20 mg (4 x 5 mg) PO ONCE 1 day #4 08/18/24 release (Dulcolax (bisacodyl)) tabs polyethylene glycol 3350 17 238 g PO ONCE #238 grams 08/18/24 gram/dose oral powder (Miralax) nicotine 7 mg/24 hr daily 1 patch transdermal Q24H #28 ea 09/04/24 transdermal patch meloxicam 7.5 mg tablet 7.5 mg PO DAILY #90 tabs 09/14/24 methocarbamol 750 mg tablet 750 mg PO BEDTIME PRN pain, 09/20/24 moderate #5 tabs Allergies Allergy/AdvReac Type Severity Reaction Status Date / Time morphine [MORPHINE] Allergy Intermediate VOMITING Verified 09/20/24 16:22 Penicillins [PENICILLINS] Allergy Intermediate RASH Verified 09/20/24 16:22 Review of Systems 2 Review of Systems: Yes all other systems are reviewed and are negative Constitutional: Constitutional: Denies fatigue and Denies fever(s) Cardiovascular: Cardiovascular: Reports chest pain and Denies dyspnea Respiratory: Respiratory: Denies cough and Denies dyspnea Gastrointestinal: Gastrointestinal: Denies abdominal pain, Denies nausea and Denies vomiting Musculoskeletal: Musculoskeletal: Reports back pain Endocrine: Endocrine: Denies fatigue [facility] Past Medical History Attestation statement: The following information was validated with the patient. Medical History Hypertension Benign positional vertigo Neck pain Unsatisfactory cervical Papanicolaou smear Encounter for repeat Pap smear due to previous insufficient cervical cells Dysplasia of cervix, low grade (MAGALY 1) Upper back pain Annual physical exam Hyperkalemia Dyspareunia UTI (urinary tract infection) Dysuria Vitamin D deficiency Constipation Tobacco abuse Hypercholesterolemia GERD (gastroesophageal reflux disease) Migraine Surgical History S/P laparoscopic cholecystectomy Hx of cholecystectomy History of removal of ovarian cyst Family History Family History Father CVD (cardiovascular disease) Stroke FH: prostate cancer Mother Diabetes CVD (cardiovascular disease) Hypertension Sister Cancer Breast carcinoma Maternal Aunt Cancer Maternal Grandmother CVD (cardiovascular disease) Brother Substance abuse CVD (cardiovascular disease) Brother Colon cancer Social History Social History Household Members: Family Housing: House Do you presently have visiting nurse or other home services: No Alcohol intake: current Alcohol intake frequency: a few times a week Alcohol type: beer, wine and hard liquor Comment: 2 days a week 2-3 glasses Patient Tobacco Use Status: Current everyday Tobacco user Tobacco use type: Cigarette Cigarette Packs Per Day: 0.5 Cigarettes Per Day: 6 Years Smoked: started 13 years/old Smoked in Last 30 Days: Yes e-Cigarette/Vaping Use: Never Used Second Hand Smoke Exposure: Yes Use of substances other than those prescribed or required for medical reasons: Yes Substance Use Type: Crack/Cocaine Substance Use Frequency: Daily Last Used Substance: Hours (ago) Any prior treatment program specific to substance use: No Advance Directives: Yes Advance Directives on File: Yes Advance Directives Date on File: 11/04/21 Patient : No service: No Current occupational status: employed Sexual orientation: Straight/Heterosexual Gender identity: Female Cognitive needs: No Hearing needs: No Vision needs: Yes Physical Exam ED Vital Signs: Vital Signs - 24 hr 09/20/24 16:21 09/20/24 17:25 09/20/24 18:14 Temperature 98.0 F 97.9 F 97.6 F Pulse Rate 75 65 66 Respiratory Rate 18 18 19 Blood Pressure 127/70 122/76 108/64 Pulse Oximetry 98 98 98 Oxygen Delivery Method Room Air Room Air Room Air BMI result Body Mass Index 20.5 Const Other: Alert well-appearing Orientation/consciousness: patient oriented x3 Chest Other: Pain elicited with palpation of left upper anterior chest wall no deformity noted Resp Effort & Inspection: normal respiratory effort Cardio Other: Normal peripheral perfusion Back/Spine/Pelvis Other: Palpable pain over left trapezius muscle Skin Other: Warm dry no rash Neuro General: patient oriented x3, gait normal, no focal motor deficits and CN's II- XI intact bilaterally Psych Other: Cooperative Course Course Course Narrative: Medical screening exam performed. Please refer to detailed history, exam, evaluation, and management by primary provider. Patient with intermittent chest pain since this morning. Hemodynamically stable and afebrile. No URI symptoms. Medical Decision Making Medical Decision Making MDM Narrative: 58-year-old female with a history of thoracic aortic dissection, hypertension, hyperlipidemia, tobacco abuse, costochondritis, anxiety who presents with upper back discomfort x1 month. Pain over left trapezius muscle, worse with certain movements and palpation. Patient states she does exercise and does lift heavy objects at time, she could have strained her back. This morning, she woke with left upper anterior chest discomfort that was worse with movement and palpation. Pain still present but is improved. No recent cough or cold symptoms, no trauma, no shortness of breath diaphoresis or nausea with her symptoms today. Problem: Thoracic aortic dissection, hypertension, tobacco abuse costochondritis History: Per patient I have considered the following differential diagnoses: Thoracic aortic dissection, costochondritis, ACS, chest wall strain Plan: ACS was considered, the patient does have risk factors for coronary artery disease, screening labs including a cardiac enzymes EKG and chest x-ray were obtained. Did consider thoracic aneurysm, however her pain is very focal to the left trapezius muscle group in his reproducible with palpation. She is also not overtly hypertensive, she had a chest x-ray did not that did not reveal widened mediastinum, she is neurovascularly intact. Thought about costochondritis, however she has not had preceding viral syndrome. Her symptoms are most consistent with musculoskeletal pain. I have independently reviewed the following tests: Labs: No leukocytosis, not anemic, no electrolyte abnormality, troponin negative EKG: Normal sinus rhythm, rate of 78, no ischemic changes no ectopy Chest x-ray:MPRESSION: 1. No acute cardiopulmonary abnormality. Lab Data 09/20/24 16:55 09/20/24 16:55 Labs: Lab Results 09/20/24 Range/Units 16:55 WBC 9.6 (4.8-10.8) X10*3/uL RBC 4.58 (4.20-5.50) X10*6/uL Hgb 13.1 (12.0-16.0) g/dl Hct 40.6 (37.0-47.0) % MCV 88.6 (80.0-98.0) fL MCH 28.6 (27.0-33.0) pg MCHC 32.3 (31.0-35.0) g/dl RDW 14.3 (11.0-16.0) % Plt Count 236 (160-400) X10*3/uL MPV 10.9 (9.4-12.3) fL Immature Gran % (Auto) 0.4 (0.0-0.4) % Neut % (Auto) 64.7 (45-73) % Lymph % (Auto) 25.0 (20-40) % [place] % (Auto) 8.5 (2-11) % Eos % (Auto) 1.0 (0-4) % Baso % (Auto) 0.4 (0-2) % Lymph # (Auto) 2.4 (1.2-4.9) X10*3/uL [place] # (Auto) 0.8 (0.1-1.2) X10*3/uL Eos # (Auto) 0.1 (0.0-0.4) X10*3/uL Baso # (Auto) 0.0 (0.0-0.2) X10*3/uL Abs Immat Gran (auto) 0.04 H (0.00-0.03) X10*3/uL Absolute Neuts (auto) 6.2 (2.0-8.3) x10*3/uL Absolute Nucleated RBC 0.000 (0.0-0.012) X10*3/uL Nucleated RBC % (auto) 0.0 (0.0-0.2) /100WBC Sodium 142 (135-145) mmol/L Potassium 4.9 D (3.3-5.1) mmol/L Chloride 107 (96-108) mmol/L Carbon Dioxide 29 (22-29) mmol/L Anion Gap 11 L (12-20) BUN 9 (9-16) mg/dL Creatinine 0.69 (0.5-1.4) mg/dL Estim Creat Clear Calc 68.5 Estimated GFR > 60 Random Glucose 80 (60-115) mg/dL Calcium 9.8 (8.4-10.2) mg/dL Total Bilirubin 0.3 (0.0-1.0) mg/dL AST 25 (5-31) U/L ALT 18 (0-31) U/L Alkaline Phosphatase 103 (39-117) U/L Troponin I High Sens < 2.7 (<3.5-17.0) ng/L Total Protein 7.0 (6.5-8.0) g/dL Albumin 4.0 (3.5-5.0) g/dL Lipase 25 (8-78) U/L Discharge Plan Discharge Clinical Impression: Chest wall pain, Trapezius muscle strain Patient Disposition: Home, Self-Care Instructions: Muscle Strain (ED) Additional Instructions: All of your screening labs including a cardiac enzymes were normal. The chest x-ray is clear there were no concerning changes on the EKG. Your discomfort is consistent with muscle strain. See home care instructions. Continue to use the ibuprofen, take it as directed with food. Use the methocarbamol as needed this is a muscle relaxant. This medication will cause drowsiness, do not drive or operate machinery while taking the medication. Follow up with your primary care provider as needed. Prescriptions: New methocarbamol 750 mg tablet 750 mg PO BEDTIME PRN (Reason: pain, moderate) Qty: 5 0RF No Action labetalol 100 mg tablet 100 mg PO BID 90 Days Qty: 180 1RF bupropion HCl 75 mg tablet 75 mg PO DAILY Qty: 90 0RF Rx Instructions: administer 6 hours apart cyproheptadine 4 mg tablet 4 mg PO .qd 30 Days Qty: 30 2RF nifedipine 30 mg tablet extended release 30 mg PO DAILY Qty: 90 1RF nicotine 7 mg/24 hr patch 24 hour 1 patch transdermal Q24H Qty: 28 1RF meloxicam 7.5 mg tablet 7.5 mg PO DAILY Qty: 90 0RF docusate sodium [Colace] 100 mg capsule 100 mg PO DAILY acetaminophen 325 mg tablet 325 mg PO QID PRN ondansetron 4 mg tablet,disintegrating 4 mg PO Q8H PRN (Reason: nausea and vomiting) Qty: 20 0RF triamcinolone acetonide 0.5 % cream 1 appl topical BID Qty: 30 0RF cholecalciferol (vitamin D3) 50 mcg (2,000 unit) capsule 50 mcg PO DAILY 90 Days Qty: 90 3RF omeprazole 20 mg capsule,delayed release(DR/EC) 20 mg PO DAILY 90 Days Qty: 90 1RF rizatriptan 10 mg tablet 10 mg PO .QD PRN (Reason: migraine headache) 30 Days Qty: 14 11RF Rx Instructions: do not exceed 3 doses per 24 hrs alprazolam 0.25 mg tablet 0.25 mg PO DAILY Qty: 14 0RF bisacodyl [Dulcolax (bisacodyl)] 5 mg tablet,delayed release (DR/EC) 20 mg PO ONCE 1 Days Qty: 4 0RF Rx Instructions: take 4 tabs at noon the day before your colonoscopy polyethylene glycol 3350 [Miralax] 17 gram/dose powder 238 g PO ONCE Qty: 238 0RF Rx Instructions: As directed by gastroenterology department at [facility] Print Language: Citizen Of [place]
[2024-09-20 17:00] LABS: MANUAL DIFF FLAG NO
[2024-09-20 17:02] LABS: Basophils Percent Auto 0.4 % (0-2); Eosinophils Absolute Auto 0.1 X10*3/uL (0.0-0.4); Hematocrit 40.6 % (37.0-47.0); Hemoglobin 13.1 g/dl (12.0-16.0); Imm Gran Abs Auto 0.04 X10*3/uL (0.00-0.03); Imm Gran Pct Auto 0.4 % (0.0-0.4); Lymphocytes Absolute Auto 2.4 X10*3/uL (1.2-4.9); Mean Corpuscular HGB Conc 32.3 g/dl (31.0-35.0); Mean Corpuscular Hemoglobin 28.6 pg (27.0-33.0); Mean Corpuscular Volume 88.6 fL (80.0-98.0); Mean Platelet Volume 10.9 fL (9.4-12.3); Monocytes Absolute Auto 0.8 X10*3/uL (0.1-1.2); Monocytes Percent Auto 8.5 % (2-11); Neutrophils Absolute Auto 6.2 x10*3/uL (2.0-8.3); Neutrophils Percent Auto 64.7 % (45-73); Platelet Count 236 X10*3/uL (160-400); Red Blood Count 4.58 X10*6/uL (4.20-5.50); Red Cell Distribution Width 14.3 % (11.0-16.0); White Blood Count 9.6 X10*3/uL (4.8-10.8)
[2024-09-20 17:17] LABS: Alanine Aminotransferase 18 U/L (0-31); Alkaline Phosphatase 103 U/L (39-117); Anion Gap 11 (12-20); Aspartate Amino Transferase 25 U/L (5-31); Bilirubin Total 0.3 mg/dL (0.0-1.0); Blood Urea Nitrogen 9 mg/dL (9-16); Calcium 9.8 mg/dL (8.4-10.2); Carbon Dioxide 29 mmol/L (22-29); Chloride 107 mmol/L (96-108); Creatinine Clr Calc Pharmacy 68.5; Estimated Glomerular Filt Rate > 60; Glucose Random 80 mg/dL (60-115); Lipase 25 U/L (8-78); Potassium 4.9 mmol/L (3.3-5.1); Sodium 142 mmol/L (135-145)
[2024-09-20 17:25] VITALS: BP 122/76; PULSE 65; RESP 18; TEMP 36.6; O2SAT 98
[2024-09-20 17:28] LABS: Troponin-I High Sensitivity < 2.7 ng/L (<3.5-17.0)
[2024-09-20 18:14] VITALS: BP 108/64; PULSE 66; RESP 19; TEMP 36.4; O2SAT 98
[2024-09-20 19:17] VITALS: BP 108/64; PULSE 66; RESP 19; TEMP 36.4; O2SAT 98
== END 2024-09-20 19:17 | disposition home or self-care (01) ==
PROVIDERS: Physician Assistant; Emergency Provider Emergency Medicine; PCP Internal Medicine
DX: S29.012A Strain of muscle and tendon of back wall of thorax, initial encounter (principal); R07.89 Other chest pain; X50.0XXA Overexertion from strenuous movement or load, initial encounter; X50.3XXA Overexertion from repetitive movements, initial encounter; X50.9XXA Other and unspecified overexertion or strenuous movements or postures, initial encounter; Y93.B3 Activity, free weights; Y92.89 Other specified places as the place of occurrence of the external cause; Y99.8 Other external cause status; Z79.899 Other long term (current) drug therapy
CPT/HCPCS: 36415; 71046; 80053; 83690; 84484; 85025; 93005; 99284; 99285

== ENCOUNTER → 2024-09-20 15:52 | Outpatient (BNV) | payer OTHER, SELFPAY | PROVIDERS: Emergency Provider Emergency Medicine; PCP Internal Medicine; Visit Provider Internal Medicine Cardiovascular Disease | DX: R07.9 Chest pain, unspecified (principal) | CPT/HCPCS: 93010 ==

== ENCOUNTER → 2024-09-20 16:24 | Outpatient (BNV) | payer OTHER, SELFPAY | PROVIDERS: PCP Internal Medicine; Visit Provider Radiology Diagnostic Radiology | DX: R07.9 Chest pain, unspecified (principal) | CPT/HCPCS: 71046 ==

== ENCOUNTER 2024-10-02 10:38 | Outpatient (REF) | payer OTHER, SELFPAY | END 2024-10-02 10:39 | disposition home or self-care (01) | LOC: HO.MAMMO 10:38 | PROVIDERS: PCP Internal Medicine; Visit Provider Internal Medicine | DX: Z12.31 Encounter for screening mammogram for malignant neoplasm of breast (principal) | CPT/HCPCS: 77063; 77067 ==

== ENCOUNTER → 2024-10-02 10:45 | Outpatient (BNV) | payer OTHER, SELFPAY | PROVIDERS: PCP Internal Medicine; Visit Provider Internal Medicine | DX: Z12.31 Encounter for screening mammogram for malignant neoplasm of breast (principal) | CPT/HCPCS: 77063; 77067 ==

== ENCOUNTER 2024-10-17 15:44 | Outpatient (AMB) | payer OTHER, SELFPAY ==
[2024-10-17 15:52] VITALS: BP 122/62; PULSE 71; O2SAT 97; BMI 21.0
--- NOTE | 2024-10-17 15:52 | A.OFFPC_ITS ---
Vital Signs 10/17/24 15:52 Height 5 ft 2 in Weight 115 lb BMI 21.0 BP 122/62 Blood Pressure Location Lt brachial Position Sitting Pulse 71 Pulse Source Pulse Oximeter Pulse Oximetry (%) 97 Oxygen Delivery Method Room Air Intake Visit Reasons: follow up Allergies morphine [MORPHINE] Allergy (Intermediate, Verified 10/17/24 15:52) VOMITING Penicillins [PENICILLINS] Allergy (Intermediate, Verified 10/17/24 15:52) RASH Medication List - Last Reconciled 10/17/24 by Barbara Bledsoe MD acetaminophen 325 mg PO QID PRN alprazolam 0.25 mg PO DAILY bisacodyl (Dulcolax (bisacodyl)) 20 mg (4 x 5 mg) PO ONCE 1 day bupropion HCl 75 mg PO DAILY cholecalciferol (vitamin D3) 50 mcg PO DAILY 90 days cyproheptadine 4 mg PO .qd 30 days docusate sodium (Colace) 100 mg PO DAILY labetalol 100 mg PO BID 90 days meloxicam 7.5 mg PO DAILY methocarbamol 750 mg PO BEDTIME PRN nicotine 1 patch transdermal Q24H nifedipine ER 30 mg PO DAILY omeprazole 20 mg PO DAILY 90 days ondansetron 4 mg PO Q8H PRN polyethylene glycol 3350 (Miralax) 238 grams PO ONCE rizatriptan 10 mg PO .QD PRN 30 days triamcinolone acetonide 0.5% 1 appl topical BID Tobacco use date assessed: 07/11/24 Dental Screening Dental Screen Date: 07/11/24 HPI follow up HPI Details cough, no sore throat, no post nasal drip , 1.5 months, chest wheezing PFSH Medical History Hypertension Benign positional vertigo Neck pain Unsatisfactory cervical Papanicolaou smear Encounter for repeat Pap smear due to previous insufficient cervical cells Dysplasia of cervix, low grade (MAGALY 1) Upper back pain Annual physical exam Hyperkalemia Dyspareunia UTI (urinary tract infection) Dysuria Vitamin D deficiency Constipation Tobacco abuse Hypercholesterolemia GERD (gastroesophageal reflux disease) Migraine Surgical History S/P laparoscopic cholecystectomy Hx of cholecystectomy History of removal of ovarian cyst Family History Father CVD (cardiovascular disease) Stroke FH: prostate cancer Mother Diabetes CVD (cardiovascular disease) Hypertension Sister Cancer Breast carcinoma Maternal Aunt Cancer Maternal Grandmother CVD (cardiovascular disease) Brother Substance abuse CVD (cardiovascular disease) Brother Colon cancer Social History Household Members: Family Housing: House Do you presently have visiting nurse or other home services: No Alcohol intake: current Alcohol intake frequency: a few times a week Alcohol type: beer, wine and hard liquor Comment: 2 days a week 2-3 glasses Patient Tobacco Use Status: Current everyday Tobacco user Tobacco use type: Cigarette Cigarette Packs Per Day: 0.5 Cigarettes Per Day: 6 Years Smoked: started 13 years/old e-Cigarette/Vaping Use: Never Used Second Hand Smoke Exposure: Yes Substance Use Type: Crack/Cocaine Advance Directives Date on File: 11/04/21 service: No Current occupational status: employed Sexual orientation: Straight/Heterosexual Gender identity: Female Cognitive needs: No Hearing needs: No Vision needs: Yes Female Reproductive History Menstrual Age of Menarche: 12 Questionnaire PHQ-9 Over the last 2 weeks, how often have you been bothered by any of the following problems? 1. Little interest or pleasure in doing things: not at all 2. Feeling down, depressed, or hopeless: nearly every day 3. Trouble falling or staying asleep, or sleeping too much: nearly every day 4. Feeling tired or having little energy: nearly every day 5. Poor appetite or overeating: nearly every day 6. Feeling bad about yourself - or that you are a failure or have let yourself or your family down: not at all 7. Trouble concentrating on things, such as reading the newspaper or watching television: not at all 8. Moving or speaking so slowly that other people could have noticed. Or the opposite - being so fidgety or restless that you have been moving around a lot more than usual: not at all 9. Thoughts that you would be better off or of hurting yourself in some way: not at all Total score: 12 Depression Screening Interpretation: Positive Depression Screening Done: Yes 30375 - PHQ-9 Billing: Yes Source: Developed by Drs. Marv Cantrell, Divine Melgoza, Thai Moore and colleagues, with an educational mariann from [employer]. Thrive Questionnaire Date Thrive assessed: 07/11/24 I am a: Patient What is your living situation today?: I have a steady place to live Within the past 12 months, did the food you bought not last and you didn't have the money to get more?: I choose not to answer this question Within the past 12 months, did you worry whether your food would run out before you got money to buy more?: I choose not to answer this question Do you have trouble paying for medicines?: I choose not to answer this question Do you have trouble getting transportation to medical appointments?: I choose not to answer this question Do you have trouble paying your heating and electricity bill?: I choose not to answer this question Do you have trouble taking care of your child, family member or friend?: I choose not to answer this question Do you have trouble with day-to-day activities such as bathing, preparing meals, shopping, managing finances, etc.?: I choose not to answer this question Are you currently unemployed and looking for a job?: I choose not to answer this question Are you interested in more education?: I choose not to answer this question Please select the resources that you would like help with: None Currently or been in a relationship where the following occur: I choose not to answer THRIVE Score: 0 AUDIT C Alcohol Use Questionnaire (AUDIT-C) 1. How often do you have a drink containing alcohol?: 2-3 times a week Total Score: 3 LAINA-7 AMB Questionnaire LAINA-7 Date LAINA - 7 assessed: 07/11/24 Feeling nervous, anxious, or on edge: 0 = Not at all Not being able to stop or control worryin = Not at all Worrying too much about different things: 0 = Not at all Trouble relaxin = Not at all Being so restless that it is hard to sit still: 0 = Not at all Becoming easily annoyed or irritable: 0 = Not at all Feeling afraid as if something awful might happen: 0 = Not at all Total LAINA-7 score (0-4 normal; 5-9 mild; 10-14 moderate; 15-21 severe): 0 Source: Developed by Drs. Marv Cantrell, Thai Reyoenke and colleagues, with an educational mariann from [employer]. Physical exam (Primary Care) Vital Signs: Last Vital Signs Pulse 71 10/17/24 15:52 BP 122/62 10/17/24 15:52 Pulse Ox 97 10/17/24 15:52 Oxygen Delivery Method Room Air 10/17/24 15:52 BMI result Body Mass Index 21.0 Tobacco/Smoking Status: Tobacco use Status Tobacco use date assessed 07/11/24 10/17/24 15:57 Patient Tobacco Use Status Current everyday Tobacco 10/17/24 15:57 Tobacco use type Cigarette 10/17/24 15:57 e-Cigarette/Vaping Use Never Used 10/17/24 15:57 PHQ-9: PHQ-9 Score PHQ-9: Total score 12 10/17/24 16:20 Depression Screening Interpretation: Positive Thrive Assessment: Date of Thrive Assessment Date Thrive assessed 07/11/24 10/17/24 15:57 Currently or been in a relationship where the following occur: I choose not to answer Const General: alert; No acute distress Eyes Conjunctivae: conjunctivae normal Resp Auscultation: clear to auscultation bilaterally Cardio Rate: regular rate Rhythm: regular rhythm GI Inspection: Yes normal to inspection Extrem General: Yes normal to inspection and No edema Coding Level of Care Code Est Pt Level 4 (80657) Complex EM visit Add On G2211 Diagnoses Tobacco abuse Z72.0 Gastroesophageal reflux disease without esophagitis K21.9 Esophagitis presence: without esophagitis Hypercholesterolemia E78.00 Generalized anxiety disorder F41.1 Cough R05.9 Additional Codes PHQ-9 - 28929 - PHQ-9 Billing: Yes ([id number]) Assessment & Plan Assessment & Plan (1) Tobacco abuse: Code(s): Z72.0 - Tobacco use Category: Medical Plan: Strongly advised to stop smoking! (2) GERD (gastroesophageal reflux disease): Code(s): K21.9 - Gastro-esophageal reflux disease without esophagitis Category: Medical Qualifiers: Esophagitis presence: without esophagitis Qualified Code(s): K21.9 - Gastro-esophageal reflux disease without esophagitis Plan: Patient is strongly advised to stop smoking! Avoid the foods that causes that usually spicy foods, tomato products, juices, coffee, soda and foods that your sensitive to. After eating do not lie down, allow 3-4 hours before in lie down. And keep the head of bed above 30 degrees to avoid the acid from going up. Patient is on omeprazole 20 mg once a day (3) Hypercholesterolemia: Code(s): E78.00 - Pure hypercholesterolemia, unspecified Category: Medical Plan: Avoid fried foods, chicken skin, eggs, butter margarine, pastries and meat. Be it pork or beef they have a lot of cholesterol LDL goal of less than 130 and triglyceride of less than 150 (4) Generalized anxiety disorder: Comment: [facility] counselling Q week Mireya(declined 09/2023 Code(s): F41.1 - Generalized anxiety disorder Category: Medical Plan: Continue with counseling and therapy on alprazolam Bue per prior on (5) Cough: Code(s): R05.9 - Cough, unspecified Category: Medical Plan History of Present Illness The patient is a 59-year-old female presenting for follow-up on her chronic conditions and a persistent cough, which she describes as recurring for the past month and a half. She denies having fever, sore throat, or postnasal drip but feels wheezy, and occasionally uses a nebulizer from previous asthma management. The patient has been diagnosed with GERD and takes omeprazole daily for control. She is managing hypercholesterolemia through counseling, with a focus on reducing LDL and triglyceride levels. Additionally, she receives treatment for jealous anxiety disorder but finds counseling unhelpful. The patient's lifestyle factors include chronic tobacco use, which complicates asthma and presents challenges to managing her respiratory symptoms. She visited the emergency department in August for chest pain attributed to a muscle strain. Plans are in place for a gastrointestinal evaluation, with an EGD and colonoscopy scheduled due to her condition and history, noting her last colonoscopy was in 2015. Her mammogram is relatively current, completed in September 2024, and shows no new concerns. Health Maintenance - GERD management with daily omeprazole 20 mg. - Hypercholesterolemia counseling with an LDL goal <130 mg/dL and triglycerides <150 mg/dL. - Recent normal mammogram (September 2024). - Scheduled Esophagogastroduodenoscopy and colonoscopy. - Advised continuation of smoking cessation efforts. - Blood work indicating normal counts and electrolytes, renal, liver function; elevated triglycerides noted. Social History - Chronic smoker with reduced capacity from previous habits. - History of asthma from childhood; uses nebulizer occasionally. - No current counseling support for jealousy-related anxiety disorder. - Expressed dissatisfaction with current smoking habits and efforts to quit are ongoing. Review of Systems - Respiratory: Reports chronic cough with occasional wheezing; denies fever or sore throat. - Gastrointestinal: Reports chronic GERD symptoms, managed on omeprazole; awaiting colonoscopy. 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 - Musculoskeletal: Recent history of chest muscle strain. Physical Exam - Respiratory- Stated wheezing reported, but no audible wheezing noted on examination. - Mouth and Throat- Visual inspection during the examination; no noted abnormalities. Results - Labs: Blood count, electrolytes, renal function, sugar, and liver function all normal; Triglycerides elevated. - Tests: Recent mammogram ? normal (September 2024). Plan To manage the persistent cough potentially associated with asthma, an inhaler will be provided, alongside commencing allergy medication to mitigate allergic factors. A scheduled lung function test will assist in evaluating asthma severity, instructing no inhaler usage within eight hours prior for accuracy. GERD management stays consistent with omeprazole, while gastrointestinal evaluation through EGD and colonoscopy remains pending. Hypercholesterolemia is addressed through continuous dietary counseling, noting recent elevated triglyceride levels. The need for smoking cessation was emphasized due to its impact on respiratory health and asthma, while ongoing anxiety treatment with current medication continues. Encouraged engagement in counseling if patient openness allows. Patient was informed and verbally consented to the use of an ambient scribe for clinic note documentation during this visit. Discussion Notes During the consultation, I explained the cough's potential links to asthma exacerbated by allergies and smoking, initiating an inhaler and allergy medication. I detailed the purpose of the lung function test, emphasizing instructions to avoid inhaler use before testing. GERD management through omeprazole and pending gastrointestinal procedures were reviewed. Discussed strategies to achieve cholesterol targets with lifestyle changes, remarking on elevated triglycerides. Encouraged smoking cessation, correlating its impact with respiratory conditions. Anxiety is controlled with existing medications, though counseling reassessment is encouraged. Discussed the necessity for regular monitoring and periodic evaluations, aligning treatments with diagnostic results. Patient Instructions - Use the inhaler as instructed, especially during severe coughing or wheezing periods. - Begin allergy medication once a day to help manage symptoms. - Prepare for the lung function test by not using the inhaler 8 hours prior. - Continue taking omeprazole for GERD as prescribed. - Attend scheduled EGD and colonoscopy for comprehensive gastrointestinal evaluation. - Maintain cholesterol management strategies and retest triglyceride levels when suggested. - Make concerted efforts to quit smoking, given health risks and benefits outlined. - Adhere to alprazolam and bupropion for anxiety management, exploring counseling options as needed. - Report any new symptoms or concerns promptly and keep scheduled follow-ups. Orders: Orders PFT pulmonary function test Today R05.9 - Cough, unspecified Medications: New albuterol sulfate 90 mcg/actuation (Ventolin HFA) 2 puffs inhalation Q6H PRN 8.5 grams 0RF shortness of breath or wheezing R05.9 - Cough, unspecified fexofenadine (Carrie Allergy) 180 mg PO DAILY 30 tabs 0RF R05.9 - Cough, unspecified Refilled omeprazole 20 mg PO DAILY 90 caps 1RF 90 days K21.9 - Gastro-esophageal reflux disease without esophagitis
== END 2024-10-17 16:32 | disposition home or self-care (01) ==
LOC: HO.HMCH 15:45
PROVIDERS: PCP Internal Medicine; Visit Provider Internal Medicine
DX: Z72.0 Tobacco use (principal); K21.9 Gastro-esophageal reflux disease without esophagitis; E78.00 Pure hypercholesterolemia, unspecified; F41.1 Generalized anxiety disorder; R05.9 Cough, unspecified

== ENCOUNTER → 2024-10-17 15:44 | Outpatient (BNVA) | payer OTHER, SELFPAY | PROVIDERS: PCP Internal Medicine; Visit Provider Internal Medicine | DX: R05.9 Cough, unspecified (principal); K21.9 Gastro-esophageal reflux disease without esophagitis; E78.00 Pure hypercholesterolemia, unspecified; F41.1 Generalized anxiety disorder; Z79.899 Other long term (current) drug therapy; Z72.0 Tobacco use | CPT/HCPCS: 96127; 99212 ==

== ENCOUNTER 2024-11-03 09:58 | Outpatient (AMB) | payer OTHER, SELFPAY ==
--- NOTE | 2024-11-03 10:27 | A.OFFPC_ITS ---
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 Machine Required: No Accompanied by: Self / Same As Patient Allergies morphine [MORPHINE] Allergy (Intermediate, Verified 11/03/24 10:27) VOMITING Penicillins [PENICILLINS] Allergy (Intermediate, Verified 11/03/24 10:27) RASH Medication List - Last Reconciled 11/03/24 by Barbara Bledsoe MD albuterol sulfate 90 mcg/actuation (Ventolin HFA) 2 puffs inhalation Q6H PRN alprazolam 0.25 mg PO DAILY bisacodyl (Dulcolax (bisacodyl)) 20 mg (4 x 5 mg) PO ONCE 1 day bupropion HCl 75 mg PO DAILY cholecalciferol (vitamin D3) 50 mcg PO DAILY 90 days cyproheptadine 4 mg PO .qd 30 days docusate sodium (Colace) 100 mg PO DAILY fexofenadine (Carrie Allergy) 180 mg PO DAILY labetalol 100 mg PO BID 90 days meloxicam 7.5 mg PO DAILY methocarbamol 750 mg PO BEDTIME PRN nifedipine ER 30 mg PO DAILY omeprazole 20 mg PO DAILY 90 days polyethylene glycol 3350 (Miralax) 238 grams PO ONCE rizatriptan 10 mg PO .QD PRN 30 days triamcinolone acetonide 0.5% 1 appl topical BID Tobacco use date assessed: 07/11/24 Dental Screening Dental Screen Date: 07/11/24 [facility] Medical History (Updated 11/03/24 @ 11:18 by Barbara Bledsoe MD) Hypertension Benign positional vertigo Neck pain Unsatisfactory cervical Papanicolaou smear Encounter for repeat Pap smear due to previous insufficient cervical cells Dysplasia of cervix, low grade (MAGALY 1) Upper back pain Annual physical exam Hyperkalemia Dyspareunia UTI (urinary tract infection) Dysuria Vitamin D deficiency Constipation Tobacco abuse Hypercholesterolemia GERD (gastroesophageal reflux disease) Migraine Surgical History S/P laparoscopic cholecystectomy Hx of cholecystectomy History of removal of ovarian cyst Family History Father CVD (cardiovascular disease) Stroke FH: prostate cancer Mother Diabetes CVD (cardiovascular disease) Hypertension Sister Cancer Breast carcinoma Maternal Aunt Cancer Maternal Grandmother CVD (cardiovascular disease) Brother Substance abuse CVD (cardiovascular disease) Brother Colon cancer Social History (Updated 11/03/24 @ 11:20 by Barbara Bledsoe MD) Household Members: Family Housing: House Do you presently have visiting nurse or other home services: No Alcohol intake: current Alcohol intake frequency: a few times a week Alcohol type: beer, wine and hard liquor Comment: 2 days a week 2-3 glasses Patient Tobacco Use Status: Current everyday Tobacco user Tobacco use type: Cigarette Cigarette Packs Per Day: 0.5 Cigarettes Per Day: 10 Years Smoked: started 13 years/old e-Cigarette/Vaping Use: Never Used Second Hand Smoke Exposure: Yes Substance Use Type: Crack/Cocaine Advance Directives Date on File: 11/04/21 service: No Current occupational status: employed Sexual orientation: Straight/Heterosexual Gender identity: Female Cognitive needs: No Hearing needs: No Vision needs: Yes Female Reproductive History Menstrual Age of Menarche: 12 Questionnaire Thrive Questionnaire Date Thrive assessed: 07/11/24 LAINA-7 AMB Questionnaire LAINA-7 Date LAINA - 7 assessed: 07/11/24 Source: Developed by Drs. Marv Cantrell, Divine Melgoza, Thai Moore and colleagues, with an educational mariann from [employer]. Review of Systems Const Denies poor appetite and Denies weakness Eyes Denies no additional complaints ENT Reports Normal hearing present, Denies dizziness, Denies nasal congestion, Denies tinnitus and Denies sore throat Card Denies chest pain, Denies syncope, Denies rapid heart rate and Denies dyspnea Resp Denies cough and Denies dyspnea GI Denies change in stool character, Reports constipation, Denies diarrhea, Denies nausea and Denies vomiting Denies urinary frequency, Denies difficulty voiding and Denies dysuria Neuro Reports Normal hearing present, Denies confusion, Denies dizziness, Denies syncope and Denies weakness Psych Denies confusion Physical exam (Primary Care) Vital Signs: Last Vital Signs Temp 97.1 F 11/03/24 10:38 Pulse 76 11/03/24 10:38 BP 150/70 H 11/03/24 10:38 Pulse Ox 97 11/03/24 10:38 Oxygen Delivery Method Room Air 11/03/24 10:38 BMI result Body Mass Index 21.1 Tobacco/Smoking Status: Tobacco use Status Tobacco use date assessed 07/11/24 11/03/24 10:29 Patient Tobacco Use Status Current everyday Tobacco 11/03/24 11:20 Tobacco use type Cigarette 11/03/24 11:20 e-Cigarette/Vaping Use Never Used 11/03/24 11:20 Thrive Assessment: Date of Thrive Assessment Date Thrive assessed 07/11/24 11/03/24 10:29 Const General: alert and awake; No confusion Orientation/consciousness: No confusion HENMT Head: Yes normocephalic Ears: external ears normal and TM's normal bilaterally Face and sinus: Yes normal facial exam Mouth: moist mucous membranes Throat: Yes tonsils normal Eyes Conjunctivae: conjunctivae normal Pupils: Equal, round and reactive pupils present and Pupil accommodation reflex normal Direct Ophthalmoscopy: normal light reflex Neck Neck: No lymphadenopathy Thyroid: Thyroid normal Chest Chest palpation & inspection: normal inspection of the chest Resp Effort & Inspection: normal respiratory effort and no audible wheezes Auscultation: clear to auscultation bilaterally, no crackles, no wheezes and lung sounds not diminished Cardio Rate: regular rate Rhythm: regular rhythm Peripheral pulses: radial pulses present and dorsalis pedis present GI Palpation (GI): no masses Auscultation: normal bowel sounds and normoactive bowel sounds Rectal Exam - Female: deferred Skin General skin exam: no rashes or lesions noted Rashes: no rashes Neuro General: deep tendon reflexes 2+ bilaterally and No confusion Cranial nerves: Yes Equal, round and reactive pupils present, Yes Midline tongue present, Yes Normal hearing present and Yes Ability to bilaterally elevate shoulders present Cognition (Neuro): normal cognition Gait exam (Neuro): Normal gait present Motor exam (neuro): 5/5 motor strength present throughout Deep tendon reflexes (DTR's): Right brachioradialis reflex intensity grade: 2+, Left brachioradialis reflex intensity grade: 2+, Right patellar reflex intensity grade: 2+ and Left patellar reflex intensity grade: 2+ Extrem General: No edema Coding Level of Care Code Est Pt Prev Care 40-64y(83071) Diagnoses Annual physical exam Z00.00 Tobacco abuse Z72.0 Gastroesophageal reflux disease without esophagitis K21.9 Esophagitis presence: without esophagitis Hypercholesterolemia E78.00 Generalized anxiety disorder F41.1 Hypertension I10 Assessment & Plan Assessment & Plan (1) Annual physical exam: Code(s): Z00.00 - Encounter for general adult medical examination without abnormal findings Category: Medical Plan: Patient is advised to eat healthy, keep well hydrated, keep active and have adequate sleep. (2) Tobacco abuse: Code(s): Z72.0 - Tobacco use Category: Medical Plan: Patient is strongly advised to stop smoking (3) GERD (gastroesophageal reflux disease): Code(s): K21.9 - Gastro-esophageal reflux disease without esophagitis Category: Medical Qualifiers: Esophagitis presence: without esophagitis Qualified Code(s): K21.9 - Gastro-esophageal reflux disease without esophagitis Plan: Avoid the foods that causes that usually spicy foods, tomato products, juices, coffee, soda and foods that your sensitive to. After eating do not lie down, allow 3-4 hours before in lie down. And keep the head of bed above 30 degrees to avoid the acid from going up. (4) Hypercholesterolemia: Code(s): E78.00 - Pure hypercholesterolemia, unspecified Category: Medical Plan: Avoid fried foods, chicken skin, eggs, butter margarine, pastries and meat. Be it pork or beef they have a lot of cholesterol (5) Generalized anxiety disorder: Comment: [facility] counselling Q week Mireya(declined 09/2023 Code(s): F41.1 - Generalized anxiety disorder Category: Medical Plan: Continue with counseling and therapy (6) Hypertension: Code(s): I10 - Essential (primary) hypertension Category: Medical Plan History of Present Illness The patient is a 59-year-old female presenting for a wellness examination. She has ongoing management for Gastroesophageal Reflux Disease (GERD) and regularly experiences heartburn, for which she uses omeprazole 20 mg. She has a documented history of migraines, but specifics about current frequency or treatment efforts were not discussed during this visit. Her medical record shows a previous evaluation of hypercholesterolemia, with plans to reassess with fasting tests. She manages her hypertension with labetalol and nifedipine, although her blood pressure was high at this visit. Anxiety disorder is addressed with alprazolam and bupropion. The patient continues to smoke, describing her use as excessive, which represents a significant risk given her family history of heart issues and cancer. Despite stopping the nicotine patch, the amount smoked remains substantial. Her last colonoscopy was in 2015, and no new gastrointestinal interventions have been initiated. She drinks alcohol occasionally but denies significant use. Additionally, she has been advised to manage her constipation using Colace effectively. No overt gastrointestinal issues aside from periodic heartburn were reported. Health Maintenance - Mammogram is up to date as of September 2024. - Last cholesterol check in February 2024 with an upcoming requisition for a fasting cholesterol test. - Previous colonoscopy conducted in 2015, with consideration to repeat given family history of colon cancer. - Advised to stop smoking due to significant risks, including potential lung cancer and cardiovascular complications. - Noted ongoing use of vitamin supplements and BRENDON patch cessation, with encouragement to quit smoking. - Blood pressure monitoring encouraged. - Vaccinations reviewed: Up-to-date on shingles, tetanus, and pneumonia vaccinations. - Agreement to enroll in a lung cancer screening program due to extended smoking history. Social History - Significant smoker: Previously utilized a nicotine patch, currently smoking a substantial amount, described as too much. - Alcohol consumption: Occasional, predominantly on weekends, approximately two to three drinks at a time. - Family history notable for cardiac problems and cancer, particularly colon cancer in a half-brother. - No current participation in therapy despite a history of generalized anxiety disorder. - No occupational details discussed. Review of Systems - Gastrointestinal: Reports occasional heartburn, denies problems with swallowing. - Pulmonary: Denies shortness of breath, cough. - Cardiovascular: Denies chest pain, edema. - Neurological: Denies headaches, no new neurologic symptoms. - General: Denies fever, chills, sweating. - Ears, eyes, nose, throat: No visual problems reported, no eye examination in last two years, denies hearing loss. Physical Exam General: Cooperative, healthy appearing, comfortable, no acute distress and well developed Orientation: Patient oriented x3 Limitations: No limitations Head: Normal to inspection Ears: Hearing grossly normal bilaterally Nose: Normal external nose present Face and sinus: Normal facial exam Eyes: Appearance normal, both eyes and all related structures Neck: Normal visual inspection and Yes full ROM Respiratory: Normal respiratory effort and able to speak in complete sentences. Clear to auscultation bilaterally Cardiovascular: Regular rate and rhythm. Normal S1 and S2 GI: Normal to inspection. Soft to palpation and nontender Skin: No rashes or lesions noted Neuro: Patient oriented x3 Extremities: Normal to inspection Results - Labs: Previous normal blood count, electrolytes, renal function, blood sugar, and liver function as of August. - Tests/Diagnostics: Patient declined rectal examination for occult blood. Plan During this visit, I addressed smoking cessation with the patient and advised its importance considering her high risk for cardiovascular diseases and cancer due to her smoking habit and family history. Guidelines for smoking cessation support were discussed. Her hypertension remains managed with labetalol and nifedipine, but she is directed to frequently monitor her blood pressure at home due to a high reading. She needs to obtain a fasting lipid panel to reassess her hypercholesterolemia. Her GERD is managed with omeprazole, although she experiences episodic heartburn. I recommended lung cancer screening CT due to her significant smoking history, and the patient consented. She was encouraged to consider a follow-up colonoscopy given her family history of colon cancer. Patient denied new efforts towards anxiety management or therapeutic interventions despite known generalized anxiety disorder. Patient was informed and verbally consented to the use of an ambient scribe for clinic note documentation during this visit. Discussion Notes I discussed the implications of continued smoking on her health and advocated for cessation strategies, detailing the impact on cardiovascular and cancer risks. We went over her blood pressure management plan, emphasizing home monitoring given her current reading, and highlighted the importance of consistent medication intake. We settled on obtaining a fasting lipid panel for cholesterol reassessment, given the lapse since her last measurement. I outlined the benefit of engaging in lung cancer screening, which she agreed to, as she's at elevated risk. Guidance towards gastrointestinal health vigilant in light of her family history, notably the need for timely colonoscopies, was also part of our discussion. The importance of wellness vigilance, particularly by sustaining vaccination standards and attending routine screenings, completed our dialogue. Patient Instructions - Stop smoking; consider nicotine replacement therapies or support groups to aid cessation. - Monitor blood pressure at home and keep a log; follow medication regimen as instructed. - Schedule a fasting lipid panel to reassess cholesterol levels. - Adhere to GERD management with current medication; avoid trigger foods. - Keep follow-up appointments, including lung cancer screening as scheduled. - Continue medication for anxiety disorder as prescribed. - Maintain regular dental and eye exams. - Seek immediate medical care if experiencing worsening symptoms such as chest pain or shortness of breath. Orders: Orders Vitamin D 25-OH Total Today Z72.0 - Tobacco use Thyroid Stimulating Hormone Today Z72.0 - Tobacco use Free T4 (Free Thyroxine) Today Z72.0 - Tobacco use Comprehensive Met. Panel Today Z72.0 - Tobacco use Vitamin B12 and Folate Today Z72.0 - Tobacco use Referrals Lung Cancer Screening Referral Z72.0 - Tobacco use
[2024-11-03 10:38] VITALS: BP 150/70; PULSE 76; TEMP 36.2; O2SAT 97; BMI 21.1
== END 2024-11-03 11:31 | disposition home or self-care (01) ==
LOC: HO.HMCH 09:58
PROVIDERS: PCP Internal Medicine; Visit Provider Internal Medicine
DX: Z00.00 Encounter for general adult medical examination without abnormal findings (principal); Z72.0 Tobacco use; K21.9 Gastro-esophageal reflux disease without esophagitis; E78.00 Pure hypercholesterolemia, unspecified; F41.1 Generalized anxiety disorder; I10 Essential (primary) hypertension

== ENCOUNTER → 2024-11-03 09:58 | Outpatient (BNVA) | payer OTHER, SELFPAY | PROVIDERS: PCP Internal Medicine; Visit Provider Internal Medicine | DX: Z00.00 Encounter for general adult medical examination without abnormal findings (principal); K21.9 Gastro-esophageal reflux disease without esophagitis; E78.00 Pure hypercholesterolemia, unspecified; I10 Essential (primary) hypertension; F41.1 Generalized anxiety disorder; F17.210 Nicotine dependence, cigarettes, uncomplicated; Z79.899 Other long term (current) drug therapy | CPT/HCPCS: 99396 ==

== ENCOUNTER 2024-11-27 10:56 | Outpatient (REF) | payer OTHER, SELFPAY ==
--- NOTE | 2024-11-27 11:01 | PFT_ITS ---
Flows: FEV1: 74 % of predicted at 1.66 L FVC: 97 % of predicted at 2.72 L FEV1/FVC: 61 % Bronchodilator response: Absent Volumes: Total lung capacity: 97 % of predicted at 4.44 L Residual volume: 116 % of predicted at 1.82 L Slow vital capacity: 86 % of predicted at 2.62 L Expiratory reserve volume: 38 % of predicted at 0.27 L Diffusion capacity: Mildly decreased. Impression: Moderate obstructive ventilatory defect with no bronchodilator response. Decreased diffusion capacity suggests emphysema. MTDD
[2024-11-27 11:41] VITALS: PULSE 75; O2SAT 98
== END 2024-11-27 10:57 | disposition home or self-care (01) ==
LOC: HO.RESP 10:56
PROVIDERS: PCP Internal Medicine; Visit Provider Internal Medicine
DX: R05.9 Cough, unspecified (principal)
CPT/HCPCS: 94010; 94640; 94727; 94729

== ENCOUNTER → 2024-11-27 11:01 | Outpatient (BNV) | payer OTHER, SELFPAY | PROVIDERS: PCP Internal Medicine; Visit Provider Internal Medicine Pulmonary Disease | DX: R05.9 Cough, unspecified (principal) | CPT/HCPCS: 94060; 94727; 94729 ==

== ENCOUNTER 2025-01-27 15:04 | Outpatient (AMB) | payer OTHER, SELFPAY ==
--- NOTE | 2025-01-27 15:05 | A.OFFVIS_ITS ---
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 Denies any urinary symptoms. Currently not sexually active. Denies any vaginal dryness or irritation. STI testing offered; she declines. Attempting to eat a healthy diet with calcium and vitamin D and stays active with exercise. Last pap smear; 2023, negative. Last mammogram; 2024. Colonoscopy waiting for appt. to be booked. Family history of breast and colon cancer. Smoker half a pack per day, no plans to quit. [facility] Medical History (Updated 01/27/25 @ 15:43 by Jennifer Shah CNM) Urinary urgency Urgency incontinence Uterine prolapse Nicotine dependence, cigarettes, uncomplicated Hypertension Benign positional vertigo Neck pain Unsatisfactory cervical Papanicolaou smear Dysplasia of cervix, low grade (MAGALY 1) Upper back pain Hyperkalemia Dyspareunia Dysuria Vitamin D deficiency Constipation Hypercholesterolemia GERD (gastroesophageal reflux disease) Migraine Surgical History S/P laparoscopic cholecystectomy Hx of cholecystectomy History of removal of ovarian cyst Family History Father CVD (cardiovascular disease) Stroke FH: prostate cancer Mother Diabetes CVD (cardiovascular disease) Hypertension Sister Cancer Breast carcinoma, Onset Age: 25 Maternal Aunt Cancer Maternal Grandmother CVD (cardiovascular disease) Brother Substance abuse CVD (cardiovascular disease) Brother Colon cancer, Onset Age: 56 Social History Household Members: Family Housing: House Do you presently have visiting nurse or other home services: No Alcohol intake: current Alcohol intake frequency: a few times a week Alcohol type: beer, wine and hard liquor Comment: 2 days a week 2-3 glasses Patient Tobacco Use Status: Current everyday Tobacco user Tobacco use type: Cigarette Cigarette Packs Per Day: 0.5 Cigarettes Per Day: 10 Years Smoked: started 13 years/old e-Cigarette/Vaping Use: Never Used Second Hand Smoke Exposure: Yes Substance Use Type: Crack/Cocaine Advance Directives Date on File: 11/04/21 service: No Current occupational status: employed Sexual orientation: Straight/Heterosexual Gender identity: Female Cognitive needs: No Hearing needs: No Vision needs: Yes Female Reproductive History Menstrual Age of Menarche: 12 control method: none Total pregnancies: 2 Full term: 1 Ab spontaneous: 1 Date of last pap smear: 08/21/23 (negative pap smear, negative hpv ) History of STI: Yes (genital warts) Date of Mammogram: 10/02/24 (bi rad 1) Review of Systems Const All systems reviewed & are unremarkable except as noted in HPI and below Reports as per HPI Eyes Reports no additional complaints ENT Reports no additional complaints Card Reports no additional complaints Resp Reports no additional complaints GI Reports as per HPI and Reports no additional complaints Reports as per HPI Musc Reports no additional complaints Skin/Breast Reports as per HPI Neuro Reports no additional complaints Psych Reports no additional complaints Endo Reports no additional complaints Beny/Lymph Reports no additional complaints Aller/Immun Reports no additional complaints Physical Exam Vital Signs: Last Vital Signs BP 120/74 01/27/25 15:11 BMI result Body Mass Index 21.9 Const General: cooperative, healthy appearing, no acute distress, well developed and alert Orientation/consciousness: patient oriented x3 HEENT Head: Yes normal to inspection Eyes General: appearance normal, both eyes and all related structures Neck Neck: Yes normal visual inspection Thyroid: Thyroid normal Chest Chest palpation & inspection: normal inspection of the chest and other (no puckering, dimpling, peau de orange, retraction, discharge, masses) Breast/axilla inspection: normal inspection of the breasts Breast/axilla palpation: normal palpation of the breasts Resp Effort & Inspection: normal respiratory effort GI Inspection: Yes normal to inspection Palpation (GI): Soft to palpation Rectal Exam - Female: deferred General: Yes bladder normal to palpation External Female Exam: normal external appearance and normal appearance of the urethra Speculum Exam - Vagina: normal appearance of the vagina, normal palpation, normal vaginal discharge and vagina atrophic Speculum Exam - Cervix: normal appearance of the cervix and normal palpation Bimanual exam- vagina & uterus: normal bimanual exam, normal palpation, uterine size normal, bladder normal to palpation, normal palpation and non-tender Bimanual Exam- Adnexa, other: no masses, cystocele and Other (prolapse) Skin General skin exam: no rashes or lesions noted Rashes: no rashes Neuro General: patient oriented x3 Cognition (Neuro): normal cognition Extrem General: Yes normal to inspection Psych Attitude: cooperative Thought process: Normal thought process present Assessment & Plan Assessment & Plan (1) Encounter for well woman exam with routine gynecological exam: Code(s): Z01.419 - Encounter for gynecological examination (general) (routine) without abnormal findings Category: Medical Plan: Discussed: Current recommendations for pap smears per ASCCP guidelines. Breast awareness, periodic self breast exams and yearly mammogram. Maintain a healthy lifestyle, well balanced diet including Calcium 1,200 mg and Vitamin D 600 IU daily, and routine exercise. Contact the office with any postmenopausal bleeding. Patient verbalizes understanding and agrees to the plan of care. She was given opportunity to ask questions and all questions were answered to the best of my ability. RTO in 1 year for annual obstetrics and gynecology professor exam. This note is constructed using voice recognition software. While every effort has been made to ensure accuracy, picking crew supervisor errors may have been included. (2) Uterine prolapse: Code(s): N81.4 - Uterovaginal prolapse, unspecified Category: Medical Plan: Referral placed to [facility] urogynecology department. Discussed physical findings today with uterine prolapse. Patient is concerned and would like to have evaluation and treatment options. The patient expressed understanding and agreement with the plan of care. All of her questions and concerns were addressed to the best of my ability. Total time I personally spent on visit and management today: ?15 minutes. Time spent included review of pertinent office notes in the electronic health record; review of laboratory and imaging results; review of personal family medical history; performing physical exam; discussing diagnosis and plan of care with the patient; documenting the encounter in the EMR. (3) Urgency incontinence: Code(s): N39.41 - Urge incontinence Category: Medical Plan: See orders. (4) Urinary urgency: Code(s): R39.15 - Urgency of urination Category: Medical Plan: UA clean-catch reflex order placed. Plan The patient expressed understanding and agreement with the plan of care. All of her questions and concerns were addressed to the best of my ability. This note is constructed using voice recognition software. While every effort has been made to ensure accuracy, picking crew supervisor errors may have been included. Orders: Orders UA CC w/rflx Micro + Cult Today N39.41 - Urge incontinence, N81.4 - Uterovaginal prolapse, unspecified, R39.15 - Urgency of urination, Z01.419 - Encounter for gynecological examination (general) (routine) without abnormal findings Referrals Urogynecology Referral N39.41 - Urge incontinence, N81.4 - Uterovaginal prolapse, unspecified, R39.15 - Urgency of urination Coding Level of Care Code Est Pt Level 2 (72265) Est Pt Prev Care 40-64y(77883) Diagnoses Encounter for well woman exam with routine gynecological exam Z01.419 Uterine prolapse N81.4 Urgency incontinence N39.41 Urinary urgency R39.15
[2025-01-27 15:11] VITALS: BP 120/74; BMI 21.9
== END 2025-01-27 15:51 | disposition home or self-care (01) ==
LOC: HO.HWS 15:04
PROVIDERS: PCP Internal Medicine; Visit Provider Advanced Practice Midwife
DX: Z01.419 Encounter for gynecological examination (general) (routine) without abnormal findings (principal); N81.4 Uterovaginal prolapse, unspecified; N39.41 Urge incontinence; R39.15 Urgency of urination
CPT/HCPCS: 99212; 99396; 99459

== ENCOUNTER → 2025-01-27 15:04 | Outpatient (BNVA) | payer OTHER, SELFPAY | PROVIDERS: PCP Internal Medicine; Visit Provider Advanced Practice Midwife | DX: Z01.419 Encounter for gynecological examination (general) (routine) without abnormal findings (principal); N81.4 Uterovaginal prolapse, unspecified; N39.41 Urge incontinence | CPT/HCPCS: 99212; 99396 ==

== ENCOUNTER 2025-01-30 10:59 | Outpatient (AMB) | payer OTHER, SELFPAY ==
--- NOTE | 2025-01-30 07:48 | A.OFFVIS_ITS ---
Intake Visit Reasons: LDCT Allergies morphine (MORPHINE) Allergy (Intermediate, Verified 01/27/25 15:12) VOMITING Penicillins (PENICILLINS) Allergy (Intermediate, Verified 01/27/25 15:12) RASH HPI HPI LDCT: Details: Initial visit for this 59yo smoker with a 22PYH. Patient started smoking at age 14 for 45 years at 1/2ppd. . Denies marijuana use. Denies second hand smoke exposure. Denies exposure to chemicals or substances like asbestos. . Denies known family history of lung cancer. Denies personal history of cancers. Denies chest CT in last year. . Denies recent travel outside the [place]. Denies recent respiratory illness or recent hospitalization for respiratory issues. Reports history testing positive for COVID -2023. Admits receiving COVID Vaccine. . Denies fever, chills, new/worsening cough, hemoptysis, hoarseness or dysphagia. Denies significant chest pain, significant dyspnea or unintentional weight loss. Patient Lung Cancer Screening Questionnaire reviewed with patient by provider. . Shared Decision Making Completed. Patient meets criteria. Discussed in detail with patient, the risk vs benefit of LDCT screening. Patient consents to proceed with scan. Discussed smoking cessation. [facility] Medical History (Updated 01/30/25 @ 11:45 by Sara Braga PA-C) DeBakey type IIIb dissection of aorta (~01/2024) Hypertension Hypercholesterolemia COPD (chronic obstructive pulmonary disease) Nicotine dependence, cigarettes, uncomplicated GERD (gastroesophageal reflux disease) Constipation History of Helicobacter pylori infection Uterine prolapse Urinary urgency Urgency incontinence Dysplasia of cervix, low grade (MAGALY 1) Benign positional vertigo Neck pain Migraine Vitamin D deficiency Generalized anxiety disorder Surgical History (Updated 01/30/25 @ 11:26 by Sara Braga PA-C) History of colonoscopy History of esophagogastroduodenoscopy (EGD) History of blepharoplasty History of left salpingo-oophorectomy History of laparoscopic cholecystectomy Family History Father CVD (cardiovascular disease) Stroke FH: prostate cancer Mother Diabetes CVD (cardiovascular disease) Hypertension Sister Cancer Breast carcinoma, Onset Age: 25 Maternal Aunt Cancer Maternal Grandmother CVD (cardiovascular disease) Brother Substance abuse CVD (cardiovascular disease) Brother Colon cancer, Onset Age: 56 Social History (Updated 01/30/25 @ 11:27 by Sara Braga PA-C) Household Members: Family Housing: House Do you presently have visiting nurse or other home services: No Alcohol intake: current Alcohol intake frequency: a few times a week Alcohol type: beer, wine and hard liquor Comment: 2 days a week 2-3 glasses Patient Tobacco Use Status: Current everyday Tobacco user Tobacco use type: Cigarette Cigarette Packs Per Day: 0.5 Years Smoked: (onset 14yo, 1/2ppd x 45yrs, 22pyh) e-Cigarette/Vaping Use: Never Used Second Hand Smoke Exposure: Yes Substance Use Type: Crack/Cocaine Advance Directives Date on File: 11/04/21 service: No Current occupational status: employed Sexual orientation: Straight/Heterosexual Gender identity: Female Cognitive needs: No Hearing needs: No Vision needs: Yes Female Reproductive History Menstrual Age of Menarche: 12 Assessment & Plan Assessment & Plan (1) Nicotine dependence, cigarettes, uncomplicated: Comment: (onset 14yo, 1/2ppd x 45yrs, 22pyh) Code(s): F17.210 - Nicotine dependence, cigarettes, uncomplicated Category: Medical Plan: - SDM visit completed today in office. - Patient meets criteria for LDCT for lung cancer screening purposes and is asymptomatic. - Smoking cessation counseling offered. Patients can always call [phone]. - Will arrange for a LDCT scan of the chest for screening purposes at [facility]. - Risks, benefits, and alternatives were discussed in detail and the patient agrees to proceed. - Risks discussed include but are not limited to: radiation exposure, anxiety during testing and while awaiting results, false negatives, false positives and possibility of additional intervention such as further imaging or surgical procedures for benign disease. - Benefits are obviously detection of lung cancer at an early stage which can lead to improved outcomes. - Discussed the importance of screening program compliance with adherence to yearly LDCT scan as scheduled - or sooner interval scans for personalized screening regimen. - Discussed follow up plan. Our office will send a letter discussing results and if needed set up phone call and office visit based on CT findings. - Patient educated on results categorization and the management decisions for suspicious findings potentially found on the screening LDCT scan. Any patient with a Lung RADS score of 3 or 4 will be reviewed by a multidisciplinary team at [facility] to form a plan of action in regards to scan findings. - If further work up is warranted for a suspicious lung finding this will be followed by the Lung Cancer Screening program in conjunction with the Thoracic Surgery Department at [facility]. - A copy of the office note and LDCT will be sent to the patient's PCP - as well as documentation on any associated further plans of care. - Incidental findings on LDCT are the PCP's responsibility. These findings are indicated with an S finding on the LDCT Assessment. A note discussing the findings will be sent to the PCP who is then responsible for further management. - All questions answered.? Coding Level of Care Code Lung Cancer Screening G0296 Diagnoses Nicotine dependence, cigarettes, uncomplicated F17.210
== END 2025-01-30 11:09 | disposition home or self-care (01) ==
LOC: HO.HPS 11:00
PROVIDERS: PCP Internal Medicine; Referring Provider Internal Medicine; Visit Provider Physician Assistant Medical
DX: F17.210 Nicotine dependence, cigarettes, uncomplicated (principal)
CPT/HCPCS: G0296

== ENCOUNTER 2025-01-30 11:09 | Outpatient (REF) | payer OTHER, SELFPAY ==
--- NOTE | ~2025-01-30 | CT_ITS ---
EXAMINATION: CT LUNG SCREENING HISTORY: F17.210 - Nicotine dependence, cigarettes, uncomplicated TECHNIQUE: Low dose axial images were obtained from the sternal notch to upper abdomen without IV contrast per standard departmental protocol. Sagittal and coronal reformatted images were also obtained and reviewed. One or more of the following techniques was used for dose reduction: Automated exposure control, adjustment of the mA and/or kV according to patient size, use of iterative reconstruction technique. DLP: 44 mGy-cm COMPARISON: Comparison is made with the prior examination dated 02/10/2024. FINDINGS: Lung nodules: There is biapical pleural and parenchymal scarring. 2-3 mm nodules are noted in the right upper lobe (series 5, images 24, 36, and 57). Emphysema: mild Coronary Calcification: none Aortic Arch Calcification: mild Potentially Significant Incidentals : none Additional Chest Findings: There is no pleural or pericardial effusion. No mediastinal or axillary lymphadenopathy is identified. Visualized upper abdomen: The visualized portions of the liver, spleen, and adrenals have an unremarkable unenhanced appearance. CT/CT lung screening IMPRESSION: No suspicious pulmonary nodules are identified. LUNG-RADS ASSESSMENT: Lung-RADS 2: Benign MANAGEMENT: Continue annual screening with LDCT in 12 months Category S: N/A Electronically signed by: Marv Urieb MD 02/05/2025 10:02 AM EDT
== END 2025-01-30 11:10 | disposition home or self-care (01) ==
LOC: HO.CT 11:09
PROVIDERS: PCP Internal Medicine; Visit Provider Physician Assistant Medical
DX: Z12.2 Encounter for screening for malignant neoplasm of respiratory organs (principal); F17.210 Nicotine dependence, cigarettes, uncomplicated
CPT/HCPCS: 71271; G0296

== ENCOUNTER → 2025-01-30 11:11 | Outpatient (BNV) | payer OTHER, SELFPAY | PROVIDERS: PCP Internal Medicine; Visit Provider Radiology Diagnostic Radiology | DX: F17.210 Nicotine dependence, cigarettes, uncomplicated (principal) | CPT/HCPCS: 71271 ==

== ENCOUNTER 2025-02-13 09:44 | Outpatient (AMB) | payer OTHER, SELFPAY ==
--- NOTE | 2025-02-13 09:53 | A.OFFPC_ITS ---
Vital Signs 02/13/25 09:54 Height 5 ft 2 in Weight 119 lb 6 oz BMI 21.8 BP 130/60 Blood Pressure Location Lt brachial Position Sitting Pulse 78 Pulse Source Pulse Oximeter Temp 97.1 F Temp Source Temporal Artery Scan Pulse Oximetry (%) 99 Oxygen Delivery Method Room Air Intake Visit Reasons: cough, tobacco abuse Allergies morphine (MORPHINE) Allergy (Intermediate, Verified 02/13/25 09:56) VOMITING Penicillins (PENICILLINS) Allergy (Intermediate, Verified 02/13/25 09:56) RASH Medication List - Last Reconciled 02/13/25 by Barbara Bledsoe MD albuterol sulfate 90 mcg/actuation (Ventolin HFA) 2 puffs inhalation Q6H PRN alprazolam 0.25 mg PO DAILY bisacodyl (Dulcolax (bisacodyl)) 20 mg (4 x 5 mg) PO ONCE 1 day bupropion HCl 75 mg PO DAILY cholecalciferol (vitamin D3) 50 mcg PO DAILY 90 days cyproheptadine 4 mg PO .qd 30 days docusate sodium (Colace) 100 mg PO DAILY fexofenadine (Carrie Allergy) 180 mg PO DAILY labetalol 100 mg PO BID 90 days meloxicam 7.5 mg PO DAILY methocarbamol 750 mg PO BEDTIME PRN nifedipine ER 30 mg PO DAILY omeprazole 20 mg PO DAILY 90 days polyethylene glycol 3350 (Miralax) 238 grams PO ONCE rizatriptan 10 mg PO .QD PRN 30 days triamcinolone acetonide 0.5% 1 appl topical BID Tobacco use date assessed: 02/13/25 Dental Screening Dental Screen Date: 02/13/25 Did you have a dental visit in the last 12 months?: Yes Did you have a dental problem in the last 6 months where you did not have access to dental care?: No Was dental information given to patient?: Patient has dentist HPI cough, tobacco abuse HPI Details History of Present Illness How are you so I was looking over your blood work do you think we need to get some follow up blood work on you because your triglyceride last time that we tested was terrible was too high okay and you are supposed to be eating better right okay yeah now you are still still I am seeing counseling right with Andre do you need any refill for your medication blood pressure is actually good and you can let the pharmacy just send it because I do refill it anyway okay yeah so yeah you owe me blood work actually I did make a request for cholesterol because yeah I was concerned about your cholesterol remember your triglyceride normally supposed to be 150 yours is 400 so let me just update this request okay and then we are checking your thyroid also how are you do things what are you going to do he is better now what happened he fell no is it like a month that verbalized swelling yeah yes it can swell one of your medications can one of your blood pressure medications can make it swell if the swelling is not bad we leave it alone. Nifedipine is a blood pressure medication okay it can get some swelling side effect okay but again it is a good medication for blood pressure so we do we leave it alone just that is why I always got my stinging on that the swelling maybe it is not bad okay yes there it is there is no that has nothing to do this is tendon no it is because the medication have side effects okay again it is a good blood pressure medication if the swelling is not bad we leave it alone for this no basically when you are sitting down prop your legs up and make sure you do exercise when I exercise I go to the step when I go first floor second floor I have to sit down for 5-10 minutes because I got a lot of pain here my goodness knee yeah are you having pain here yeah I do not know why. Well if it is both sides usually it is going to be arteries Health Maintenance Social History Review of Systems Physical Exam Results Plan Patient was informed and verbally consented to the use of an ambient scribe for clinic note documentation during this visit. Discussion Notes Patient Instructions [facility] Medical History DeBakey type IIIb dissection of aorta (~01/2024) Hypertension Hypercholesterolemia COPD (chronic obstructive pulmonary disease) Nicotine dependence, cigarettes, uncomplicated GERD (gastroesophageal reflux disease) Constipation History of Helicobacter pylori infection Uterine prolapse Urinary urgency Urgency incontinence Dysplasia of cervix, low grade (MAGALY 1) Benign positional vertigo Neck pain Migraine Vitamin D deficiency Generalized anxiety disorder Surgical History History of colonoscopy History of esophagogastroduodenoscopy (EGD) History of blepharoplasty History of left salpingo-oophorectomy History of laparoscopic cholecystectomy Family History Father CVD (cardiovascular disease) Stroke FH: prostate cancer Mother Diabetes CVD (cardiovascular disease) Hypertension Sister Cancer Breast carcinoma, Onset Age: 25 Maternal Aunt Cancer Maternal Grandmother CVD (cardiovascular disease) Brother Substance abuse CVD (cardiovascular disease) Brother Colon cancer, Onset Age: 56 Social History Household Members: Family Housing: House Do you presently have visiting nurse or other home services: No Alcohol intake: current Alcohol intake frequency: a few times a week Alcohol type: beer, wine and hard liquor Comment: 2 days a week 2-3 glasses Patient Tobacco Use Status: Current everyday Tobacco user Tobacco use type: Cigarette Cigarette Packs Per Day: 0.5 Cigarettes Per Day: 5 Years Smoked: (onset 14yo, 1/2ppd x 45yrs, 22pyh) e-Cigarette/Vaping Use: Never Used Second Hand Smoke Exposure: Yes Substance Use Type: Crack/Cocaine Advance Directives Date on File: 11/04/21 service: No Current occupational status: employed Sexual orientation: Straight/Heterosexual Gender identity: Female Cognitive needs: No Hearing needs: No Vision needs: Yes Female Reproductive History Menstrual Age of Menarche: 12 Questionnaire PHQ-9 Over the last 2 weeks, how often have you been bothered by any of the following problems? 1. Little interest or pleasure in doing things: not at all 2. Feeling down, depressed, or hopeless: nearly every day 3. Trouble falling or staying asleep, or sleeping too much: nearly every day 4. Feeling tired or having little energy: nearly every day 5. Poor appetite or overeating: nearly every day 6. Feeling bad about yourself - or that you are a failure or have let yourself or your family down: not at all 7. Trouble concentrating on things, such as reading the newspaper or watching television: not at all 8. Moving or speaking so slowly that other people could have noticed. Or the opposite - being so fidgety or restless that you have been moving around a lot more than usual: not at all 9. Thoughts that you would be better off or of hurting yourself in some way: not at all Total score: 12 Depression Screening Interpretation: Positive Depression Screening Done: Yes Source: Developed by Drs. Marv Cantrell, Divine Melgoza, Thai Moore and colleagues, with an educational mariann from [employer]. Thrive Questionnaire Date Thrive assessed: 10/17/24 I am a: Patient What is your living situation today?: I have a steady place to live Within the past 12 months, did the food you bought not last and you didn't have the money to get more?: I choose not to answer this question Within the past 12 months, did you worry whether your food would run out before you got money to buy more?: I choose not to answer this question Do you have trouble paying for medicines?: I choose not to answer this question Do you have trouble getting transportation to medical appointments?: I choose not to answer this question Do you have trouble paying your heating and electricity bill?: I choose not to answer this question Do you have trouble taking care of your child, family member or friend?: I choose not to answer this question Do you have trouble with day-to-day activities such as bathing, preparing meals, shopping, managing finances, etc.?: I choose not to answer this question Are you currently unemployed and looking for a job?: I choose not to answer this question Are you interested in more education?: I choose not to answer this question Please select the resources that you would like help with: None Currently or been in a relationship where the following occur: I choose not to answer THRIVE Score: 0 AUDIT C Alcohol Use Questionnaire (AUDIT-C) 1. How often do you have a drink containing alcohol?: 2-3 times a week 2. How many drinks containing alcohol do you have on a typical day when you are drinking?: 1 or 2 3. How often do you have six or more drinks on one occasion?: Never Total Score: 3 LAINA-7 AMB Questionnaire LAINA-7 Date LAINA - 7 assessed: 07/11/24 Feeling nervous, anxious, or on edge: 1 = Several days Not being able to stop or control worryin = Not at all Worrying too much about different things: 0 = Not at all Trouble relaxin = Not at all Being so restless that it is hard to sit still: 0 = Not at all Becoming easily annoyed or irritable: 0 = Not at all Feeling afraid as if something awful might happen: 0 = Not at all Total LAINA-7 score (0-4 normal; 5-9 mild; 10-14 moderate; 15-21 severe): 1 Source: Developed by Drs. Marv Cantrell, Divine Melgzoa, Thai Moore and colleagues, with an educational mariann from [employer]. Physical exam (Primary Care) Vital Signs: Last Vital Signs Temp 97.1 F 02/13/25 09:54 Pulse 78 02/13/25 09:54 BP 130/60 02/13/25 09:54 Pulse Ox 99 02/13/25 09:54 Oxygen Delivery Method Room Air 02/13/25 09:54 BMI result Body Mass Index 21.8 Tobacco/Smoking Status: Tobacco use Status Tobacco use date assessed 02/13/25 02/13/25 09:58 Patient Tobacco Use Status Current everyday Tobacco 02/13/25 09:58 Tobacco use type Cigarette 02/13/25 09:58 e-Cigarette/Vaping Use Never Used 02/13/25 09:58 PHQ-9: PHQ-9 Score PHQ-9: Total score 12 02/13/25 10:24 Depression Screening Interpretation: Positive Thrive Assessment: Date of Thrive Assessment Date Thrive assessed 10/17/24 02/13/25 09:58 Currently or been in a relationship where the following occur: I choose not to answer Const General: alert; No acute distress Eyes Conjunctivae: conjunctivae normal Resp Auscultation: clear to auscultation bilaterally Cardio Rate: regular rate Rhythm: regular rhythm GI Inspection: Yes normal to inspection Extrem General: Yes normal to inspection and No edema Coding Level of Care Code Est Pt Level 4 (87070) Complex EM visit Add On G2211 Diagnoses Hypertension I10 Hypercholesterolemia E78.00 Gastroesophageal reflux disease without esophagitis K21.9 Esophagitis presence: without esophagitis COPD (chronic obstructive pulmonary disease) J44.9 Nicotine dependence, cigarettes, uncomplicated F17.210 Generalized anxiety disorder F41.1 Assessment & Plan Assessment & Plan (1) Hypertension: Code(s): I10 - Essential (primary) hypertension Category: Medical Plan: Continue with blood pressure medication. Decrease salt intake and exercise patient is on labetalol 100 mg twice a day nifedipine 30 mg once a day (2) Hypercholesterolemia: Code(s): E78.00 - Pure hypercholesterolemia, unspecified Category: Medical Plan: Avoid fried foods, chicken skin, eggs, butter margarine, pastries and meat. Be it pork or beef they have a lot of cholesterol LDL goal of less than 130 and triglyceride of less than 150 (3) GERD (gastroesophageal reflux disease): Code(s): K21.9 - Gastro-esophageal reflux disease without esophagitis Category: Medical Qualifiers: Esophagitis presence: without esophagitis Qualified Code(s): K21.9 - Gastro-esophageal reflux disease without esophagitis Plan: Avoid the foods that causes that usually spicy foods, tomato products, juices, coffee, soda and foods that your sensitive to. After eating do not lie down, allow 3-4 hours before in lie down. And keep the head of bed above 30 degrees to avoid the acid from going up. (4) COPD (chronic obstructive pulmonary disease): Comment: PFT November 2024Moderate obstructive ventilatory defect with no bronchodilator response. Decreased diffusion capacity suggests emphysema. Code(s): J44.9 - Chronic obstructive pulmonary disease, unspecified Category: Medical Plan: Patient is strongly advised to stop smoking! On albuterol as needed (5) Nicotine dependence, cigarettes, uncomplicated: Comment: (onset 14yo, 1/2ppd x 45yrs, 22pyh) lung cancer screening program January 2025 Code(s): F17.210 - Nicotine dependence, cigarettes, uncomplicated Category: Medical Plan: Patient is strongly advised to stop smoking. CT negative January 2025 yearly CAT scan (6) Generalized anxiety disorder: Comment: [facility] counselling Q week Mireya(declined 09/2023 Code(s): F41.1 - Generalized anxiety disorder Category: Medical Plan: Continue with counseling and therapy Plan History of Present Illness The patient is a 59-year-old female presenting with knee pain and hypertension management. The knee pain has been persistent, with previous x-rays indicating cortical dysfunction, though it was not severe at the time. The pain is described as widespread, affecting multiple joints, including the fingers. The patient reports that repetitive activities, such as caring for her mother, exacerbate the pain. Hypertension is being managed with medication, and the patient's blood pressure is currently stable. The patient is advised to continue with regular follow-up blood tests to monitor her condition. The patient has a history of varicose veins, which are noted but not currently causing significant issues. The patient is a smoker and has been advised to quit smoking to improve her overall health. She acknowledges the financial burden of smoking and expresses a desire to quit. Preventative care measures include being up to date with mammograms and having had a colon cancer screening in 2016. The patient has also received her shingles vaccination. Health Maintenance - Mammogram up to date - Colon cancer screening completed in 2016 - Shingles vaccination completed - Advised to quit smoking Social History - The patient is a smoker and has been advised to quit due to health and financial reasons. - The patient cares for her mother, which involves repetitive activities that exacerbate her pain. Review of Systems - Musculoskeletal: Reports widespread joint pain, including knees and fingers. - Cardiovascular: Denies chest pain or palpitations. Physical Exam - Musculoskeletal: Pain noted in multiple joints including fingers and knees Results - Imaging: Knee x-ray showed cortical dysfunction, not severe. - Screening: Mammogram up to date, colon cancer screening completed in 2016. - Labs: Follow-up blood tests recommended for hypertension management. Plan The patient is advised to continue taking meloxicam for pain management, particularly for the knee pain and widespread joint discomfort. Regular follow- up blood tests are recommended to monitor hypertension and triglyceride levels. The patient is encouraged to quit smoking to improve overall health and reduce financial burden. Preventative care measures such as mammograms and shingles vaccination are up to date, and the patient is reminded to maintain these screenings. Patient was informed and verbally consented to the use of an ambient scribe for clinic note documentation during this visit. Discussion Notes During the visit, I discussed the importance of managing knee pain with meloxicam and the need for regular blood tests to monitor hypertension and triglyceride levels. I emphasized the benefits of quitting smoking for health improvement and financial savings. We reviewed the patient's preventative care m easures, confirming that mammograms and shingles vaccinations are current. Patient Instructions - Continue taking meloxicam as prescribed for pain management. - Schedule regular blood tests to monitor blood pressure and triglyceride levels. - Quit smoking to improve health and save money. - Keep up with regular mammograms and vaccinations.
[2025-02-13 09:54] VITALS: BP 130/60; PULSE 78; TEMP 36.2; O2SAT 99; BMI 21.8
== END 2025-02-13 10:34 | disposition home or self-care (01) ==
LOC: HO.HMCH 09:44
PROVIDERS: PCP Internal Medicine; Visit Provider Internal Medicine
DX: I10 Essential (primary) hypertension (principal); E78.00 Pure hypercholesterolemia, unspecified; K21.9 Gastro-esophageal reflux disease without esophagitis; J44.9 Chronic obstructive pulmonary disease, unspecified; F17.210 Nicotine dependence, cigarettes, uncomplicated; F41.1 Generalized anxiety disorder

== ENCOUNTER → 2025-02-13 09:44 | Outpatient (BNVA) | payer OTHER, SELFPAY | PROVIDERS: PCP Internal Medicine; Visit Provider Internal Medicine | DX: I10 Essential (primary) hypertension (principal); E78.00 Pure hypercholesterolemia, unspecified; K21.9 Gastro-esophageal reflux disease without esophagitis; J44.9 Chronic obstructive pulmonary disease, unspecified; F17.210 Nicotine dependence, cigarettes, uncomplicated; F41.1 Generalized anxiety disorder; M25.569 Pain in unspecified knee; M79.645 Pain in left finger(s); M79.644 Pain in right finger(s) | CPT/HCPCS: 99212 ==

== ENCOUNTER 2025-06-08 10:54 | Outpatient (AMB) | payer OTHER, SELFPAY ==
--- NOTE | 2025-06-08 11:14 | MHC.PC.OV ---
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: No Accompanied by: Self / Same As Patient Allergies morphine (MORPHINE) Allergy (Intermediate, Verified 06/08/25 11:15) VOMITING Penicillins (PENICILLINS) Allergy (Intermediate, Verified 06/08/25 11:15) RASH Medication List - Last Reconciled 06/08/25 by Barbara Romeo Po, albuterol sulfate 90 mcg/actuation (Ventolin HFA) 2 puffs inhalation Q6H PRN alprazolam 0.25 mg PO DAILY atorvastatin 20 mg PO DAILY bisacodyl (Dulcolax (bisacodyl)) 20 mg (4 x 5 mg) PO ONCE 1 day bupropion HCl SR 150 mg PO BID cholecalciferol (vitamin D3) 50 mcg PO DAILY 90 days cyproheptadine 4 mg PO .qd 30 days docusate sodium (Colace) 100 mg PO DAILY fexofenadine (Carrie Allergy) 180 mg PO DAILY labetalol 100 mg PO BID 90 days meloxicam 15 mg PO DAILY methocarbamol 750 mg PO BEDTIME PRN nifedipine ER 30 mg PO DAILY omeprazole 20 mg PO DAILY 90 days polyethylene glycol 3350 (Miralax) 238 grams PO ONCE rizatriptan 10 mg PO .QD PRN 30 days triamcinolone acetonide 0.5% 1 appl topical BID Tobacco use date assessed: 02/13/25 Dental Screening Dental Screen Date: 02/13/25 HPI HPI Comments History of Present Illness Details History of Present Illness The patient is a 59 year old female presenting for a follow-up visit for management of chronic conditions. Her medical history is notable for generalized anxiety disorder, COPD, hypertension, and hypercholesterolemia. She is a smoker enrolled in a lung cancer screening program. The patient has a history of a thoracic aortic dissection, beginning at the distal left subclavian origin, which is being treated conservatively and monitored by vascular surgery. Recent imaging showed the dissection was essentially unchanged, measuring 3.4 cm with minimal growth. For the past two weeks, the patient has been experiencing significant right knee pain, which is associated with swelling, numbness, and difficulty with stairs. She denies any specific fall or injury. The pain affects her sleep. She reports that [id number] remedies like Bengay and Marteca de Ouvre have not been helpful. The patient also reports pain in her hand, describing difficulty bending it, which has been diagnosed as trigger finger. Lab work from August 2024 showed a normal blood count, electrolytes, renal function, blood sugar, and liver function. A cholesterol test from February 2024 revealed very high triglycerides. She has not had repeat blood work since her last cholesterol test in 2022. Health Maintenance - Mammogram: Up to date, with the last one completed in September 2024. - Lung cancer screening: The patient is enrolled in a lung cancer screening program, and her last CT scan of the lungs in January 2025 showed no suspicious pulmonary nodules. - Colonoscopy: Last performed in 2015. - Vaccinations: The patient has received her flu shot. - Tobacco use: Patient is a current smoker and was strongly advised to stop smoking. Social History - Substance Use: The patient is a current smoker. - Exercise: The patient reports she does some exercise. Results - Labs: Blood work from August 2024 showed a normal blood count, electrolytes, renal function, blood sugar, and liver function. - Labs: A cholesterol test from February 2024 showed very high triglycerides. - Imaging: A CT scan of the lung in January 2025 showed no suspicious pulmonary nodules. - Imaging: Recent imaging of the thoracic aortic dissection showed it to be essentially unchanged, measuring 3.4 cm. [facility] Medical History DeBakey type IIIb dissection of aorta (~01/2024) Hypertension Hypercholesterolemia COPD (chronic obstructive pulmonary disease) Nicotine dependence, cigarettes, uncomplicated GERD (gastroesophageal reflux disease) Constipation History of Helicobacter pylori infection Uterine prolapse Urinary urgency Urgency incontinence Dysplasia of cervix, low grade (MAGALY 1) Benign positional vertigo Neck pain Migraine Vitamin D deficiency Generalized anxiety disorder Surgical History History of colonoscopy History of esophagogastroduodenoscopy (EGD) History of blepharoplasty History of left salpingo-oophorectomy History of laparoscopic cholecystectomy Family History Father CVD (cardiovascular disease) Stroke FH: prostate cancer Mother Diabetes CVD (cardiovascular disease) Hypertension Sister Cancer Breast carcinoma, Onset Age: 25 Maternal Aunt Cancer Maternal Grandmother CVD (cardiovascular disease) Brother Substance abuse CVD (cardiovascular disease) Brother Colon cancer, Onset Age: 56 Social History Household Members: Family Housing: House Do you presently have visiting nurse or other home services: No Alcohol intake: current Alcohol intake frequency: a few times a week Alcohol type: beer, wine and hard liquor Comment: 2 days a week 2-3 glasses Patient Tobacco Use Status: Current everyday Tobacco user Tobacco use type: Cigarette Cigarette Packs Per Day: 0.5 Cigarettes Per Day: 5 Years Smoked: (onset 14yo, 1/2ppd x 45yrs, 22pyh) e-Cigarette/Vaping Use: Never Used Second Hand Smoke Exposure: Yes Substance Use Type: Crack/Cocaine Advance Directives Date on File: 11/04/21 service: No Current occupational status: employed Sexual orientation: Straight/Heterosexual Gender identity: Female Cognitive needs: No Hearing needs: No Vision needs: Yes Female Reproductive History Menstrual Age of Menarche: 12 Questionnaire Thrive Questionnaire Date Thrive assessed: 10/17/24 I am a: Patient What is your living situation today?: I have a steady place to live Within the past 12 months, did the food you bought not last and you didn't have the money to get more?: I choose not to answer this question Within the past 12 months, did you worry whether your food would run out before you got money to buy more?: I choose not to answer this question Do you have trouble paying for medicines?: I choose not to answer this question Do you have trouble getting transportation to medical appointments?: I choose not to answer this question Do you have trouble paying your heating and electricity bill?: I choose not to answer this question Do you have trouble taking care of your child, family member or friend?: I choose not to answer this question Do you have trouble with day-to-day activities such as bathing, preparing meals, shopping, managing finances, etc.?: I choose not to answer this question Are you currently unemployed and looking for a job?: I choose not to answer this question Are you interested in more education?: I choose not to answer this question Please select the resources that you would like help with: None Currently or been in a relationship where the following occur: I choose not to answer THRIVE Score: 0 LAINA-7 AMB Questionnaire LAINA-7 Date LAINA - 7 assessed: 07/11/24 Source: Developed by Drs. Marv Cantrell, Divine Melgoza, Thai Moore and colleagues, with an educational mariann from [employer]. Review of Systems Narrative Review of Systems - Musculoskeletal: Reports right knee pain for two weeks with associated swelling, numbness, and difficulty with stairs. - Musculoskeletal: Reports pain in one hand with difficulty bending. - General: Denies a fall. Physical exam (Primary Care) Vital Signs: Last Vital Signs Temp 97.1 F 06/08/25 11:16 Pulse 94 06/08/25 11:16 Resp 16 06/08/25 11:16 BP 106/56 L 06/08/25 11:16 Pulse Ox 97 06/08/25 11:16 Oxygen Delivery Method Room Air 06/08/25 11:16 BMI result Body Mass Index 22.5 Tobacco/Smoking Status: Tobacco use Status Tobacco use date assessed 02/13/25 06/08/25 11:22 Patient Tobacco Use Status Current everyday Tobacco 06/08/25 11:22 Tobacco use type Cigarette 06/08/25 11:22 e-Cigarette/Vaping Use Never Used 06/08/25 11:22 Thrive Assessment: Date of Thrive Assessment Date Thrive assessed 10/17/24 06/08/25 11:22 Currently or been in a relationship where the following occur: I choose not to answer Narrative Physical Exam - Extremities: Good pulse noted. - Right Knee: Tenderness to palpation. - Right Knee: Swelling present. - Right Knee: No erythema. - Hand: Asymmetric range of motion with less ability to bend one hand compared to the other. Const General: alert; No acute distress Eyes Conjunctivae: conjunctivae normal Resp Auscultation: clear to auscultation bilaterally Cardio Rate: regular rate Rhythm: regular rhythm GI Inspection: Yes normal to inspection Extrem General: Yes normal to inspection and No edema Coding Level of Care Code Est Pt Level 4 (33133) Add On Problem Visit Only Diagnoses Hypertension I10 Hypercholesterolemia E78.00 DeBakey type IIIb dissection of aorta I71.012 Gastroesophageal reflux disease without esophagitis K21.9 Esophagitis presence: without esophagitis COPD (chronic obstructive pulmonary disease) J44.9 Nicotine dependence, cigarettes, uncomplicated F17.210 Generalized anxiety disorder F41.1 Right knee pain M25.561 Left elbow pain M25.522 Assessment & Plan Assessment & Plan (1) Hypertension: Code(s): I10 - Essential (primary) hypertension Category: Medical Plan: Continue with blood pressure medication. Decrease salt intake and exercise patient is on labetalol 100 mg twice a day nifedipine 30 mg once a day (2) Hypercholesterolemia: Code(s): E78.00 - Pure hypercholesterolemia, unspecified Category: Medical Plan: Avoid fried foods, chicken skin, eggs, butter margarine, pastries and meat. Be it pork or beef they have a lot of cholesterol LDL goal of less than 100 and triglyceride of less than 150 on atorvastatin 20 mg once a day patient needs new blood work (3) DeBakey type IIIb dissection of aorta: Onset Date: ~01/2024 Comment: (January 202401/2024 CTA showed Type III B thoracic aorta dissection without associated aneurysmal dilatation, confined to a 7 cm segment of the proximal descending thoracic aorta beginning just distal to the left subclavian origin. Treated at [facility] [place] [place] non-operatively with BP managment) Code(s): I71.012 - Dissection of descending thoracic aorta Category: Medical Plan: Patient follows up with [facility] vascular received notes 05/28/2025 continuing to monitor. Last echocardiogram 3.4 cm (4) GERD (gastroesophageal reflux disease): Code(s): K21.9 - Gastro-esophageal reflux disease without esophagitis Category: Medical Qualifiers: Esophagitis presence: without esophagitis Qualified Code(s): K21.9 - Gastro-esophageal reflux disease without esophagitis Plan: Avoid the foods that causes that usually spicy foods, tomato products, juices, coffee, soda and foods that your sensitive to. After eating do not lie down, allow 3-4 hours before in lie down. And keep the head of bed above 30 degrees to avoid the acid from going up. (5) COPD (chronic obstructive pulmonary disease): Comment: PFT November 2024Moderate obstructive ventilatory defect with no bronchodilator response. Decreased diffusion capacity suggests emphysema. Code(s): J44.9 - Chronic obstructive pulmonary disease, unspecified Category: Medical Plan: Patient is strongly advised to stop smoking! Has albuterol inhaler as needed (6) Nicotine dependence, cigarettes, uncomplicated: Comment: (onset 14yo, 1/2ppd x 45yrs, 22pyh) lung cancer screening program January 2025 Code(s): F17.210 - Nicotine dependence, cigarettes, uncomplicated Category: Medical Plan: Lung cancer screening program with last echocardiogram in January 2025 (7) Generalized anxiety disorder: Comment: [facility] counselling Q week Arnett(declined 09/2023 Code(s): F41.1 - Generalized anxiety disorder Category: Medical Plan: Continue with counseling and therapy takes Wellbutrin and alprazolam (8) Right knee pain: Code(s): M25.561 - Pain in right knee Category: Medical (9) Left elbow pain: Code(s): M25.522 - Pain in left elbow Category: Medical Plan Plan Patient was informed and verbally consented to the use of an ambient scribe for clinic note documentation during this visit. 1. Right Knee Pain The patient reports right knee pain for the past two weeks with associated swelling and numbness, making it difficult to use stairs. An X-ray of the right knee will be ordered to investigate the cause. A referral for physical therapy will be placed to ensure the patient performs correct exercises. A higher dose of meloxicam will be prescribed temporarily for pain management. 2. Hypertension The patient will continue her current regimen of labetalol 100 mg twice daily and nifedipine 30 mg once daily. The bilateral leg swelling is noted as a likely side effect of nifedipine. 3. Hyperlipidemia The patient will continue atorvastatin 20 mg once daily with a target LDL less than 100 mg/dL and triglycerides less than 150 mg/dL. A request for new fasting blood work has been ordered, as her last test was in 2022. 4. Trigger Finger The patient experiences pain and difficulty bending her hand, identified as trigger finger, which is a tendon problem. The option of an orthopedic injection was mentioned, but the patient declined. 5. Thoracic Aortic Dissection The patient follows with vascular surgery for monitoring of her thoracic aortic dissection. Recent imaging showed the dissection is stable, and the plan is to continue monitoring. 6. Chronic Obstructive Pulmonary Disease The patient was strongly advised to stop smoking. She has an albuterol inhaler for as-needed use. 7. Generalized Anxiety Disorder The patient will continue medications including Wellbutrin and alprazolam. She will also continue with counseling and therapy. Discussion Notes I discussed with the patient her complaint of right knee pain, which has been present for about two weeks. I explained that her bilateral leg swelling is likely a side effect of her nifedipine medication. I recommended an X-ray of the right knee and a referral to physical therapy so she could learn the appropriate exercises to avoid further injury. I also explained that her hand pain is likely trigger finger, a tendon issue, and mentioned an injection by orthopedics as a treatment option, which she declined. I reviewed the recent note from her vascular specialist, which indicated her aortic dissection is stable and will continue to be monitored. I emphasized the need for new fasting blood work to check her cholesterol levels, as her last test was some time ago. I provided her with the lab request and instructed her to fast for eight hours prior. I also prescribed a temporary higher dose of meloxicam to help manage her knee pain until we can determine the cause. Patient Instructions - Get the X-ray of your right knee as ordered. - Attend at least one or two physical therapy sessions to learn the correct exercises for your knee. - Go for your fasting blood work. - You must not eat for 8 hours before the blood test, but you can drink sips of water. - Take the higher dose of meloxicam as prescribed to help with your knee pain for now. - The swelling in your legs is likely a side effect of your blood pressure medication, nifedipine. - Consider using a knee brace for support. - Continue taking your current medications for blood pressure, cholesterol, and anxiety. - It is very important that you stop smoking. Orders: Orders XR elbow LT 2V Today M25.522 - Pain in left elbow UA CC w/rflx Micro + Cult Today N39.41 - Urge incontinence, N81.4 - Uterovaginal prolapse, unspecified, R39.15 - Urgency of urination, Z01.419 - Encounter for gynecological examination (general) (routine) without abnormal findings Complete Blood Count Auto Diff Today I10 - Essential (primary) hypertension XR knee RT 2V Today M25.561 - Pain in right knee PT Evaluation and Treatment Today M25.522 - Pain in left elbow, M25.561 - Pain in right knee Medications: Changed From meloxicam 7.5 mg PO DAILY 90 tabs 0RF M94.0 - Chondrocostal junction syndrome [Tietze] To meloxicam 15 mg PO DAILY 14 tabs 0RF M94.0 - Chondrocostal junction syndrome [Tietze]
[2025-06-08 11:16] VITALS: BP 106/56; PULSE 94; RESP 16; TEMP 36.2; O2SAT 97; BMI 22.5
== END 2025-06-08 11:55 | disposition home or self-care (01) ==
LOC: HO.HMCH 10:55
PROVIDERS: PCP Internal Medicine; Visit Provider Internal Medicine
DX: I10 Essential (primary) hypertension (principal); E78.00 Pure hypercholesterolemia, unspecified; I71.012 Dissection of descending thoracic aorta; K21.9 Gastro-esophageal reflux disease without esophagitis; J44.9 Chronic obstructive pulmonary disease, unspecified; F17.210 Nicotine dependence, cigarettes, uncomplicated; F41.1 Generalized anxiety disorder; M25.561 Pain in right knee; M25.522 Pain in left elbow

== ENCOUNTER → 2025-06-08 10:54 | Outpatient (BNVA) | payer OTHER, SELFPAY | PROVIDERS: PCP Internal Medicine; Visit Provider Internal Medicine | DX: I10 Essential (primary) hypertension (principal); E78.00 Pure hypercholesterolemia, unspecified; I71.012 Dissection of descending thoracic aorta; K21.9 Gastro-esophageal reflux disease without esophagitis; J44.9 Chronic obstructive pulmonary disease, unspecified; F41.1 Generalized anxiety disorder; M25.561 Pain in right knee; M25.522 Pain in left elbow; F17.210 Nicotine dependence, cigarettes, uncomplicated | CPT/HCPCS: 99212 ==